=== PATIENT | male | born 1945 | race Caucasian/White ===

== ENCOUNTER 2017-10-02 22:02 | Inpatient (IN) | payer MEDICARE, BC, SELFPAY ==
[2017-10-02 20:50] VITALS: BP 130/76; PULSE 57; RESP 16; TEMP 36.9; O2SAT 95
[2017-10-02 20:51] VITALS: BP 128/73
[2017-10-02 20:55] VITALS: O2SAT 95
[2017-10-02 21:21] VITALS: PULSE 78
--- NOTE | 2017-10-02 21:35 | PCM.HP.STD ---
Problem List (1) Diabetes Status: Chronic (2) Stroke-like symptoms Status: Acute History of Present Illness Date of Admission: 10/02/17 Chief Complaint: Strokelike symptoms ?1 day. The patient is a 72 year old M with a significant history of diabetes who presents with strokelike symptoms that woke him up on the day of his admission. The patient stated that he woke up from sleep at about 5 AM on the day of admission and noted pain in his right frontal area. Also he noted a tightness and numbness around his right face including his right nose and his right cheek. Further, he noted that his right leg was weak and and it was difficult for him to walk in a straight line. Indeed he was veering towards his right side when he tried to walk. Associated with symptoms is nausea; vomiting; and a feeling of his environment spinning. His son reported that patient had slurred speech. On admission, Nurse reported that patient failed his swallow evaluation. Patient was at an outside hospital and he was transferred here for further care. Past Medical History Past Medical History (Chronic Problems): Chronic Problems Diabetes (Chronic) Allergies No Known Allergies Allergy (Verified 10/02/17 21:22) Home Medications: Ambulatory Orders Medication Instructions Recorded Aspirin [Aspirin, Baby] 81 mg PO DAILY@0800 10/02/17 Atorvastatin Calcium [Lipitor] 20 mg PO QHS 10/02/17 Glipizide 5 mg PO DAILY 10/02/17 Lisinopril [Zestril] 5 mg PO DAILY 10/02/17 Metformin HCl 1,000 mg PO DAILY 10/02/17 Naproxen 500 mg PO DAILY 10/02/17 Terazosin HCl 2 mg PO DAILY 10/02/17 Surgical History: no surgical history Lives: Alone Smoking Status: Former smoker Tobacco Use: Non-smoker Alcohol: None Drugs: None - *Family History Paternal History Items: Cancer Maternal History Items: Diabetes Review of Systems Constitutional: Denies: Chills, Fever, Weight Change Eyes: Denies: Blurred vision, Pain HEENT: Reports: Dysphasia Cardiovascular: Denies: Chest Pain, Palpitations Respiratory: Denies: Cough, Shortness of breath at rest, Sputum production Gastrointestinal: Denies: Abdominal Pain, Nausea, Vomiting Genitourinary: Denies: Dysuria Musculoskeletal: Reports: Joint Pain - Right knee. Denies: Joint Tenderness Skin: Denies: Rash, Wounds Neurological: Reports: Balance problems, Slurred speech, Difficulty swallowing, Focal weakness, Headaches, Numbness - Right face, Tingling - Right face Psychiatric: Denies: Anxiety, Depression, Homicidal Ideations, Suicidal Ideations Hematologic/ Lymphatic: Denies: Easy Bruising, Easy Bleeding VTE Information - Inpt Only VTE Present on Admission: No VTE Mechan Device Prophylaxis: None VTE Pharm Prophylaxis ordered?: Yes Patient Problems: Active and Suspected Problems Stroke-like symptoms (Acute) - Physical Exam General: Alert, Oriented x3, Cooperative HEENT: Atraumatic, PERRLA, EOMI, Normocephalic Neck: Supple Lungs: Clear to auscultation Cardiovascular: Regular rate, No murmurs Abdomen: Bowel Sounds Present, Soft, Non Tender Extremities: Tenderness - Right Lower leg Skin: No rashes, No breakdown Musculoskeletal: No Muscle Wasting Lymphatic: No Cervical, Supraclavicular, or Inguinal Adenopathy Neurological: - - Ptosis of right eye. Strength in the right slightly decreased about 4 out of 5. Strength in all other extremities 5/5 throughout. Reports dull sensation at right leg. Sensation at left leg unremarkable. Psych/Mental Status: Normal Affect, Appropriate Vital Signs Temp Pulse Resp BP Pulse Ox 98.4 F 57 L 16 128/73 H 95 10/02/17 20:50 10/02/17 20:50 10/02/17 20:50 10/02/17 20:51 10/02/17 20:50 Oxygen Delivery Method Room Air Weight: 97.7 kg Body Mass Index (BMI) 30.0 Assessment/Plan All Active Problems Stroke-like symptoms (Acute) The patient is a 72 year old M with a significant history of diabetes who presents with strokelike symptoms that woke him up on the day of his admission. Strokelike symptoms CT head from outside hospital did not show any acute pathology. MRI/MRA of head and neck ordered. Patient reports receiving aspirin per rectum from outside hospital. Since the patient failed swallow eval, will hold all p.o. medication until speech sees patient. PT/OT/ST evaluation and treatment. Blood glucose at outside hospital and over here is at least 300 Diabetes mellitus. Home oral hypoglycemic held as patient's feels a dysphagia screen. Lantus insulin and correction scale insulin ordered. Tobacco abuse Counseled Nicotine patch. DVT prophylaxis subcutaneous heparin. Code Visit Inpatient E&M: 80373 Init Hosp L3
[2017-10-02 22:26] LABS: Bedside Glucose 304 mg/dL (70-110)
[2017-10-02 23:04] VITALS: PULSE 81
[2017-10-02] MEDS: Insulin Lispro 100 UNIT/ML INSULN.PEN SQ (23:34)
[2017-10-02 23:38] VITALS: BP 131/60; PULSE 83; RESP 18; TEMP 36.6; O2SAT 96
[2017-10-03] VITALS (15 sets, daily range): BP systolic 126–162; BP diastolic 61–80; PULSE 74–97; RESP 16–18; TEMP 36.4–37.1; O2SAT 93–97
[2017-10-03] MEDS: Heparin Injection (Vial) 5,000 UNIT/ML VIAL 5000 UNIT SC ×3 (05:58→20:56)
[2017-10-03] MEDS: Insulin Lispro 100 UNIT/ML INSULN.PEN SQ ×4 (05:59→20:56)
[2017-10-03 06:11] LABS: Bedside Glucose 302 mg/dL (70-110)
[2017-10-03 07:06] LABS: Anion Gap 7 (5-15); BUN 26 mg/dL (7-18); BUN/Creat Ratio 19.3 RATIO (10-20); Calcium,Total 8.9 mg/dL (8.5-10.1); Chloride 104 mmol/L (98-107); Cholesterol 132 mg/dL (200); Creatinine, Serum 1.35 mg/dL (0.70-1.30); EST Glomerular Filtration Rate 56 mL/min (>60); Est Glom Filt Rate - Afr Amer 67 mL/min (>60); Estimated Creatinine Clearance 54.23 ml/min; Glucose 290 mg/dL (74-106); High Density Lipoprotein 34 mg/dL; Potassium 4.7 mmol/L (3.5-5.1); Sodium Level 136 mmol/L (136-145); Triglycerides 284 mg/dL; Very Low Density Lipoprotein 57 mg/dL (5-40)
--- NOTE | 2017-10-03 07:20 | ECHOD_ITS ---
Reason For Study: TIA/CVA Procedure This was a 2D Doppler, Color Flow transthoracic echocardiogram. Exam performed portable in patient room. Left Ventricle Normal size and thickness. The estimated ejection fraction is 65 %. Stage 1 diastolic dysfunction. No regional wall motion abnormalities noted. Right Ventricle Normal size and thickness. Normal systolic function. Atria Normal left atrium. Normal right atrium. Normal atrial septum. Bubble contrast study negative for right to left interatrial shunt. Mitral Valve The mitral valve is structurally normal. No prolapse or stenosis seen. Trivial mitral valve insufficiency. Tricuspid Valve Normal tricuspid valve. Mild (1+) tricuspid valve insufficiency. Right ventricular systolic pressure estimated to be 30 mmHg. Aortic Valve Trisinus/trileaflet aortic valve. Mild diffuse aortic valve thickening. Trivial aortic valve insufficiency. Pulmonic Valve Normal pulmonic valve. Trivial pulmonic valve insufficiency. Great Vessels Normal aortic root. Normal arch. Normal inferior vena cava. Inferior vena cava collapse with sniff. Pericardium/Pleural No pericardial effusion. Medication Performed a rapid injection of agitated mix of 9 cc saline and 1cc air to assess for atrial septal defect. MMode/2D Measurements & Calculations LVIDd: 4.2 cm IVSd: 0.84 cm Ao root diam: 3.0 cm LVIDs: 3.0 cm LVPWd: 0.85 cm RVDd: 3.4 cm FS: 28.0 % LAV(MOD-bp): 33.3 ml EDV(MOD-sp4): 54.9 ml SV(MOD-sp4): 33.5 ml LAV(MOD-bp) Indexed: 15.3 ml/m2 ESV(MOD-sp4): 21.4 ml LAV(MOD-sp2): 35.5 ml EF(MOD-sp4): 61.0 % LAV(MOD-sp4): 30.9 ml LA A4 area: 13.2 cm2 RA A4 area: 10.6 cm2 Doppler Measurements & Calculations MV E max zack: 93.8 cm/sec Lat Peak E' Zack: 10.0 cm/sec Med Peak E' Zack: 7.4 cm/sec MV A max zack: 87.6 cm/sec E/E' lat: 9.4 E/E' med: 12.6 MV E/A: 1.1 Ao V2 max: 122.3 cm/sec LV V1 max: 100.4 cm/sec PA V2 max: 105.8 cm/sec Ao max P.0 mmHg LV V1 max P.0 mmHg Ao V2 mean: 91.3 cm/sec Ao mean P.6 mmHg Ao V2 VTI: 29.4 cm TR max zack: 249.1 cm/sec TR max P.8 mmHg Interpretation Summary The estimated ejection fraction is 65 %. Stage 1 diastolic dysfunction. Bubble contrast study negative for right to left interatrial shunt. Right ventricular systolic pressure estimated to be 30 mmHg. Mild (1+) tricuspid valve insufficiency. Trivial aortic valve insufficiency. There is no comparison study available. Ordering Physician: Valentin Aldana Performed By: Shanna Tabares, MARISA, RVT
--- NOTE | 2017-10-03 07:51 | PCM.PROGNOTE ---
Patient Problems: Active and Suspected Problems Stroke-like symptoms (Acute) Subjective: Chief complaint: Follow-up after admission for strokelike symptoms. Patient seen and examined. No acute events overnight. He still complaining of numbness on the right cheek, difficulty opening the right eye. He mentioned that he tends to go to the right side when he walks because his right leg is weaker than the left. He reported difficulty swallowing. He denied chest pain or shortness of breath. He is afebrile, heart rate stable, blood pressure slightly elevated, pulse ox is maintained on room air. - Physical Exam General: Alert, Oriented x3, Cooperative, No apparent distress HEENT: Atraumatic, PERRLA, EOMI, Normocephalic Oral: Moist Mucosa, No Gingival or Mucosal Lesions/ Ulcerations Neck: Supple, No JVD, Negative Carotid Bruits, Trachea Midline, Thyroid Normal Size and Texture Lungs: Clear to auscultation, Normal air movement, No rhonchi, No wheeze, No rales Cardiovascular: Regular rate, Regular Rhythm, Normal S1, Normal S2, No murmurs, PMI Normal Abdomen: Bowel Sounds Present, Soft, Non Tender, Non-Distended, No Hepato-splenomegaly Extremities: No clubbing, No cyanosis, No edema Skin: No rashes, No breakdown Lymphatic: No Cervical, Supraclavicular, or Inguinal Adenopathy Neurological: Motor Exam 5/5 strength throughout, - - Minimal right-sided facial droop, other cranial nerves are intact. Psych/Mental Status: Normal Affect, Appropriate, Alert and oriented to time, place, person, mood and affect Vital Signs Temp Pulse Resp BP Pulse Ox 97.6 F L 74 16 162/76 H 93 10/03/17 05:50 10/03/17 06:59 10/03/17 05:50 10/03/17 05:50 10/03/17 05:50 Oxygen Delivery Method Room Air Weight: 215 lb 6.266 oz Body Mass Index (BMI) 30.0 Laboratory Tests Past 24 Hrs 10/02/17 10/03/17 10/03/17 22:40 06:25 06:25 Sodium 136 Potassium 4.7 Chloride 104 Carbon Dioxide 25.0 Anion Gap 7 BUN 26 H Creatinine 1.35 H Estim Creat Clear Calc 54.23 Est GFR (MDRD) Af Amer 67 Est GFR (MDRD) Non-Af 56 L BUN/Creatinine Ratio 19.3 Glucose 290 H Hemoglobin A1c Pending Calcium 8.9 Troponin I < 0.015 Triglycerides 284 H Cholesterol 132 LDL Cholesterol 41 VLDL Cholesterol 57 H HDL Cholesterol 34 L POC Glucose 10/03/17 10/02/17 05:57 22:16 POC Glucose 302 H 304 H Medical Necessity - Tobacco Use Smoking Status: Former smoker Tobacco Use: Non-smoker Assessment/Plan All Active Problems Stroke-like symptoms (Acute) This is a 72 years old male patient admitted directly from outside hospital for symptoms of right facial droop, right cheek numbness, difficulty swallowing and imbalance and he was admitted for evaluation for acute stroke. #1 strokelike symptoms: Patient still symptomatic with right facial droop, right cheek numbness, imbalance and going to the right side when walking. CT scan brain done at the outside hospital and was unremarkable, no acute infarct. His blood pressure slightly elevated, other vital signs are stable. EKG revealed normal sinus rhythm, normal AL interval, normal QRS, no evidence of acute ischemic changes or cardiac arrhythmias. Speech therapy consulted for evaluation for dysphagia. MRI brain and MRA of the head and neck ordered. Plan: Start aspirin, Lipitor, 2D echocardiogram, neurology consult. #2 hypertension: Blood pressure slightly elevated, allow permissive hypertension for probable stroke. Will resume lisinopril, labetalol IV as needed. #3 type 2 diabetes mellitus: Blood sugar has been in the 300s. Started on Lantus, sliding scale, will resume his diet, keep holding metformin. #4 hyperlipidemia: Lipid profile reviewed, revealed triglycerides of 284, total cholesterol of 132, LDL cholesterol 41 and HDL cholesterol 54. Started on Lipitor. #5 benign prostatic hypertrophy: Continue Cardura. #6 DVT prophylaxis: Subcu Lovenox. This note was generated with [employer] dictation software. It may contain incorrect words, spelling, and punctuation that were not noted in checking the note before signing. Code Visit Inpatient E&M: 87032 Subs Hosp L2
[2017-10-03 08:29] LABS: Hemoglobin A1c 10.6 % (4.2-6.3)
--- NOTE | 2017-10-03 10:42 | PCM.CONS.GEN ---
Reason for Consult Date of Consultation: 10/03/17 Reason for Consultation: NAUSEA, VERTIGO AND RIGHT SIDED WEAKNESS History of Present Illness: The patient is a 72 right handed white male yesterday experienced headache followed by nausea, vomiting, and right sided weakness. presented to [facility] and sent here. 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 denies vision changes. reports nausea improved but still very unsteady. takes baby asa daily at home. no tobacco. no etoh. 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 per admit h&p:he patient is a 72 year old M with a significant history of diabetes who presents with strokelike symptoms that woke him up on the day of his admission. The patient stated that he woke up from sleep at about 5 AM on the day of admission and noted pain in his right frontal area. Also he noted a tightness and numbness around his right face including his right nose and his right cheek. Further, he noted that his right leg was weak and and it was difficult for him to walk in a straight line. Indeed he was veering towards his right side when he tried to walk. Associated with symptoms is nausea; vomiting; and a feeling of his environment spinning. His son reported that patient had slurred speech. On admission, Nurse reported that patient failed his swallow evaluation. Patient was at an outside hospital and he was transferred here for further care. Past Medical History Past Medical History (Chronic Problems): Chronic Problems Benign prostatic hyperplasia (Chronic) Hyperlipidemia (Chronic) Hypertension (Chronic) Type 2 diabetes mellitus (Chronic) Allergies No Known Allergies Allergy (Verified 10/02/17 21:22) Home Medications: Ambulatory Orders Medication Instructions Recorded Aspirin [Aspirin, Baby] 81 mg PO DAILY@0800 10/02/17 Atorvastatin Calcium [Lipitor] 20 mg PO QHS 10/02/17 Glipizide 5 mg PO DAILY 10/02/17 Lisinopril [Zestril] 5 mg PO DAILY 10/02/17 Metformin HCl 1,000 mg PO DAILY 10/02/17 Naproxen 500 mg PO DAILY 10/02/17 Terazosin HCl 2 mg PO DAILY 10/02/17 Surgical History: no surgical history Lives: Alone Smoking Status: Former smoker Tobacco Use: Non-smoker Alcohol: None Drugs: None - *Family History Paternal History Items: Cancer Maternal History Items: Diabetes Patient Problems: Active and Suspected Problems Stroke-like symptoms (Acute) - Physical Exam General: Alert, Oriented x3, Cooperative HEENT: Atraumatic, PERRLA, EOMI Neurological: Cranial nerves II-XII grossly intact Psych/Mental Status: Normal Affect Vital Signs Temp Pulse Resp BP Pulse Ox 36.4 C L 74 16 162/76 H 93 10/03/17 05:50 10/03/17 06:59 10/03/17 05:50 10/03/17 05:50 10/03/17 08:07 Oxygen Delivery Method Room Air Weight: 97.7 kg Body Mass Index (BMI) 30.0 Laboratory Tests Past 24 Hrs 10/02/17 10/03/17 10/03/17 22:40 06:25 06:25 Sodium 136 Potassium 4.7 Chloride 104 Carbon Dioxide 25.0 Anion Gap 7 BUN 26 H Creatinine 1.35 H Estim Creat Clear Calc 54.23 Est GFR (MDRD) Af Amer 67 Est GFR (MDRD) Non-Af 56 L BUN/Creatinine Ratio 19.3 Glucose 290 H Hemoglobin A1c 10.6 H Calcium 8.9 Troponin I < 0.015 Triglycerides 284 H Cholesterol 132 LDL Cholesterol 41 VLDL Cholesterol 57 H HDL Cholesterol 34 L POC Glucose 10/03/17 10/02/17 05:57 22:16 POC Glucose 302 H 304 H Current Home Med List Medication Instructions Recorded Confirmed Type Aspirin [Aspirin, Baby] 81 mg PO DAILY@0800 10/02/17 10/02/17 History Atorvastatin Calcium [Lipitor] 20 mg PO QHS 10/02/17 10/02/17 History Glipizide 5 mg PO DAILY 10/02/17 10/02/17 History Lisinopril [Zestril] 5 mg PO DAILY 10/02/17 10/02/17 History Metformin HCl 1,000 mg PO DAILY 10/02/17 10/02/17 History Naproxen 500 mg PO DAILY 10/02/17 10/02/17 History Terazosin HCl 2 mg PO DAILY 10/02/17 10/02/17 History Current Medications Generic Name Dose Route Start Last Admin Trade Name Freq PRN Reason Stop Dose Admin Aspirin 81 mg 10/03/17 08:00 Aspirin, Baby PO DAILY@0800 [facility] Atorvastatin Calcium 80 mg 10/03/17 22:00 Lipitor PO QHS TEETEE Dextrose 0 gm 10/02/17 22:21 D50w Syringe IV X1 PRN Hypoglycemia Protocol Doxazosin Mesylate 2 mg 10/03/17 10:00 Cardura PO DAILY TEETEE Glipizide 5 mg 10/03/17 08:00 Glucotrol PO DAILY@0800 TEETEE Glucagon 1 mg 10/02/17 22:21 IM .X1 PRN Hypoglycemia Heparin Sodium (Porcine) 5,000 unit 10/03/17 06:00 10/03/17 05:58 Heparin Na SC 5,000 unit Q8 TEETEE Administration Sodium Chloride 1,000 mls @ 75 mls/hr 10/03/17 07:25 IV .[id number] TEETEE Insulin Glargine 10 units 10/03/17 04:30 10/03/17 05:58 Lantus ([facility]) SC 10 u DAILY TEETEE Administration Insulin Human Lispro 0 unit 10/03/17 03:54 10/03/17 05:59 Humalog Kwikpen ([facility]) SQ 6 u Q6 TEETEE Administration Protocol Labetalol HCl 10 mg 10/02/17 22:21 Trandate IV Q4H PRN PRN SBP>220 OR dbp >120 Lisinopril 5 mg 10/03/17 10:00 Zestril PO DAILY TEETEE Magnesium Hydroxide 30 ml 10/02/17 22:21 Milk Of Magnesia PO DAILY PRN Constipation Sodium Chloride 5 - 30 ml 10/02/17 21:25 IV UD PRN SALINE FLUSH MRI reviewed. Acute right lateral medullary infarct. MRA does not show significant stenosis Assessment/Plan All Active Problems Stroke-like symptoms (Acute) lateral medullary infarct pt/ot/sp plavix bp control consider rehab statin await echo tele
--- NOTE | 2017-10-03 10:45 | CON.PCM_ITS ---
Reason for Consult Date of Consultation: 10/03/17 Reason for Consultation: NAUSEA, VERTIGO AND RIGHT SIDED WEAKNESS History of Present Illness: The patient is a 72 right handed white male yesterday experienced headache followed by nausea, vomiting, and right sided weakness. presented to [facility] and sent here. 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 denies vision changes. reports nausea improved but still very unsteady. takes baby asa daily at home. no tobacco. no etoh. 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 per admit h&p:he patient is a 72 year old M with a significant history of diabetes who presents with strokelike symptoms that woke him up on the day of his admission. The patient stated that he woke up from sleep at about 5 AM on the day of admission and noted pain in his right frontal area. Also he noted a tightness and numbness around his right face including his right nose and his right cheek. Further, he noted that his right leg was weak and and it was difficult for him to walk in a straight line. Indeed he was veering towards his right side when he tried to walk. Associated with symptoms is nausea; vomiting; and a feeling of his environment spinning. His son reported that patient had slurred speech. On admission, Nurse reported that patient failed his swallow evaluation. Patient was at an outside hospital and he was transferred here for further care. Past Medical History Past Medical History (Chronic Problems): Chronic Problems Benign prostatic hyperplasia (Chronic) Hyperlipidemia (Chronic) Hypertension (Chronic) Type 2 diabetes mellitus (Chronic) Allergies No Known Allergies Allergy (Verified 10/02/17 21:22) Home Medications: Ambulatory Orders Medication Instructions Recorded Aspirin [Aspirin, Baby] 81 mg PO DAILY@0800 10/02/17 Atorvastatin Calcium [Lipitor] 20 mg PO QHS 10/02/17 Glipizide 5 mg PO DAILY 10/02/17 Lisinopril [Zestril] 5 mg PO DAILY 10/02/17 Metformin HCl 1,000 mg PO DAILY 10/02/17 Naproxen 500 mg PO DAILY 10/02/17 Terazosin HCl 2 mg PO DAILY 10/02/17 Surgical History: no surgical history Lives: Alone Smoking Status: Former smoker Tobacco Use: Non-smoker Alcohol: None Drugs: None - *Family History Paternal History Items: Cancer Maternal History Items: Diabetes Patient Problems: Active and Suspected Problems Stroke-like symptoms (Acute) - Physical Exam General: Alert, Oriented x3, Cooperative HEENT: Atraumatic, PERRLA, EOMI Neurological: Cranial nerves II-XII grossly intact Psych/Mental Status: Normal Affect Vital Signs Temp Pulse Resp BP Pulse Ox 36.4 C L 74 16 162/76 H 93 10/03/17 05:50 10/03/17 06:59 10/03/17 05:50 10/03/17 05:50 10/03/17 08:07 Oxygen Delivery Method Room Air Weight: 97.7 kg Body Mass Index (BMI) 30.0 Laboratory Tests Past 24 Hrs 10/02/17 10/03/17 10/03/17 22:40 06:25 06:25 Sodium 136 Potassium 4.7 Chloride 104 Carbon Dioxide 25.0 Anion Gap 7 BUN 26 H Creatinine 1.35 H Estim Creat Clear Calc 54.23 Est GFR (MDRD) Af Amer 67 Est GFR (MDRD) Non-Af 56 L BUN/Creatinine Ratio 19.3 Glucose 290 H Hemoglobin A1c 10.6 H Calcium 8.9 Troponin I < 0.015 Triglycerides 284 H Cholesterol 132 LDL Cholesterol 41 VLDL Cholesterol 57 H HDL Cholesterol 34 L POC Glucose 10/03/17 10/02/17 05:57 22:16 POC Glucose 302 H 304 H Current Home Med List Medication Instructions Recorded Confirmed Type Aspirin [Aspirin, Baby] 81 mg PO DAILY@0800 10/02/17 10/02/17 History Atorvastatin Calcium [Lipitor] 20 mg PO QHS 10/02/17 10/02/17 History Glipizide 5 mg PO DAILY 10/02/17 10/02/17 History Lisinopril [Zestril] 5 mg PO DAILY 10/02/17 10/02/17 History Metformin HCl 1,000 mg PO DAILY 10/02/17 10/02/17 History Naproxen 500 mg PO DAILY 10/02/17 10/02/17 History Terazosin HCl 2 mg PO DAILY 10/02/17 10/02/17 History Current Medications Generic Name Dose Route Start Last Admin Trade Name Freq PRN Reason Stop Dose Admin Aspirin 81 mg 10/03/17 08:00 Aspirin, Baby PO DAILY@0800 [facility] Atorvastatin Calcium 80 mg 10/03/17 22:00 Lipitor PO QHS TEETEE Dextrose 0 gm 10/02/17 22:21 D50w Syringe IV X1 PRN Hypoglycemia Protocol Doxazosin Mesylate 2 mg 10/03/17 10:00 Cardura PO DAILY TEETEE Glipizide 5 mg 10/03/17 08:00 Glucotrol PO DAILY@0800 TEETEE Glucagon 1 mg 10/02/17 22:21 IM .X1 PRN Hypoglycemia Heparin Sodium (Porcine) 5,000 unit 10/03/17 06:00 10/03/17 05:58 Heparin Na SC 5,000 unit Q8 TEETEE Administration Sodium Chloride 1,000 mls @ 75 mls/hr 10/03/17 07:25 IV .[id number] TEETEE Insulin Glargine 10 units 10/03/17 04:30 10/03/17 05:58 Lantus ([facility]) SC 10 u DAILY TEETEE Administration Insulin Human Lispro 0 unit 10/03/17 03:54 10/03/17 05:59 Humalog Kwikpen ([facility]) SQ 6 u Q6 TEETEE Administration Protocol Labetalol HCl 10 mg 10/02/17 22:21 Trandate IV Q4H PRN PRN SBP>220 OR dbp >120 Lisinopril 5 mg 10/03/17 10:00 Zestril PO DAILY TEETEE Magnesium Hydroxide 30 ml 10/02/17 22:21 Milk Of Magnesia PO DAILY PRN Constipation Sodium Chloride 5 - 30 ml 10/02/17 21:25 IV UD PRN SALINE FLUSH MRI reviewed. Acute right lateral medullary infarct. MRA does not show significant stenosis Assessment/Plan All Active Problems Stroke-like symptoms (Acute) lateral medullary infarct pt/ot/sp plavix bp control consider rehab statin await echo tele
[2017-10-03] MEDS: 0.9% Normal Saline 1,000 ML 75 ML IV (11:09)
[2017-10-03 12:45] LABS: Bedside Glucose 266 mg/dL (70-110)
--- NOTE | 2017-10-03 13:19 | CASEMGMT ---
Face to Face with patient for initial transition planning/care coordination assessment. JIMENA DANIEL introduced self and role at [facility], pt voices understanding and consents to assessment at this time. Pt is sitting up in bed in no distress at this time. Pt is A/O x4 at this time and answers all questions appropriately at this time. Care providers, pharmacy, and demographics verified. See attached link. Pt voices no further concerns/needs at this time. Advised pt to ask for CM if any further questions/concerns/needs arise, voices understanding. Referral to [facility] for inpt rehab, voices understanding. PLAN: [facility] JIMENA DANIEL
--- NOTE | 2017-10-03 13:46 | CASEMGMT ---
Updated clinicals with declination [facility] at [facility] and notified of [facility], dx and fax sent, voices understanding. Cynthia HESS CM
--- NOTE | 2017-10-03 13:57 | CASEMGMT ---
Patient expressed interest in going to [facility] 4th floor rehab unit to RN CM. SW called [facility] post acute referral line and left a message with referral. Plan: Possibly [facility] 4th floor rehab unit pending acceptance and insurance approval. Bhumika MOREIRA MSW
--- NOTE | 2017-10-03 14:00 | RAD_ITS ---
STUDY: SWALLOWING STUDY (MODIFIED BARIUM SWALLOW WITH SPEECH THERAPY) REASON FOR EXAM: Male, 72 years old. Dysphagia. TECHNIQUE: The examination was performed with Speech Pathology in attendance. Under fluoroscopic observation, the patient ingested thin barium, thick barium, barium pudding, and barium coated cracker. FLUOROSCOPY TIME: 2:13 minutes/seconds DOSE: 5.23 mGy RADIOLOGIST INVOLVEMENT: Yes, present COMPARISON: None available. FINDINGS: The following was observed during swallowing of the various mixtures of barium: Thin Barium: There was no finding of aspiration below the vocal cords. Thick Barium: There was no finding of aspiration below the vocal cords. Barium Pudding: There was no finding of aspiration below the vocal cords. Barium Coated Cracker: There was no finding of aspiration below the vocal cords. RAD/Swallowing Function w/Video IMPRESSION: No finding of increased risk for aspiration below the vocal cords. The swallow study findings were discussed with the patient by the speech pathologist at the conclusion of the examination. Please see speech pathology report for more information and recommendations. The procedure was performed by Bayron Jackson under the direct supervision of Dr. Richter. Electronically Signed: Carlton Richter, at 15:55 EDT Tel , Service support ,
--- NOTE | 2017-10-03 14:30 | SP.MBSS_ITS ---
PRIMARY / SECONDARY DIAGNOSIS: dysphagia (R13.10) REFERRING PHYSICIAN: Dr. Valentin Aldana MD CURRENT DIET: NPO DENTITION: dentures present, adequate fit MENTAL STATUS: adequate to facilitate participation RESPIRATORY STATUS: O2 via room air PREVIOUS MODIFIED BARIUM SWALLOW STUDY: none REASON FOR REFERRAL: Patient is a 72 year old male referred for a modified barium swallow (MBS) study to objectively assess the Patients oropharyngeal swallow function under fluoroscopy secondary to an acute right sided medullary cerebrovascular accident , with objective assessment under fluoroscopy indicated given the heightened concerns for silent aspiration associated with site of lesion. ADDITIONAL OBJECTIVE ASSESSMENT RESULTS: 10/03/2017 MRI revealed an acute right medullary infarct MEDICAL HISTORY: Benign prostatic hyperplasia, hyperlipidemia, hypertension, type 2 diabetes mellitus. STUDY FINDINGS: Patient participated in a Modified Barium Swallow (MBS) study on 10/03/2017. Dr. Richter was the radiologist present for this evaluation. This study was recorded in the lateral view and images were sent to PACs for storage. The following consistencies were presented to this patient for analysis of oropharyngeal swallow function: thin liquids, pudding, and a regular textured, Peggy Doone cookie. Results of the MBS are as follows: PENETRATION / ASPIRATION SCALE (AVALOS): 1 = does not enter airway 2 = enters airway/above vocal folds/ejected 3 = enters airway/above vocal folds/not ejected 4 = enters airway/contacts vocal folds/ejected 5 = enters airway/contacts vocal folds/not ejected 6 = enters airway/below vocal folds/ejected 7 = enters airway/below vocal folds/not ejected despite effort 8 = enters airway/below vocal folds/no effort PENETRATION / ASPIRATION SCALE (SCORE): Thin liquid - 5 mL tsp.: 1 Thin liquids via cup (single sip): 1 Thin liquids via cup (single sip): 1 Thin liquids via cup (single sip): 1 Thin liquids via straw (single sip): 1 Thin liquids via straw (sequential swallows): 2 Pudding via spoon: 1 Pudding via spoon (right head turn): 1 Pudding via spoon (left head turn): 1 Regular textured cookie (right head turn): 1 Thin liquids via straw (single sip): 3 Thin liquids via straw (sequential swallows): 3 Thin liquids via straw (single sip): 1 Thin liquids via straw (single sip): 1 IMPRESSION: DIAGNOSIS: mild to moderate oropharyngeal dysphagia (R13.12) ORAL PHASE CHARACTERIZED BY: LABIAL SEAL: no labial escape TONGUE CONTROL DURING BOLUS MANIPULATION: escape to lateral buccal cavity/ floor of mouth BOLUS PREPARATION / MASTICATION: slow prolonged chewing/mashing with complete recollection BOLUS TRANSPORT / LINGUAL MOTION: brisk tongue motion ORAL RESIDUE: trace residue lining oral structures PHARYNGEAL PHASE CHARACTERIZED BY: INITIATION OF PHARYNGEAL SWALLOW: bolus head in pyriforms at first hyoid excursion SOFT PALATE ELEVATION: no bolus between soft palate and pharyngeal wall LARYNGEAL ELEVATION: complete superior movement of thyroid cartilage with complete approximation of arytenoids cartilage to epiglottic petiole ANTERIOR HYOID EXCURSION: partial anterior movement EPIGLOTTIC MOVEMENT: complete epiglottic inversion LARYNGEAL VESTIBULE CLOSURE AT HEIGHT OF SWALLOW: intermittent incomplete laryngeal vestibule closure with narrow column of air/contrast in laryngeal vestibule PHARYNGEAL STRIPPING WAVE: pharyngeal stripping wave present / diminished PHARYNGOESOPHAGEAL SEGMENT OPENING: complete distension and complete duration with no obstruction of flow TONGUE BASE RETRACTION: narrow column of contrast between tongue base and posterior pharyngeal wall PHARYNGEAL RESIDUE: collection of residue within or on pharyngeal structures ( valleculae, posterior pharyngeal wall, and pyriforms); trace residue within or on pharyngeal structures (pharyngoesophageal segment opening) ESOPHAGEAL PHASE CHARACTERIZED BY: ESOPHAGEAL BOLUS CLEARANCE IN THE UPRIGHT POSITION: could not view EFFECTS OF TREATMENT STRATEGIES ATTEMPTED: Left head turn = ineffective Right head turn = moderately effective Liquid chaser = moderately effective Reduced bolus size = moderately effective DIET TEXTURE RECOMMENDATIONS: Will recommend a mechanical soft textured, thin liquid diet. COMPENSATORY STRATEGIES RECOMMENDED: Supervision with assistance as needed, right head turn with solid textures, check for right sided buccal pocketing, liquid chaser at reasonable intervals, reduced bolus volume, seated upright at 90 degrees during PO intake, remain upright for 30-60 minutes post meal (GERD precaution), medications with applesauce. INTERPRETATION OF RESULTS: Patient presents with mild to moderate oropharyngeal dysphagia (R13.12) secondary to an acute right sided medullary cerebrovascular accident. Oral phase primarily marked by mild mastication inefficiency / prolonged mastication (albeit effective);and poor oral clearance secondary to reduced intraoral sensitivity / coordination resulting in subadaquate oral clearance / buccal pocketing, little clinical significance under fluoroscopy, though would advise concern during prolonged intake. Pharyngeal phase primarily marked by moderate pharyngeal dysmotility with suspected right sided impairment (could not stand Patient due to balance concerns / fall risk); impaired pharyngeal swallow onset timing resulting in suboptimal bolus location upon swallow onset; reduced closure of the airway during deglutition attributed to reduced anterior hyoid excursion resulting in inconsistent laryngeal vestibule closure / pressure generated to expel penetrated material. All deficits ameliorated with right head turn and reduction in bolus volume. Prominent cricopharyngeal bar located at the C-6 level, no effect on pharyngoesophageal motility. Belching and hiccups noted post intake (approximately 5 minutes following trial completion). No aspiration appreciated throughout trials, unable to definitively rule out silent aspiration. RECOMMENDATIONS: Patient requires intensive skilled speech-language intervention targeting continued diet texture management (would consider advancement to soft / regular textures after independent execution of right head turn maneuver); training and implementation of recommended compensatory strategies; training and implementation of recommended oropharyngeal strengthening exercises to facilitate improved labial control / strength, lingual control / strength, laryngeal vestibule closure / pressure, and pharyngeal motility; ADDITIONAL COMMENTS/RECOMMENDATIONS: Results and recommendations were discussed with the Patient immediately following MBS completion, with the Patient verbalizing understanding and agreement with all recommendations and education provided. IMAGE COUNT: [id number] Samson Persaud M.A., CCC-CATALOGUE CLERK [facility] Speech-Language Pathology Department [email or web address]
[2017-10-03] MEDS: Lisinopril 5 MG Tablet PO (17:23)
[2017-10-03] MEDS: Doxazosin 1 MG Tablet 2 MG PO (17:23)
[2017-10-03] MEDS: glipiZIDE 5 MG Tablet PO (17:23)
[2017-10-03] MEDS: Aspirin 81 MG TAB.CHEW PO (17:24)
[2017-10-03 17:40] LABS: Bedside Glucose 236 mg/dL (70-110)
[2017-10-03] MEDS: Atorvastatin Calcium 80 MG Tablet PO (20:56)
[2017-10-03] MEDS: 0.9% NaCl Peripheral Flush Adult/Peds IV (20:57)
--- NOTE | 2017-10-03 22:21 | MRI_ITS ---
STUDY: MRA OF THE HEAD WITHOUT CONTRAST REASON FOR EXAM: Male, 72 years old. CVA. 1 day of right facial numbness and droop, difficulty swallowing, right leg weakness. TECHNIQUE: 3-D [id number] (TOF) imaging was performed with MIPs. The study was performed unenhanced. COMPARISON: None. FINDINGS: Normal bilateral petrous carotid arteries. Normal right cavernous carotid artery with a normal supraclinoid bifurcation. Normal left cavernous carotid artery with a normal supraclinoid bifurcation. Normal right A1 segments of the anterior cerebral artery. Normal left A1 segments of the anterior cerebral artery. Normal intact anterior communicating artery (ACOM). Normal bilateral A2 segments of the anterior cerebral arteries. Normal right M1 and M2 segments of the middle cerebral arteries, with a normal M1 bifurcation. Normal left M1 and M2 segments of the middle cerebral arteries, with a normal M1 bifurcation. There is non-visualization of the right posterior communicating artery (PCOM). There is non-visualization of the left posterior communicating artery (PCOM). Normal bilateral vertebral arteries. Normal basilar artery with a normal basilar bifurcation. The visualized bilateral superior cerebellar (SCA) arteries are normal. Normal bilateral P1, P2 and visualized P3 segments of the posterior cerebral arteries. There is no demonstrated aneurysm of the torres [place] of [place]. There is no major vessel occlusion or hemodynamically significant stenosis. There is no demonstrated abnormality of the visualized brain. MRI/MRA Head ONLY without Contrast IMPRESSION: Normal MRA of the head Electronically Signed: Marina Gates MD at 10:21 EDT Tel , Service support ,
--- NOTE | 2017-10-03 22:21 | MRI_ITS ---
STUDY: MRI BRAIN WITHOUT CONTRAST REASON FOR EXAM: Male, 72 years old. CVA,1 day of right facial numbness and droop, difficulty swallowing, right leg weakness TECHNIQUE: Standardized multiplanar fat and water weighted pulse sequences were obtained. COMPARISON: None. FINDINGS: There is mild cerebral atrophy with widening of the extra-axial spaces and ventricular dilatation. There are periventricular and subcortical white matter hyperintensities, consistent with mild chronic microvascular ischemic changes. There is a 6 mm area of restricted diffusion (diffusion image #7 series 4) RIGHT medulla with correlated drop of signal on a DC map, suspicious for acute infarction. Normal bilateral basal ganglia. Normal thalami. There is no extra-axial fluid accumulation. Normal flow voids within the major intracranial circulation suggesting patency by spin echo criteria. Normal sella turcica, pituitary gland, infundibular stalk, optic chiasm and hypothalamus. Normal tectal plate and pineal gland. Normal visualized paranasal sinuses. MRI/Brain without Contrast IMPRESSION: Acute right medullary infarction. N.B. : The above information has been verbally conveyed by Marina Gates MD to Shanna Rosado , [facility]- In-Patient RN, on 10/03/2017 10:49:52 (ET). Electronically Signed: Marina Gates MD at 10:52 EDT Tel , Service support ,
--- NOTE | 2017-10-03 22:21 | MRI_ITS ---
STUDY: MRA NECK WITH AND WITHOUT CONTRAST REASON FOR EXAM: Male, 72 years old. CVA,1 day of right facial numbness and droop, difficulty swallowing, right leg weakness. TECHNIQUE: 3-D [id number]-mhyjsv (TOF) imaging was performed in an 1.5 T MRI scanner. 10 ml of Gadavist was administered for the contrast enhanced images. COMPARISON: None. FINDINGS: RIGHT CAROTID ARTERIES: Normal right common carotid artery (CCA). Normal right common carotid bulb. Normal origin of the right internal carotid (ICA) artery without a hemodynamically significant stenosis. Normal visualized cervical portion of the right internal carotid artery. Normal origin of the right external carotid artery (ECA). LEFT CAROTID ARTERIES: Normal left common carotid artery (CCA). Normal left common carotid bulb. Normal origin of the left internal carotid (ICA) artery without a hemodynamically significant stenosis. Normal visualized cervical portion of the left internal carotid artery. Normal origin of the left external carotid artery (ECA). VERTEBRAL ARTERIES: Normal antegrade flow within the bilateral vertebral artery without a hemodynamically significant stenosis. MRI/MRA Neck WITH and W/O Contrast IMPRESSION: Unremarkable bilateral cervical carotid and vertebral arteries. Electronically Signed: Marina Gates MD at 10:36 EDT Tel , Service support ,
[2017-10-03 22:45] LABS: Bedside Glucose 246 mg/dL (70-110)
[2017-10-04] VITALS (14 sets, daily range): BP systolic 111–152; BP diastolic 70–78; PULSE 79–106; RESP 16–18; TEMP 36.7–37.1; O2SAT 95–98
[2017-10-04] MEDS: 0.9% Normal Saline 1,000 ML 75 ML IV (02:40)
[2017-10-04] MEDS: 0.9% NaCl Peripheral Flush Adult/Peds IV (02:41)
[2017-10-04] MEDS: Heparin Injection (Vial) 5,000 UNIT/ML VIAL 5000 UNIT SC ×3 (06:19→21:34)
[2017-10-04 06:29] LABS: Absolute Lymphocyte Count 1.73 X10^3/ul (0.83-4.51); Basophil# 0.04 X10^3/uL; Basophil% 0.7 % (0-1); Eosinophil# 0.21 X10^3/uL; Eosinophils% 3.9 % (0-5); Hematocrit 38.9 % (40-54); Hemoglobin 13.3 g/dl (13.0-16.5); Lymphocyte # 1.73 X10^3/ul (4.0); Lymphocyte % 31.8 % (19-41); Mean Corp Hgb Conc 34.2 g/gl (32-36); Mean Corpuscular Hgb 29.6 pg (27.0-32.0); Mean Corpuscular Volume 86.4 fL (80-94); Mean Platelet Vol. 9.7 fl (6.2-12.0); Monocyte# 0.43 X10^3/uL; Monocyte% 7.9 % (0-10); Neutrophil # 3.01 X10^3/uL (2.7-7.7); Neutrophil % 55.3 % (47-70); Platelet Count 190 K/mm3 (150-450); RBC Distribution Width CV 13.2 % (11.6-14.6); RBC Distribution Width SD 40.7 fl (35.1-43.9); White Blood Count 5.4 K/mm3 (4.4-11.0)
[2017-10-04 06:30] LABS: POSITIVE COUNT NO; POSITIVE DIFFERENTIAL NO; POSITIVE MORPHOLOGY NO
[2017-10-04 06:34] LABS: Anion Gap 8 (5-15); BUN 19 mg/dL (7-18); BUN/Creat Ratio 14.6 RATIO (10-20); Calcium,Total 8.5 mg/dL (8.5-10.1); Chloride 105 mmol/L (98-107); EST Glomerular Filtration Rate 58 mL/min (>60); Est Glom Filt Rate - Afr Amer 70 mL/min (>60); Estimated Creatinine Clearance 56.31 ml/min; Glucose 245 mg/dL (74-106); Potassium 4.4 mmol/L (3.5-5.1); Sodium Level 137 mmol/L (136-145)
[2017-10-04 06:51] LABS: Bedside Glucose 250 mg/dL (70-110)
--- NOTE | 2017-10-04 07:52 | PCM.PROGNOTE ---
Patient Problems: Active and Suspected Problems Stroke-like symptoms (Acute) Subjective: Chief complaint: Follow-up after admission for acute right medullary infarction. Patient seen and examined. No acute events overnight. He is still complaining of right cheek. Power of the right side is almost normal. He mentioned that he still drifts towards the right side when he walks. Denied chest pain or shortness of breath. His vital signs are stable. - Physical Exam General: Alert, Oriented x3, Cooperative, No apparent distress HEENT: Atraumatic, PERRLA, EOMI, Normocephalic Oral: Moist Mucosa, No Gingival or Mucosal Lesions/ Ulcerations Neck: Supple, No JVD, Negative Carotid Bruits, Trachea Midline, Thyroid Normal Size and Texture Lungs: Clear to auscultation, Normal air movement, No rhonchi, No wheeze, No rales Cardiovascular: Regular rate, Regular Rhythm, Normal S1, Normal S2, PMI Normal Abdomen: Bowel Sounds Present, Soft, Non Tender, Non-Distended, No Hepato-splenomegaly Extremities: No clubbing, No cyanosis, No edema Skin: No rashes, No breakdown Lymphatic: No Cervical, Supraclavicular, or Inguinal Adenopathy Neurological: Motor Exam 5/5 strength throughout, - - Minimal right facial droop, other cranial nerves are intact. Psych/Mental Status: Normal Affect, Appropriate, Alert and oriented to time, place, person, mood and affect Vital Signs Temp Pulse Resp BP Pulse Ox 98.6 F 85 16 127/71 H 98 10/04/17 06:15 10/04/17 06:59 10/04/17 06:15 10/04/17 06:15 10/04/17 06:15 Oxygen Delivery Method Room Air Weight: 215 lb 6.266 oz Body Mass Index (BMI) 30.0 Intake and Output for Last 24 Hours 10/02/17 10/03/17 10/04/17 23:59 23:59 23:59 Intake Total 487 / 487 697 / 697 Balance 487 / 487 697 / 697 Laboratory Tests Past 24 Hrs 10/03/17 10/04/17 10/04/17 06:25 06:00 06:00 WBC 5.4 RBC 4.50 L Hgb 13.3 Hct 38.9 L MCV 86.4 MCH 29.6 MCHC 34.2 RDW 13.2 RDW Differential 40.7 Plt Count 190 MPV 9.7 Immature Gran % (Auto) 0.400 Neut % (Auto) 55.3 Lymph % (Auto) 31.8 [place] % (Auto) 7.9 Eos % (Auto) 3.9 Baso % (Auto) 0.7 Absolute Neuts (auto) 3.0 Absolute Lymphs (auto) 1.73 Total Counted Not Reportable Sodium 137 Potassium 4.4 Chloride 105 Carbon Dioxide 24.0 Anion Gap 8 BUN 19 H Creatinine 1.30 Estim Creat Clear Calc 56.31 Est GFR (MDRD) Af Amer 70 Est GFR (MDRD) Non-Af 58 L BUN/Creatinine Ratio 14.6 Glucose 245 H Hemoglobin A1c 10.6 H Calcium 8.5 POC Glucose 10/04/17 10/03/17 10/03/17 06:48 20:53 17:14 POC Glucose 250 H 246 H 236 H 10/03/17 12:36 POC Glucose 266 H Medical Necessity - Tobacco Use Smoking Status: Former smoker Tobacco Use: Non-smoker Assessment/Plan All Active Problems Stroke-like symptoms (Acute) This is a 72 years old male patient admitted directly from outside hospital for symptoms of right facial droop, right cheek numbness, difficulty swallowing and imbalance and he was admitted for evaluation for acute stroke. #1 Acute right medullary infarction: With resultant minimal right facial droop/right cheek numbness and dysphagia. MRI of the brain revealed acute right medullary infarction. MRA of the head and neck revealed no hemodynamically significant vascular disease or stenosis. 2D echocardiogram revealed ejection fraction 65%, stage I diastolic dysfunction and bubble contrast study negative for phnod-ak-epap shunt. Patient is on Plavix and Lipitor. Blood pressure under control. Neurology consulted. Plan for placement to nursing home facility versus rehabilitation. #2 dysphagia: Secondary to above. Patient was seen by speech therapy, on soft mechanical diet and regular temp liquid. #3 hypertension: Blood pressure stabilized. He is on lisinopril. #4 type 2 diabetes mellitus: Blood sugar has been in 200-300s. He is on Lantus, sliding scale, on glipizide as well. Metformin held. Plan to change Lantus to Levemir 8 units twice daily. #5 hyperlipidemia: Continue Lipitor. #6 benign prostatic hypertrophy: Continue Cardura. #7 DVT prophylaxis: Subcu Lovenox. This note was generated with [employer] software. It may contain incorrect words, spelling, and punctuation that were not noted in checking the note before signing.
--- NOTE | 2017-10-04 07:58 | PN_ITS ---
Patient Problems: Active and Suspected Problems Stroke-like symptoms (Acute) Subjective: Chief complaint: Follow-up after admission for acute right medullary infarction. Patient seen and examined. No acute events overnight. He is still complaining of right cheek. Power of the right side is almost normal. He mentioned that he still drifts towards the right side when he walks. Denied chest pain or shortness of breath. His vital signs are stable. - Physical Exam General: Alert, Oriented x3, Cooperative, No apparent distress HEENT: Atraumatic, PERRLA, EOMI, Normocephalic Oral: Moist Mucosa, No Gingival or Mucosal Lesions/ Ulcerations Neck: Supple, No JVD, Negative Carotid Bruits, Trachea Midline, Thyroid Normal Size and Texture Lungs: Clear to auscultation, Normal air movement, No rhonchi, No wheeze, No rales Cardiovascular: Regular rate, Regular Rhythm, Normal S1, Normal S2, PMI Normal Abdomen: Bowel Sounds Present, Soft, Non Tender, Non-Distended, No Hepato- splenomegaly Extremities: No clubbing, No cyanosis, No edema Skin: No rashes, No breakdown Lymphatic: No Cervical, Supraclavicular, or Inguinal Adenopathy Neurological: Motor Exam 5/5 strength throughout, - - Minimal right facial droop , other cranial nerves are intact. Psych/Mental Status: Normal Affect, Appropriate, Alert and oriented to time, place, person, mood and affect Vital Signs Temp Pulse Resp BP Pulse Ox 98.6 F 85 16 127/71 H 98 10/04/17 06:15 10/04/17 06:59 10/04/17 06:15 10/04/17 06:15 10/04/17 06:15 Oxygen Delivery Method Room Air Weight: 215 lb 6.266 oz Body Mass Index (BMI) 30.0 Intake and Output for Last 24 Hours 10/02/17 10/03/17 10/04/17 23:59 23:59 23:59 Intake Total 487 / 487 697 / 697 Balance 487 / 487 697 / 697 Laboratory Tests Past 24 Hrs 10/03/17 10/04/17 10/04/17 06:25 06:00 06:00 WBC 5.4 RBC 4.50 L Hgb 13.3 Hct 38.9 L MCV 86.4 MCH 29.6 MCHC 34.2 RDW 13.2 RDW Differential 40.7 Plt Count 190 MPV 9.7 Immature Gran % (Auto) 0.400 Neut % (Auto) 55.3 Lymph % (Auto) 31.8 Kay % (Auto) 7.9 Eos % (Auto) 3.9 Baso % (Auto) 0.7 Absolute Neuts (auto) 3.0 Absolute Lymphs (auto) 1.73 Total Counted Not Reportable Sodium 137 Potassium 4.4 Chloride 105 Carbon Dioxide 24.0 Anion Gap 8 BUN 19 H Creatinine 1.30 Estim Creat Clear Calc 56.31 Est GFR (MDRD) Af Amer 70 Est GFR (MDRD) Non-Af 58 L BUN/Creatinine Ratio 14.6 Glucose 245 H Hemoglobin A1c 10.6 H Calcium 8.5 POC Glucose 10/04/17 10/03/17 10/03/17 06:48 20:53 17:14 POC Glucose 250 H 246 H 236 H 10/03/17 12:36 POC Glucose 266 H Medical Necessity - Tobacco Use Smoking Status: Former smoker Tobacco Use: Non-smoker Assessment/Plan All Active Problems Stroke-like symptoms (Acute) This is a 72 years old male patient admitted directly from outside hospital for symptoms of right facial droop, right cheek numbness, difficulty swallowing and imbalance and he was admitted for evaluation for acute stroke. #1 Acute right medullary infarction: With resultant minimal right facial droop/ right cheek numbness and dysphagia. MRI of the brain revealed acute right medullary infarction. MRA of the head and neck revealed no hemodynamically significant vascular disease or stenosis. 2D echocardiogram revealed ejection fraction 65%, stage I diastolic dysfunction and bubble contrast study negative for mbztx-du-apqu shunt. Patient is on Plavix and Lipitor. Blood pressure under control. Neurology consulted. Plan for placement to intermediate facility versus rehabilitation. #2 dysphagia: Secondary to above. Patient was seen by speech therapy, on soft mechanical diet and regular temp liquid. #3 hypertension: Blood pressure stabilized. He is on lisinopril. #4 type 2 diabetes mellitus: Blood sugar has been in 200-300s. He is on Lantus , sliding scale, on glipizide as well. Metformin held. Plan to change Lantus to Levemir 8 units twice daily. #5 hyperlipidemia: Continue Lipitor. #6 benign prostatic hypertrophy: Continue Cardura. #7 DVT prophylaxis: Subcu Lovenox. This note was generated with [employer] software. It may contain incorrect words, spelling, and punctuation that were not noted in checking the note before signing.
[2017-10-04] MEDS: Insulin Lispro 100 UNIT/ML INSULN.PEN SQ ×4 (08:04→21:34)
[2017-10-04] MEDS: Doxazosin 1 MG Tablet 2 MG PO (08:05)
[2017-10-04] MEDS: Lisinopril 5 MG Tablet PO (08:05)
[2017-10-04] MEDS: glipiZIDE 5 MG Tablet PO (08:05)
[2017-10-04] MEDS: Clopidogrel Bisulfate 75 MG Tablet PO (08:11)
[2017-10-04] MEDS: Docusate Sodium 100 MG Capsule PO (08:11)
--- NOTE | 2017-10-04 08:50 | CASEMGMT ---
SW spoke w/Monalisa in rehab, she states pt is appropriate for rehab, they will start precert this morning. SW faxed pt's insurance cards to rehab. KD will continue to follow. VIGNESH Azul, REMNANT SORTER
--- NOTE | 2017-10-04 11:29 | CASEMGMT ---
SW spoke w/Rosa Elena, pt's primary insurance is [employer], [employer] is secondary. Rosa Elena states if pt is denied rehab, [facility] would be able to take him if pt would like to do this. SW spoke w/pt in the room, explained that [employer] is primary and they often do not approve rehab for pts. SW inquired w/pt about a second option if rehab is denied. Pt is agreeable to referral to [facility], SW explained that TCU has a bed and can take pt if rehab is denied by insurance. Pt states understanding. SW called Rosa Elena, let her know pt is agreeable to TCU if rehab is denied. KD will continue to follow. VIGNESH Azul, LEGAL CASHIER
[2017-10-04 13:06] LABS: Bedside Glucose 318 mg/dL (70-110)
[2017-10-04 17:26] LABS: Bedside Glucose 278 mg/dL (70-110)
[2017-10-04] MEDS: Atorvastatin Calcium 80 MG Tablet PO (21:31)
[2017-10-04 23:41] LABS: Bedside Glucose 308 mg/dL (70-110)
[2017-10-05] VITALS (10 sets, daily range): BP systolic 111–149; BP diastolic 65–76; PULSE 79–109; RESP 16–18; TEMP 36.6–37; O2SAT 94–96
[2017-10-05] MEDS: Heparin Injection (Vial) 5,000 UNIT/ML VIAL 5000 UNIT SC ×2 (05:09→14:43)
[2017-10-05 07:05] LABS: Bedside Glucose 309 mg/dL (70-110)
[2017-10-05] MEDS: Insulin Lispro 100 UNIT/ML INSULN.PEN SQ ×2 (08:03→11:38)
[2017-10-05] MEDS: glipiZIDE 5 MG Tablet PO (08:09)
[2017-10-05] MEDS: Clopidogrel Bisulfate 75 MG Tablet PO (09:48)
[2017-10-05] MEDS: Docusate Sodium 100 MG Capsule PO (09:48)
[2017-10-05] MEDS: Lisinopril 5 MG Tablet PO (09:48)
[2017-10-05 11:46] LABS: Bedside Glucose 449 mg/dL (70-110)
[2017-10-05] MEDS: Doxazosin 1 MG Tablet 2 MG PO (11:51)
--- NOTE | 2017-10-05 13:11 | PCM.PROGNOTE ---
Patient Problems: Active and Suspected Problems Stroke-like symptoms (Acute) Subjective: Chief complaint: Follow-up after admission for acute right medullary infarction. Patient seen and examined. No acute events overnight. No new complaints. Vital signs are stable. - Physical Exam General: Alert, Oriented x3, Cooperative, No apparent distress HEENT: Atraumatic, PERRLA, EOMI, Normocephalic Oral: Moist Mucosa, No Gingival or Mucosal Lesions/ Ulcerations Neck: Supple, No JVD, Negative Carotid Bruits, Trachea Midline, Thyroid Normal Size and Texture Lungs: Clear to auscultation, Normal air movement, No rhonchi, No wheeze, No rales Cardiovascular: Regular rate, Regular Rhythm, Normal S1, Normal S2, No murmurs, PMI Normal Abdomen: Bowel Sounds Present, Soft, Non Tender, Non-Distended, No Hepato-splenomegaly Extremities: No clubbing, No cyanosis, No edema Skin: No rashes, No breakdown Lymphatic: No Cervical, Supraclavicular, or Inguinal Adenopathy Neurological: Motor Exam 5/5 strength throughout, - - Minimal right facial droop. Psych/Mental Status: Normal Affect, Appropriate, Alert and oriented to time, place, person, mood and affect Vital Signs Temp Pulse Resp BP Pulse Ox 98.1 F 100 18 118/73 94 10/05/17 11:50 10/05/17 11:50 10/05/17 11:50 10/05/17 11:50 10/05/17 11:50 Oxygen Delivery Method Room Air Weight: 215 lb 6.266 oz Body Mass Index (BMI) 30.0 Intake and Output for Last 24 Hours 10/03/17 10/04/17 10/05/17 23:59 23:59 23:59 Intake Total 487 / 487 747 / 747 Output Total 800 / 800 Balance 487 / 487 747 / 747 -800 / -800 POC Glucose 10/05/17 10/05/17 10/04/17 11:36 06:37 21:29 POC Glucose 449 H 309 H 308 H 10/04/17 16:54 POC Glucose 278 H Medical Necessity - Tobacco Use Smoking Status: Former smoker Tobacco Use: Non-smoker Assessment/Plan All Active Problems Stroke-like symptoms (Acute) This is a 72 years old male patient admitted directly from outside hospital for symptoms of right facial droop, right cheek numbness, difficulty swallowing and imbalance and he was admitted for evaluation for acute stroke. #1 Acute right medullary infarction: With resultant minimal right facial droop/right cheek numbness and dysphagia. MRI of the brain revealed acute right medullary infarction. MRA of the head and neck revealed no hemodynamically significant vascular disease or stenosis. 2D echocardiogram revealed ejection fraction 65%, stage I diastolic dysfunction and bubble contrast study negative for [id number] shunt. Patient is on Plavix and Lipitor. Blood pressure under control. Neurology consulted. Plan for placement to long-term facility versus rehabilitation. #2 dysphagia: Secondary to above. Patient was seen by speech therapy, on soft mechanical diet and nectar thick liquid. #3 hypertension: Blood pressure stabilized. He is on lisinopril. #4 type 2 diabetes mellitus: Blood sugar has been in 200-300s. He is on Lantus, sliding scale, on glipizide as well. Metformin held. Dose of Lantus increased to 14 units yesterday blood sugar still in the range of 300s-400s. Resume metformin, change sliding scale to high dosing. #5 hyperlipidemia: Continue Lipitor. #6 benign prostatic hypertrophy: Continue Cardura. #7 DVT prophylaxis: Subcu Lovenox. This note was generated with [employer] dictation software. It may contain incorrect words, spelling, and punctuation that were not noted in checking the note before signing.
--- NOTE | 2017-10-05 13:14 | PN_ITS ---
Patient Problems: Active and Suspected Problems Stroke-like symptoms (Acute) Subjective: Chief complaint: Follow-up after admission for acute right medullary infarction. Patient seen and examined. No acute events overnight. No new complaints. Vital signs are stable. - Physical Exam General: Alert, Oriented x3, Cooperative, No apparent distress HEENT: Atraumatic, PERRLA, EOMI, Normocephalic Oral: Moist Mucosa, No Gingival or Mucosal Lesions/ Ulcerations Neck: Supple, No JVD, Negative Carotid Bruits, Trachea Midline, Thyroid Normal Size and Texture Lungs: Clear to auscultation, Normal air movement, No rhonchi, No wheeze, No rales Cardiovascular: Regular rate, Regular Rhythm, Normal S1, Normal S2, No murmurs, PMI Normal Abdomen: Bowel Sounds Present, Soft, Non Tender, Non-Distended, No Hepato- splenomegaly Extremities: No clubbing, No cyanosis, No edema Skin: No rashes, No breakdown Lymphatic: No Cervical, Supraclavicular, or Inguinal Adenopathy Neurological: Motor Exam 5/5 strength throughout, - - Minimal right facial droop. Psych/Mental Status: Normal Affect, Appropriate, Alert and oriented to time, place, person, mood and affect Vital Signs Temp Pulse Resp BP Pulse Ox 98.1 F 100 18 118/73 94 10/05/17 11:50 10/05/17 11:50 10/05/17 11:50 10/05/17 11:50 10/05/17 11:50 Oxygen Delivery Method Room Air Weight: 215 lb 6.266 oz Body Mass Index (BMI) 30.0 Intake and Output for Last 24 Hours 10/03/17 10/04/17 10/05/17 23:59 23:59 23:59 Intake Total 487 / 487 747 / 747 Output Total 800 / 800 Balance 487 / 487 747 / 747 -800 / -800 POC Glucose 10/05/17 10/05/17 10/04/17 11:36 06:37 21:29 POC Glucose 449 H 309 H 308 H 10/04/17 16:54 POC Glucose 278 H Medical Necessity - Tobacco Use Smoking Status: Former smoker Tobacco Use: Non-smoker Assessment/Plan All Active Problems Stroke-like symptoms (Acute) This is a 72 years old male patient admitted directly from outside hospital for symptoms of right facial droop, right cheek numbness, difficulty swallowing and imbalance and he was admitted for evaluation for acute stroke. #1 Acute right medullary infarction: With resultant minimal right facial droop/ right cheek numbness and dysphagia. MRI of the brain revealed acute right medullary infarction. MRA of the head and neck revealed no hemodynamically significant vascular disease or stenosis. 2D echocardiogram revealed ejection fraction 65%, stage I diastolic dysfunction and bubble contrast study negative for [id number] shunt. Patient is on Plavix and Lipitor. Blood pressure under control. Neurology consulted. [facility] versus rehabilitation. #2 dysphagia: Secondary to above. Patient was seen by speech therapy, on soft mechanical diet and nectar thick liquid. #3 hypertension: Blood pressure stabilized. He is on lisinopril. #4 type 2 diabetes mellitus: Blood sugar has been in 200-300s. He is on Lantus , sliding scale, on glipizide as well. Metformin held. Dose of Lantus increased to 14 units yesterday blood sugar still in the range of 300s-400s. Resume metformin, change sliding scale to high dosing. #5 hyperlipidemia: Continue Lipitor. #6 benign prostatic hypertrophy: Continue Cardura. #7 DVT prophylaxis: Subcu Lovenox. This note was generated with [employer] dictation software. It may contain incorrect words, spelling, and punctuation that were not noted in checking the note before signing.
--- NOTE | 2017-10-05 13:26 | DCINST_ITS ---
- Discharge Diagnoses Current Active Problems: Current Active and Chronic Problems Stroke-like symptoms (Acute) You will use the following diet at home:: Calorie/Carbohydrate Controlled ( specify 1200, 1400, etc) - 1800 brandon, Cardiac Your food should be the consistency of: Regular Discharge Activity: Return to Normal Activity Weight Bearing Status: Weight bearing as tolerated Call your doctor if you observe: Fever of 101 or Higher, Shortness of breath, Dizziness, Fainting spells, Swelling in the ankles, Chest pain, Increased palpitations (irregular heartbeat), Uncontrolled pain Allergies/Adverse Reactions: Allergies No Known Allergies Allergy (Verified 10/02/17 21:22) Medications to take at Discharge Glipizide 5 mg PO DAILY 10/02/17 Lisinopril [Zestril] 5 mg PO DAILY 10/02/17 Metformin HCl 1,000 mg PO DAILY 10/02/17 Naproxen 500 mg PO DAILY 10/02/17 Terazosin HCl 2 mg PO DAILY 10/02/17 Atorvastatin Calcium [Lipitor] 80 mg PO QHS #90 tab 10/05/17 Clopidogrel Bisulfate [Plavix] 75 mg PO DAILY #90 tab 10/05/17 Insulin Glargine [Lantus SoloStar Pen] 14 units SC DAILY #1 pen 10/05/17 The following prescriptions were given: Atorvastatin Calcium [Lipitor] 80 mg PO QHS #90 tab Clopidogrel Bisulfate [Plavix] 75 mg PO DAILY #90 tab Insulin Glargine [Lantus SoloStar Pen] 14 units SC DAILY #1 pen Please follow up with your Primary Care Physician in: 2 weeks. Test Results: Test results from this visit will be discussed in further detail at your follow- up appointment, if applicable. Please Follow Up With: Hever Faye MD When: call his office.
--- NOTE | 2017-10-05 13:26 | PCM.DC.SUM ---
Discharge Date and Diagnosis - Problem List Patient Problems: Active and Suspected Problems Stroke-like symptoms (Acute) Date of Admission: 10/02/17 Date of Discharge: 10/05/17 - Primary Discharge Diagnosis Active and Suspected Problems #1 acute ischemic right medullary infarction. #2 dysphagia. #3 uncontrolled type 2 diabetes mellitus. - Secondary Discharge Diagnosis Chronic Problems Benign prostatic hyperplasia (Chronic) Hyperlipidemia (Chronic) Hypertension (Chronic) Type 2 diabetes mellitus (Chronic) Hospital Course and Treatment Imaging Results: Clinical Impression(s) from Imaging Studies Videofluoroscopic Swallow 10/03/17 14:00 IMPRESSION: No finding of increased risk for aspiration below the vocal cords. The swallow study findings were discussed with the patient by the speech pathologist at the conclusion of the examination. Please see speech pathology report for more information and recommendations. The procedure was performed by Bayron Jackson under the direct supervision of Dr. Richter. Electronically Signed: Carlton Richter, at 15:55 EDT Tel , Service support , Brain MRI 10/03/17 22:21 IMPRESSION: Acute right medullary infarction. N.B. : The above information has been verbally conveyed by Marina Gates MD to Shanna Rosado , [facility]- In-Patient RN, on 10/03/2017 10:49:52 (ET). Electronically Signed: Marina Gates MD at 10:52 EDT Tel , Service support , Head MRA 10/03/17 22:21 IMPRESSION: Normal MRA of the head Electronically Signed: Marina Gates MD at 10:21 EDT Tel , Service support , Neck MRA 10/03/17 22:21 IMPRESSION: Unremarkable bilateral cervical carotid and vertebral arteries. Electronically Signed: Marina Gates MD at 10:36 EDT Tel , Service support , Dr. Faey, neurology. Procedures: 2-D Echocardiogram, EKG Summary of Care Provided: The patient is a 72 year old M admitted because of right facial droop, right cheek numbness, difficulty swallowing and imbalance and he was found to have acute ischemic stroke of the right medulla. His MRI brain revealed acute right medullary infarction. MRA of the head and neck revealed no hemodynamically significant vascular disease or stenosis. 2D echocardiogram showed ejection fraction of 65%, stage I diastolic dysfunction and bubble contrast study that was negative for [id number] shunt. Patient developed this acute stroke while on aspirin and that is why he was started on Plavix and also treated with full dose of Lipitor. The only residual deficit is numbness on the right cheek and my dysphagia for which speech therapy evaluated the patient and recommended soft mechanical diet and nectar thick liquid. Patient's blood pressure has been stable throughout admission and was continued on lisinopril. His blood sugar has been uncontrolled. At home, he has been only on glipizide and metformin. Hemoglobin A1c was 10.6. He was started on Lantus insulin 14 units daily. Patient discharged to inpatient rehabilitation unit for physical medication therapy, discharged on Plavix and statins, started on Lantus insulin for uncontrolled type 2 diabetes mellitus, continued on glipizide and metformin, continued on lisinopril for hypertension, recommended follow-up with PCP in 2 weeks and follow-up with Dr. Faye according to his recommendation. Discharge Activity: Return to Normal Activity Weight Bearing Status: Weight bearing as tolerated Call your doctor if you observe: Fever of 101 or Higher, Shortness of breath, Dizziness, Fainting spells, Swelling in the ankles, Chest pain, Increased palpitations (irregular heartbeat), Uncontrolled pain Home Medications: Medications to take at Discharge Glipizide 5 mg PO DAILY 10/02/17 Lisinopril [Zestril] 5 mg PO DAILY 10/02/17 Metformin HCl 1,000 mg PO DAILY 10/02/17 Naproxen 500 mg PO DAILY 10/02/17 Terazosin HCl 2 mg PO DAILY 10/02/17 Atorvastatin Calcium [Lipitor] 80 mg PO QHS #90 tab 10/05/17 Clopidogrel Bisulfate [Plavix] 75 mg PO DAILY #90 tab 10/05/17 Insulin Glargine [Lantus SoloStar Pen] 14 units SC DAILY #1 pen 10/05/17 Following Prescrptions Were Given to Patient: Atorvastatin Calcium [Lipitor] 80 mg PO QHS #90 tab Clopidogrel Bisulfate [Plavix] 75 mg PO DAILY #90 tab Insulin Glargine [Lantus SoloStar Pen] 14 units SC DAILY #1 pen Please follow up with your Primary Care Physician in: 2 weeks. Please Follow Up With: Hever Faye MD When: call his office. Disposition: Inpt Rehab Unit/Facility Minutes spent on discharge:: 32 Patient Condition:: Stable Medical Necessity - Tobacco Use Smoking Status: Former smoker Tobacco Use: Non-smoker Meaningful Use Info Meaningful Use Diagnoses (Choose all that apply): Ischemic CVA - CVA Therapy Assessed for PT,OT and/or ST?: Yes - Ischemic Stroke Antithrombotic order at d/c?: Yes Dx of Atrial fib/flutter?: No Reason anticoagulant not ordered: Treatment not Indicated Statins at discharge?: Yes Primary Dx Acute Ischemic CVA?: Yes IV tPA ordered during stay?: No Reason IV t-PA not ordered: Treatment not Indicated Code Visit Inpatient E&M: 81939 Disch Hosp
--- NOTE | 2017-10-05 13:30 | DS.PCM_ITS ---
Discharge Date and Diagnosis - Problem List Patient Problems: Active and Suspected Problems Stroke-like symptoms (Acute) Date of Admission: 10/02/17 Date of Discharge: 10/05/17 - Primary Discharge Diagnosis Active and Suspected Problems #1 acute ischemic right medullary infarction. #2 dysphagia. #3 uncontrolled type 2 diabetes mellitus. - Secondary Discharge Diagnosis Chronic Problems Benign prostatic hyperplasia (Chronic) Hyperlipidemia (Chronic) Hypertension (Chronic) Type 2 diabetes mellitus (Chronic) Hospital Course and Treatment Imaging Results: Clinical Impression(s) from Imaging Studies Videofluoroscopic Swallow 10/03/17 14:00 IMPRESSION: No finding of increased risk for aspiration below the vocal cords. The swallow study findings were discussed with the patient by the speech pathologist at the conclusion of the examination. Please see speech pathology report for more information and recommendations. The procedure was performed by Bayron Jackson under the direct supervision of Dr. Richter. Electronically Signed: Carlton Richter, at 15:55 EDT Tel , Service support , Brain MRI 10/03/17 22:21 IMPRESSION: Acute right medullary infarction. N.B. : The above information has been verbally conveyed by Marina Gates MD to Shanna Rosado , [facility]- In-Patient RN, on 10/03/2017 10:49:52 (ET). Electronically Signed: Marina Gates MD at 10:52 EDT Tel , Service support , Head MRA 10/03/17 22:21 IMPRESSION: Normal MRA of the head Electronically Signed: Marina Gates MD at 10:21 EDT Tel , Service support , Neck MRA 10/03/17 22:21 IMPRESSION: Unremarkable bilateral cervical carotid and vertebral arteries. Electronically Signed: Marina Gates MD at 10:36 EDT Tel , Service support , Dr. Faye, neurology. Procedures: 2-D Echocardiogram, EKG Summary of Care Provided: The patient is a 72 year old M admitted because of right facial droop, right cheek numbness, difficulty swallowing and imbalance and he was found to have acute ischemic stroke of the right medulla. His MRI brain revealed acute right medullary infarction. MRA of the head and neck revealed no hemodynamically significant vascular disease or stenosis. 2D echocardiogram showed ejection fraction of 65%, stage I diastolic dysfunction and bubble contrast study that was negative for [id number] shunt. Patient developed this acute stroke while on aspirin and that is why he was started on Plavix and also treated with full dose of Lipitor. The only residual deficit is numbness on the right cheek and my dysphagia for which speech therapy evaluated the patient and recommended soft mechanical diet and nectar thick liquid. Patient's blood pressure has been stable throughout admission and was continued on lisinopril. His blood sugar has been uncontrolled. At home, he has been only on glipizide and metformin. Hemoglobin A1c was 10.6. He was started on Lantus insulin 14 units daily. Patient discharged to inpatient rehabilitation unit for physical medication therapy, discharged on Plavix and statins, started on Lantus insulin for uncontrolled type 2 diabetes mellitus, continued on glipizide and metformin , continued on lisinopril for hypertension, recommended follow-up with PCP in 2 weeks and follow-up with Dr. Faye according to his recommendation. Discharge Activity: Return to Normal Activity Weight Bearing Status: Weight bearing as tolerated Call your doctor if you observe: Fever of 101 or Higher, Shortness of breath, Dizziness, Fainting spells, Swelling in the ankles, Chest pain, Increased palpitations (irregular heartbeat), Uncontrolled pain Home Medications: Medications to take at Discharge Glipizide 5 mg PO DAILY 10/02/17 Lisinopril [Zestril] 5 mg PO DAILY 10/02/17 Metformin HCl 1,000 mg PO DAILY 10/02/17 Naproxen 500 mg PO DAILY 10/02/17 Terazosin HCl 2 mg PO DAILY 10/02/17 Atorvastatin Calcium [Lipitor] 80 mg PO QHS #90 tab 10/05/17 Clopidogrel Bisulfate [Plavix] 75 mg PO DAILY #90 tab 10/05/17 Insulin Glargine [Lantus SoloStar Pen] 14 units SC DAILY #1 pen 10/05/17 Following Prescrptions Were Given to Patient: Atorvastatin Calcium [Lipitor] 80 mg PO QHS #90 tab Clopidogrel Bisulfate [Plavix] 75 mg PO DAILY #90 tab Insulin Glargine [Lantus SoloStar Pen] 14 units SC DAILY #1 pen Please follow up with your Primary Care Physician in: 2 weeks. Please Follow Up With: Hever Faye MD When: call his office. Disposition: Inpt Rehab Unit/Facility Minutes spent on discharge:: 32 Patient Condition:: Stable Medical Necessity - Tobacco Use Smoking Status: Former smoker Tobacco Use: Non-smoker Meaningful Use Info Meaningful Use Diagnoses (Choose all that apply): Ischemic CVA - CVA Therapy Assessed for PT,OT and/or ST?: Yes - Ischemic Stroke Antithrombotic order at d/c?: Yes Dx of Atrial fib/flutter?: No Reason anticoagulant not ordered: Treatment not Indicated Statins at discharge?: Yes Primary Dx Acute Ischemic CVA?: Yes IV tPA ordered during stay?: No Reason IV t-PA not ordered: Treatment not Indicated Code Visit Inpatient E&M: 93659 Disch Hosp
--- NOTE | 2017-10-05 13:53 | CASEMGMT ---
Patient was approved for the rehab unit. SW notified patient and his son. RN and physician were notified. Plan: [facility] 4th floor rehab unit. Bhumika RODRIGUES
[2017-10-05 14:56] LABS: Bedside Glucose 347 mg/dL (70-110)
--- NOTE | 2017-10-05 16:16 | NURSING ---
10/05/17 1522 Gave report to JIMENA Abebe in Inpatient Rehab.
== END 2017-10-05 15:44 | DRG 66 ==
PROVIDERS: Admitting Provider Hospitalist; Visit Provider Hospitalist
DX: I63.9 Cerebral infarction, unspecified (principal); R13.10 Dysphagia, unspecified; R20.0 Anesthesia of skin; R29.810 Facial weakness; N40.0 Benign prostatic hyperplasia without lower urinary tract symptoms; E78.5 Hyperlipidemia, unspecified; I10 Essential (primary) hypertension; R26.89 Other abnormalities of gait and mobility; E11.65 Type 2 diabetes mellitus with hyperglycemia; G83.11 Monoplegia of lower limb affecting right dominant side; Z87.891 Personal history of nicotine dependence; Z79.84 Long term (current) use of oral hypoglycemic drugs
CPT/HCPCS: 36415; 70544; 70549; 70551; 74230; 80048; 80061; 82962; 83036; 84484; 85025; 92507; 92526; 92611; 93306; 97112; 97116; 97162; 97165; 97530; A9585; J7030; A4216

== ENCOUNTER 2017-10-05 16:22 | Inpatient (IN) | payer MEDICARE, BC, SELFPAY ==
[2017-10-05 16:29] VITALS: BP 135/77; PULSE 99; RESP 17; TEMP 36.6; O2SAT 97; BMI 30.7; BMI 30.8
--- NOTE | 2017-10-05 16:36 | NURSING ---
Aware he is fall risk and must ask for staff assist and verbalized understanding.
[2017-10-05 16:46] LABS: Bedside Glucose 323 mg/dL (70-110)
[2017-10-05] MEDS: Insulin Lispro 100 UNIT/ML INSULN.PEN SC ×2 (17:49→22:04)
[2017-10-05 18:55] VITALS: O2SAT 98
[2017-10-05 20:25] VITALS: BP 119/71; PULSE 89; RESP 16; TEMP 36.5; O2SAT 96
[2017-10-05 22:00] VITALS: RESP 15
[2017-10-05] MEDS: Senna/Docusate Sodium 1 Tablet 2 TABLET PO (22:02)
[2017-10-05] MEDS: Atorvastatin Calcium 80 MG Tablet PO (22:02)
[2017-10-05 22:05] LABS: Bedside Glucose 276 mg/dL (70-110)
[2017-10-06] MEDS: Enoxaparin 40 MG/0.4 ML Syringe SC (06:52)
[2017-10-06 06:56] LABS: Bedside Glucose 276 mg/dL (70-110)
[2017-10-06 07:00] VITALS: O2SAT 99
[2017-10-06 07:15] VITALS: BP 154/78; PULSE 89; RESP 18; TEMP 36.4; O2SAT 95
[2017-10-06] MEDS: Clopidogrel Bisulfate 75 MG Tablet PO (07:47)
[2017-10-06] MEDS: glipiZIDE 5 MG Tablet PO (07:47)
[2017-10-06] MEDS: Insulin Lispro 100 UNIT/ML INSULN.PEN SC ×5 (07:47→21:13)
[2017-10-06] MEDS: Naproxen 500 MG Tablet PO (07:47)
[2017-10-06] MEDS: metFORMIN HCl 1,000 MG Tablet 1000 MG PO (07:47)
[2017-10-06] MEDS: Lisinopril 5 MG Tablet PO (07:47)
[2017-10-06] MEDS: Senna/Docusate Sodium 1 Tablet 2 TABLET PO ×2 (07:48→21:16)
[2017-10-06] MEDS: Doxazosin 1 MG Tablet 2 MG PO (07:48)
[2017-10-06 07:56] LABS: Hematocrit 39.5 % (40-54); Mean Corp Hgb Conc 35.4 g/gl (32-36); Mean Corpuscular Volume 84.6 fL (80-94); Mean Platelet Vol. 9.5 fl (6.2-12.0); Platelet Count 191 K/mm3 (150-450); RBC Distribution Width CV 12.9 % (11.6-14.6); RBC Distribution Width SD 38.9 fl (35.1-43.9); Red Blood Count 4.67 M/mm3 (4.6-6.2); White Blood Count 6.3 K/mm3 (4.4-11.0)
[2017-10-06 08:12] LABS: Scan Indicated on CBC? Y/N NO
[2017-10-06 08:24] LABS: Anion Gap 12 (5-15); BUN 21 mg/dL (7-18); BUN/Creat Ratio 15.3 RATIO (10-20); Chloride 102 mmol/L (98-107); Creatinine, Serum 1.37 mg/dL (0.70-1.30); EST Glomerular Filtration Rate 55 mL/min (>60); Est Glom Filt Rate - Afr Amer 66 mL/min (>60); Glucose 357 mg/dL (74-106); Potassium 4.5 mmol/L (3.5-5.1); Sodium Level 137 mmol/L (136-145)
[2017-10-06 09:54] VITALS: BP 127/79; PULSE 97
--- NOTE | 2017-10-06 10:06 | CT_ITS ---
STUDY: CT BRAIN WITHOUT CONTRAST REASON FOR EXAM: Male, 72 years old. Blurred vision right eye, CVA 10/03/2017 RADIATION DOSAGE (If Supplied By Facility): CTDIvol = ( 44.99 ) mGy, DLP = ( 796.11 ) mGycm TECHNIQUE: Transaxial CT imaging of the brain was performed without administration of intravenous contrast material. Sagittal and coronal reconstructed images are provided and reviewed. Individualized dose optimization techniques were used for this CT. COMPARISON: MRI 10/03/2017 FINDINGS: Normal soft tissue structures. Normal calvarium. Normal size ventricles and extra-axial spaces for the patient's age. Normal white matter tracts of the cerebral hemispheres. Normal basal ganglia and thalami. There is focal low-attenuation within the right side of the medulla consistent with recent infarct. This is seen on axial image 8. Normal cerebellum. There is no intracranial hemorrhage. Normal visualized paranasal sinuses. CT/Brain/Head without Contrast IMPRESSION: Small right-sided medullary infarct. No additional abnormality. No hemorrhage. Electronically Signed: Beltran Dumont DO at 10:42 EDT Tel , Service support ,
--- NOTE | 2017-10-06 10:07 | NURSING ---
patient voiced that he started to have blurred vision to right eye, new per patient. bilateral pupils equal and reactive to light. right cheek remains to have numbness. right upper eyelid remains to slightly drooped, not new since infarct. mild headache to right side of temporal region. a/o x3. denies dizziness, lightheadedness, chest pain or tightness, or sob. dr. valdivia notified, new order stat CT without contrast.
[2017-10-06 11:13] VITALS: BMI 30.7
[2017-10-06 11:40] LABS: Bedside Glucose 335 mg/dL (70-110)
--- NOTE | 2017-10-06 14:10 | NURSING ---
dr forbes aware of lab levels and glucose levels. new orders received.
--- NOTE | 2017-10-06 14:16 | PCM.PROGNOTE ---
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 Patient seen and examined. This morning, he had an episode of blurry vision in the right eye. CT scan brain without contrast done this morning and revealed small right side medullary infarct, no new findings. At this time, patient reported that his vision on the right eye is back to normal. He is still complaining of numbness on the right cheek. Walking is improving. His vital signs are stable. - Physical Exam General: Alert, Oriented x3, Cooperative, No apparent distress HEENT: Atraumatic, PERRLA, EOMI, Normocephalic Oral: Moist Mucosa, No Gingival or Mucosal Lesions/ Ulcerations Neck: Supple, No JVD, Negative Carotid Bruits, Trachea Midline, Thyroid Normal Size and Texture Lungs: Clear to auscultation, Normal air movement, No rhonchi, No wheeze, No rales Cardiovascular: Regular rate, Regular Rhythm, Normal S1, Normal S2, No murmurs, PMI Normal Abdomen: Bowel Sounds Present, Soft, Non Tender, Non-Distended, No Hepato-splenomegaly Extremities: No clubbing, No cyanosis, No edema Skin: No rashes, No breakdown Lymphatic: No Cervical, Supraclavicular, or Inguinal Adenopathy Neurological: Motor Exam 5/5 strength throughout, - - Minimal right facial droop, other cranial nerves are intact. Psych/Mental Status: Normal Affect, Appropriate, Alert and oriented to time, place, person, mood and affect Vital Signs Temp Pulse Resp BP Pulse Ox 97.6 F L 97 18 127/79 H 95 10/06/17 07:15 10/06/17 09:54 10/06/17 07:15 10/06/17 09:54 10/06/17 07:15 Oxygen Delivery Method Room Air Weight: 214 lb 8.156 oz Body Mass Index (BMI) 30.7 Intake and Output for Last 24 Hours 10/04/17 10/05/17 10/06/17 23:59 23:59 23:59 Intake Total 460 / 460 Output Total 1400 / 1400 Balance -940 / -940 Laboratory Tests Past 24 Hrs 10/06/17 10/06/17 07:48 07:48 WBC 6.3 RBC 4.67 Hgb 14.0 Hct 39.5 L MCV 84.6 MCH 30.0 MCHC 35.4 RDW 12.9 RDW Differential 38.9 Plt Count 191 MPV 9.5 Sodium 137 Potassium 4.5 Chloride 102 Carbon Dioxide 23.0 Anion Gap 12 BUN 21 H Creatinine 1.37 H Estim Creat Clear Calc 51.80 Est GFR (MDRD) Af Amer 66 Est GFR (MDRD) Non-Af 55 L BUN/Creatinine Ratio 15.3 Glucose 357 H Calcium 9.0 POC Glucose 10/06/17 10/06/17 10/05/17 11:36 06:51 22:00 POC Glucose 335 H 276 H 276 H 10/05/17 16:35 POC Glucose 323 H Medical Necessity - Tobacco Use Smoking Status: Former smoker Assessment/Plan All Active Problems Stroke-like symptoms (Acute) This is a 72 years old male patient admitted directly from outside hospital for symptoms of right facial droop, right cheek numbness, difficulty swallowing and 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 #1 Acute right medullary infarction: With resultant minimal right facial droop/right cheek numbness and dysphagia. He is on Plavix and statins. His vital signs are stable, blood pressure under control. This morning, he had an episode of double vision on the right eye for which CT scan brain done and revealed the small right medullary infarct, no new acute findings. Stroke workup that was done in the floor reviewed as below. CBC and BMP from today reviewed, remarkable for creatinine of 1.37 which has been the same in the floor. MRI of the brain revealed acute right medullary infarction. MRA of the head and neck revealed no hemodynamically significant vascular disease or stenosis. 2D echocardiogram revealed ejection fraction 65%, stage I diastolic dysfunction and bubble contrast study negative for risue-sy-telw shunt. Plan to continue PT OT according to rehab team, encourage oral intake, repeat BMP on Sunday.. #2 dysphagia: Secondary to above. Patient was seen by speech therapy, on soft mechanical diet and nectar thick liquid. Plan to continue speech therapy. #3 hypertension: Blood pressure stabilized. He is on lisinopril. #4 type 2 diabetes mellitus, uncontrolled: His hemoglobin A1c was 10.9. He was continued on glipizide and metformin and started newly on Lantus. His blood sugar still in the range of 200-300. Patient mentioned that his blood sugar usually at home in the 250s and sometimes up to 300. Plan: Continue Lantus, glipizide, metformin, start pre-meal Humalog 3 times daily. #5 hyperlipidemia: Continue Lipitor. #6 benign prostatic hypertrophy: Continue Cardura. #7 DVT prophylaxis: Subcu Lovenox. This note was generated with i-Nalysisation software. It may contain incorrect words, spelling, and punctuation that were not noted in checking the note before signing. Code Visit Inpatient E&M: 84677 Subs Hosp L2
--- NOTE | 2017-10-06 14:22 | PN_ITS ---
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 Patient seen and examined. This morning, he had an episode of blurry vision in the right eye. CT scan brain without contrast done this morning and revealed small right side medullary infarct, no new findings. At this time, patient reported that his vision on the right eye is back to normal. He is still complaining of numbness on the right cheek. Walking is improving. His vital signs are stable. - Physical Exam General: Alert, Oriented x3, Cooperative, No apparent distress HEENT: Atraumatic, PERRLA, EOMI, Normocephalic Oral: Moist Mucosa, No Gingival or Mucosal Lesions/ Ulcerations Neck: Supple, No JVD, Negative Carotid Bruits, Trachea Midline, Thyroid Normal Size and Texture Lungs: Clear to auscultation, Normal air movement, No rhonchi, No wheeze, No rales Cardiovascular: Regular rate, Regular Rhythm, Normal S1, Normal S2, No murmurs, PMI Normal Abdomen: Bowel Sounds Present, Soft, Non Tender, Non-Distended, No Hepato- splenomegaly Extremities: No clubbing, No cyanosis, No edema Skin: No rashes, No breakdown Lymphatic: No Cervical, Supraclavicular, or Inguinal Adenopathy Neurological: Motor Exam 5/5 strength throughout, - - Minimal right facial droop , other cranial nerves are intact. Psych/Mental Status: Normal Affect, Appropriate, Alert and oriented to time, place, person, mood and affect Vital Signs Temp Pulse Resp BP Pulse Ox 97.6 F L 97 18 127/79 H 95 10/06/17 07:15 10/06/17 09:54 10/06/17 07:15 10/06/17 09:54 10/06/17 07:15 Oxygen Delivery Method Room Air Weight: 214 lb 8.156 oz Body Mass Index (BMI) 30.7 Intake and Output for Last 24 Hours 10/04/17 10/05/17 10/06/17 23:59 23:59 23:59 Intake Total 460 / 460 Output Total 1400 / 1400 Balance -940 / -940 Laboratory Tests Past 24 Hrs 10/06/17 10/06/17 07:48 07:48 WBC 6.3 RBC 4.67 Hgb 14.0 Hct 39.5 L MCV 84.6 MCH 30.0 MCHC 35.4 RDW 12.9 RDW Differential 38.9 Plt Count 191 MPV 9.5 Sodium 137 Potassium 4.5 Chloride 102 Carbon Dioxide 23.0 Anion Gap 12 BUN 21 H Creatinine 1.37 H Estim Creat Clear Calc 51.80 Est GFR (MDRD) Af Amer 66 Est GFR (MDRD) Non-Af 55 L BUN/Creatinine Ratio 15.3 Glucose 357 H Calcium 9.0 POC Glucose 10/06/17 10/06/17 10/05/17 11:36 06:51 22:00 POC Glucose 335 H 276 H 276 H 10/05/17 16:35 POC Glucose 323 H Medical Necessity - Tobacco Use Smoking Status: Former smoker Assessment/Plan All Active Problems Stroke-like symptoms (Acute) This is a 72 years old male patient admitted directly from outside hospital for symptoms of right facial droop, right cheek numbness, difficulty swallowing and 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 #1 Acute right medullary infarction: With resultant minimal right facial droop/ right cheek numbness and dysphagia. He is on Plavix and statins. His vital signs are stable, blood pressure under control. This morning, he had an episode of double vision on the right eye for which CT scan brain done and revealed the small right medullary infarct, no new acute findings. Stroke workup that was done in the floor reviewed as below. CBC and BMP from today reviewed, remarkable for creatinine of 1.37 which has been the same in the floor. MRI of the brain revealed acute right medullary infarction. MRA of the head and neck revealed no hemodynamically significant vascular disease or stenosis. 2D echocardiogram revealed ejection fraction 65%, stage I diastolic dysfunction and bubble contrast study negative for hhyee-hs-[id number] shunt. Plan to continue PT OT according to rehab team, encourage oral intake, repeat BMP on Sunday.. #2 dysphagia: Secondary to above. Patient was seen by speech therapy, on soft mechanical diet and nectar thick liquid. Plan to continue speech therapy. #3 hypertension: Blood pressure stabilized. He is on lisinopril. #4 type 2 diabetes mellitus, uncontrolled: His hemoglobin A1c was 10.9. He was continued on glipizide and metformin and started newly on Lantus. His blood sugar still in the range of 200-300. Patient mentioned that his blood sugar usually at home in the 250s and sometimes up to 300. Plan: Continue Lantus, glipizide, metformin, start pre-meal Humalog 3 times daily. #5 hyperlipidemia: Continue Lipitor. #6 benign prostatic hypertrophy: Continue Cardura. #7 DVT prophylaxis: Subcu Lovenox. This note was generated with [employer] software. It may contain incorrect words, spelling, and punctuation that were not noted in checking the note before signing. Code Visit Inpatient E&M: 31489 Subs Hosp L2
--- NOTE | 2017-10-06 14:32 | NURSING ---
patient denied any further blurred vision.
[2017-10-06 16:36] LABS: Bedside Glucose 172 mg/dL (70-110)
[2017-10-06 19:18] VITALS: BP 120/67; PULSE 101; RESP 18; TEMP 36.5; O2SAT 93
[2017-10-06 21:15] VITALS: BMI 30.7
[2017-10-06 21:15] LABS: Bedside Glucose 259 mg/dL (70-110)
[2017-10-06] MEDS: Atorvastatin Calcium 80 MG Tablet PO (21:15)
[2017-10-07] MEDS: Enoxaparin 40 MG/0.4 ML Syringe SC (05:49)
[2017-10-07 06:35] LABS: Bedside Glucose 288 mg/dL (70-110)
[2017-10-07 07:06] VITALS: O2SAT 95
[2017-10-07] MEDS: glipiZIDE 5 MG Tablet PO (07:45)
[2017-10-07] MEDS: Doxazosin 1 MG Tablet 2 MG PO (07:45)
[2017-10-07] MEDS: Naproxen 500 MG Tablet PO (07:45)
[2017-10-07] MEDS: Clopidogrel Bisulfate 75 MG Tablet PO (07:45)
[2017-10-07] MEDS: metFORMIN HCl 1,000 MG Tablet 1000 MG PO (07:46)
[2017-10-07] MEDS: Insulin Lispro 100 UNIT/ML INSULN.PEN SC ×7 (07:47→21:24)
[2017-10-07 09:59] VITALS: BP 124/76; PULSE 56; RESP 16; TEMP 36.8; O2SAT 97
[2017-10-07] MEDS: Lisinopril 5 MG Tablet PO (11:16)
[2017-10-07] MEDS: Senna/Docusate Sodium 1 Tablet 2 TABLET PO (11:17)
[2017-10-07 11:26] LABS: Bedside Glucose 282 mg/dL (70-110)
[2017-10-07 12:16] VITALS: BMI 30.7
--- NOTE | 2017-10-07 13:31 | PCM.HP.STD ---
History of Present Illness Date of Admission: 10/07/17 Chief Complaint: Debility The patient is a 72 year old handed white male who is admitted to the rehab unit after hospitalization in the PCU because of a right lateral medullary syndrome which began initially associated with nausea vomiting right-sided weakness and facial droop. His symptoms have improved. He lives alone in his own house, goal of rehab is yazdanism of prior level functional independence. He says his nausea has improved, he has no GI or complaints and his swallowing has improved but he continues to have right sided paresthesias. Past Medical History Past Medical History (Chronic Problems): Chronic Problems Benign prostatic hyperplasia (Chronic) Hyperlipidemia (Chronic) Hypertension (Chronic) Type 2 diabetes mellitus (Chronic) Allergies No Known Allergies Allergy (Verified 10/02/17 21:22) Home Medications: Ambulatory Orders Medication Instructions Recorded Glipizide 5 mg PO DAILY 10/02/17 Lisinopril [Zestril] 5 mg PO DAILY 10/02/17 Metformin HCl 1,000 mg PO DAILY 10/02/17 Naproxen 500 mg PO DAILY 10/02/17 Terazosin HCl 2 mg PO DAILY 10/02/17 Atorvastatin Calcium [Lipitor] 80 mg PO QHS 10/05/17 Clopidogrel Bisulfate [Plavix] 75 mg PO DAILY 10/05/17 Insulin Glargine [Lantus SoloStar 14 units SC DAILY 10/05/17 Pen] Surgical History: no surgical history Smoking Status: Former smoker - *Family History Paternal History Items: Cancer Maternal History Items: Diabetes Review of Systems Constitutional: Denies: Chills, Fever, Weight Change HEENT: Denies: Head Aches, Sinus Congestion, Sinus Drainage Cardiovascular: Denies: Chest Pain, Palpitations Respiratory: Denies: Cough, Shortness of breath at rest, Sputum production Gastrointestinal: Denies: Abdominal Pain, Nausea, Vomiting Genitourinary: Denies: Dysuria Musculoskeletal: Denies: Joint Pain, Joint Tenderness Skin: Denies: Rash, Wounds Neurological: Denies: Numbness, Tingling, Focal weakness Psychiatric: Denies: Anxiety, Depression, Homicidal Ideations, Suicidal Ideations Hematologic/ Lymphatic: Denies: Easy Bruising, Easy Bleeding VTE Information - Inpt Only VTE Present on Admission: Yes VTE Pharm Prophylaxis ordered?: Yes - Physical Exam General: Alert, Oriented x3, Cooperative, No apparent distress Cardiovascular: Regular rate, Regular Rhythm Abdomen: Bowel Sounds Present Extremities: No Calf Tenderness Musculoskeletal: No Tenderness to Palpation of Joints or Extremities Neurological: - - Neurologic examination he has mild right-sided ptosis and right upper and right lower extremity discoordination with intact strength and sensation although he does report some subjective sensory abnormalities. Vital Signs Temp Pulse Resp BP Pulse Ox 36.8 C 56 L 16 124/76 H 97 10/07/17 09:59 10/07/17 09:59 10/07/17 09:59 10/07/17 09:59 10/07/17 09:59 Oxygen Delivery Method Room Air Weight: 97.3 kg Body Mass Index (BMI) 30.7 Intake and Output for Last 24 Hours 10/05/17 10/06/17 10/07/17 23:59 23:59 23:59 Intake Total 460 / 460 480 / 480 Output Total 1400 / 1400 Balance -940 / -940 480 / 480 POC Glucose 10/07/17 10/07/17 10/06/17 11:12 06:24 21:11 POC Glucose 282 H 288 H 259 H 10/06/17 16:31 POC Glucose 172 H Current Medications Generic Name Dose Route Start Last Admin Trade Name Freq PRN Reason Stop Dose Admin Atorvastatin Calcium 80 mg 10/05/17 22:00 10/06/17 21:15 Lipitor PO 80 mg QHS TEETEE Administration Bisacodyl 10 mg 10/05/17 16:33 Dulcolax RECTAL .PRN X 1 PRN Constipation Clopidogrel Bisulfate 75 mg 10/06/17 10:00 10/07/17 07:45 Plavix PO 75 mg DAILY TEETEE Administration Doxazosin Mesylate 2 mg 10/06/17 10:00 10/07/17 07:45 Cardura PO 2 mg DAILY TEETEE Administration Enoxaparin Sodium 40 mg 10/06/17 06:00 10/07/17 05:49 Lovenox SC 40 mg DAILY@0600 [facility] Administration Glipizide 5 mg 10/06/17 08:00 10/07/17 07:45 Glucotrol PO 5 mg DAILY@0800 TEETEE Administration Insulin Glargine 14 units 10/06/17 10:00 10/07/17 11:16 Lantus (Bkc) SC 14 u DAILY TEETEE Administration Insulin Human Lispro 0 unit 10/05/17 16:32 10/07/17 11:13 Humalog Kwikpen ([facility]) SC 9 u ACHS TEETEE Administration Protocol Insulin Human Lispro 4 unit 10/06/17 16:00 10/07/17 11:13 Humalog Kwikpen ([facility]) SC 4 u TIDAC TEETEE Administration Lisinopril 5 mg 10/06/17 10:00 10/07/17 11:16 Zestril PO 5 mg DAILY TEETEE Administration Magnesium Hydroxide 30 ml 10/05/17 16:33 Milk Of Magnesia PO .PRN X 1 PRN Constipation Metformin HCl 1,000 mg 10/06/17 08:00 10/07/17 07:46 Glucophage PO 1,000 mg DAILY@0800 TEETEE Administration Naproxen 500 mg 10/06/17 08:00 10/07/17 07:45 Naprosyn PO 500 mg DAILY@0800 [facility] Administration Senna/Docusate Sodium 2 tablet 10/05/17 22:00 10/07/17 11:17 Senokot-S, Denisa-Colace PO 1 tablet BID TEETEE Administration Assessment/Plan All Active Problems Stroke-like symptoms (Acute) 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 Goal of rehab is yazdanism of prior level of functional independence. Sickle therapy for gait and balance Occupational Therapy for ADLs Blood pressure control Sliding scale insulin DVT prophylaxis: Lovenox Bowel protocol As needed analgesics Stroke prevention: Statin therapy, blood pressure control, Plavix
--- NOTE | 2017-10-07 13:35 | HP.PCM_ITS ---
History of Present Illness Date of Admission: 10/07/17 Chief Complaint: Debility The patient is a 72 year old handed white male who is admitted to the rehab unit after hospitalization in the PCU because of a right lateral medullary syndrome which began initially associated with nausea vomiting right-sided weakness and facial droop. His symptoms have improved. He lives alone in his own house, goal of rehab is amish of prior level functional independence. He says his nausea has improved, he has no GI or complaints and his swallowing has improved but he continues to have right sided paresthesias. Past Medical History Past Medical History (Chronic Problems): Chronic Problems Benign prostatic hyperplasia (Chronic) Hyperlipidemia (Chronic) Hypertension (Chronic) Type 2 diabetes mellitus (Chronic) Allergies No Known Allergies Allergy (Verified 10/02/17 21:22) Home Medications: Ambulatory Orders Medication Instructions Recorded Glipizide 5 mg PO DAILY 10/02/17 Lisinopril [Zestril] 5 mg PO DAILY 10/02/17 Metformin HCl 1,000 mg PO DAILY 10/02/17 Naproxen 500 mg PO DAILY 10/02/17 Terazosin HCl 2 mg PO DAILY 10/02/17 Atorvastatin Calcium [Lipitor] 80 mg PO QHS 10/05/17 Clopidogrel Bisulfate [Plavix] 75 mg PO DAILY 10/05/17 Insulin Glargine [Lantus SoloStar 14 units SC DAILY 10/05/17 Pen] Surgical History: no surgical history Smoking Status: Former smoker - *Family History Paternal History Items: Cancer Maternal History Items: Diabetes Review of Systems Constitutional: Denies: Chills, Fever, Weight Change HEENT: Denies: Head Aches, Sinus Congestion, Sinus Drainage Cardiovascular: Denies: Chest Pain, Palpitations Respiratory: Denies: Cough, Shortness of breath at rest, Sputum production Gastrointestinal: Denies: Abdominal Pain, Nausea, Vomiting Genitourinary: Denies: Dysuria Musculoskeletal: Denies: Joint Pain, Joint Tenderness Skin: Denies: Rash, Wounds Neurological: Denies: Numbness, Tingling, Focal weakness Psychiatric: Denies: Anxiety, Depression, Homicidal Ideations, Suicidal Ideations Hematologic/ Lymphatic: Denies: Easy Bruising, Easy Bleeding VTE Information - Inpt Only VTE Present on Admission: Yes VTE Pharm Prophylaxis ordered?: Yes - Physical Exam General: Alert, Oriented x3, Cooperative, No apparent distress Cardiovascular: Regular rate, Regular Rhythm Abdomen: Bowel Sounds Present Extremities: No Calf Tenderness Musculoskeletal: No Tenderness to Palpation of Joints or Extremities Neurological: - - Neurologic examination he has mild right-sided ptosis and right upper and right lower extremity discoordination with intact strength and sensation although he does report some subjective sensory abnormalities. Vital Signs Temp Pulse Resp BP Pulse Ox 36.8 C 56 L 16 124/76 H 97 10/07/17 09:59 10/07/17 09:59 10/07/17 09:59 10/07/17 09:59 10/07/17 09:59 Oxygen Delivery Method Room Air Weight: 97.3 kg Body Mass Index (BMI) 30.7 Intake and Output for Last 24 Hours 10/05/17 10/06/17 10/07/17 23:59 23:59 23:59 Intake Total 460 / 460 480 / 480 Output Total 1400 / 1400 Balance -940 / -940 480 / 480 POC Glucose 10/07/17 10/07/17 10/06/17 11:12 06:24 21:11 POC Glucose 282 H 288 H 259 H 10/06/17 16:31 POC Glucose 172 H Current Medications Generic Name Dose Route Start Last Admin Trade Name Freq PRN Reason Stop Dose Admin Atorvastatin Calcium 80 mg 10/05/17 22:00 10/06/17 21:15 Lipitor PO 80 mg QHS TEETEE Administration Bisacodyl 10 mg 10/05/17 16:33 Dulcolax RECTAL .PRN X 1 PRN Constipation Clopidogrel Bisulfate 75 mg 10/06/17 10:00 10/07/17 07:45 Plavix PO 75 mg DAILY TEETEE Administration Doxazosin Mesylate 2 mg 10/06/17 10:00 10/07/17 07:45 Cardura PO 2 mg DAILY TEETEE Administration Enoxaparin Sodium 40 mg 10/06/17 06:00 10/07/17 05:49 Lovenox SC 40 mg DAILY@0600 [facility] Administration Glipizide 5 mg 10/06/17 08:00 10/07/17 07:45 Glucotrol PO 5 mg DAILY@0800 TEETEE Administration Insulin Glargine 14 units 10/06/17 10:00 10/07/17 11:16 Lantus (Bkc) SC 14 u DAILY TEETEE Administration Insulin Human Lispro 0 unit 10/05/17 16:32 10/07/17 11:13 Humalog Kwikpen ([facility]) SC 9 u ACHS TEETEE Administration Protocol Insulin Human Lispro 4 unit 10/06/17 16:00 10/07/17 11:13 Humalog Kwikpen ([facility]) SC 4 u TIDAC TEETEE Administration Lisinopril 5 mg 10/06/17 10:00 10/07/17 11:16 Zestril PO 5 mg DAILY TEETEE Administration Magnesium Hydroxide 30 ml 10/05/17 16:33 Milk Of Magnesia PO .PRN X 1 PRN Constipation Metformin HCl 1,000 mg 10/06/17 08:00 10/07/17 07:46 Glucophage PO 1,000 mg DAILY@0800 TEETEE Administration Naproxen 500 mg 10/06/17 08:00 10/07/17 07:45 Naprosyn PO 500 mg DAILY@0800 [facility] Administration Senna/Docusate Sodium 2 tablet 10/05/17 22:00 10/07/17 11:17 Senokot-S, Denisa-Colace PO 1 tablet BID TEETEE Administration Assessment/Plan All Active Problems Stroke-like symptoms (Acute) 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 Goal of rehab is amish of prior level of functional independence. Sickle therapy for gait and balance Occupational Therapy for ADLs Blood pressure control Sliding scale insulin DVT prophylaxis: Lovenox Bowel protocol As needed analgesics Stroke prevention: Statin therapy, blood pressure control, Plavix
--- NOTE | 2017-10-07 13:37 | REHABEVAL_ITS ---
Admission Information Status Changes from Prescreening?: No changes Identified Actual Problem List:: Mobility Impaired, Self Care Deficit, Diabetes, Hyperglycemia, BP, Hypertension, Ineffect.D/C Plan r/t Psy Potential Problem List:: DVT, Bleeding, Infection, UTI, Aspiration, Falls, Skin Integrity, Depression Risk of Complications DVT: LMWH, LEO Hose, Sequential Compression Device Bleeding: Monitor Lab Values, Nursing to Teach Precautions for anti-coagulation therapy., Wound, if applicable, to be assessed every shift., Stroke patients assessed for lethargy or change in status. Infection: Clinical Staff to Monitor for S/S of infection:, S/S of infection include fever, redness, warmth, etc. Urinary Tract Infection: Monitor for frequency, burning, discomfort, or incontinence., Nursing will obtain urine sample for urinalysis and C&S when ordered. Aspiration: Clinical staff will monitor for coughing, drooling, congestion., Speech will evaluate swallowing and dsyphasia., Nursing will monitor patient swallowing during meals. Falls: Patient will be evaluated for Fall Precautions, Patient will be placed on Fall Precautions as indicated per protocol. Skin Breakdown: Nursing will assess skin daily using assessment tool., Nursing will place on Skin Breakdown Precautions as indicated. Pain: Clinical staff will assess patient's pain level per protocol., Medications will be given, if needed, and the pain level reassessed., Other methods: Massage, distraction, decrease stimulus, etc. used PRN. Plan of Care Patient requires physician specializing in physical medicine and rehab oversight to provide close medical supervision of rehab issues including: Pain Management, Sleep Problems, Bowel and Bladder, Medical and co-morbidity Management, DVT prophylaxis, Rehabilitation Leadership, Coordination of treatment team Patient needs Physical Therapy: For a minimum of 1 hour, At least 5 out of 7 days Patient needs Physical Therapy to improve:: Mobility, Mobility, Mobility, Strengthening, Transfers, Stretching, ROM, Endurance, Stairs, Gait, Balance Patient needs Occupational Therapy: For a minimum of 1 hour, At least 5 out of 7 days Patient needs Occupational Therapy to improve ADL's incl.: Eating, Grooming, Bathing, Dressing, Toileting, Toilet transfers, Community Reintegration, Higher functioning activities, Household tasks, Adaptive Equipment, Splinting, Other activities as determined Patient requires speech therapy: For a minimum of 1 hour, At least 5 out of 7 days Patient requires speech therapy for: Swallowing, Cognition, Language Skills, Compensatory Strategies Patient requires 24/ Rehabilitation Nursing for: Pain Issues, Identifying and preventing risk factors, Monitoring and reporting current medical conditions, Assisting with ambulation, transfer, and all ADL's, Teaching patients about disease process and medications, Family teaching, Providing safe environment, Bowel and Bladder Issues, Skin integrity, Medication Management Patient needs Instrument Maintenance Supervisor/ Case Management for: Discharge Planning, Arranging Home Equipment or Services, Family Interventions Patient needs Dietary and Nutrition Services for: Adequate Nutrition, Nutritional Supplements, Nutritional Education Goals Patient will remain: free from falls, or injury at time of discharge. Patient will perform bed mobility at: MOD I level of assist. Patient will complete transfers from bed to chair at: MOD I level of assist. Patient will ambulate: 100 feet, with MOD I assist, with LRD Patient will complete upper body dressing at: MOD I level of assist. Patient will complete lower body dressing at: MOD I level of assist. Patient will complete toileting at: MOD I level of assist. Patient will perform bathing at: MOD I level of assist. Patient will complete grooming at: MOD I level of assist. Patient will complete home management skills at: MOD I level of assist. Patient will achieve: 12 stairs, at MOD I assist Patient will have pain level of: of 3 or less Patient's skin will: remain intact, free from infection. Patient will receive: adequate nutrition. Discharge Planning Pt Prognosis for Sig. Practical Improv. w/in Reasonable Time: Good Anticipated D/C Destination: Home with Outpt Therapy Was Preadmission Assessment Accurate?: Yes
[2017-10-07 17:00] LABS: Bedside Glucose 254 mg/dL (70-110)
[2017-10-07 20:09] VITALS: BP 130/74; PULSE 101; RESP 16; TEMP 36.8; O2SAT 96
[2017-10-07 20:10] VITALS: PULSE 101; RESP 16; O2SAT 96
[2017-10-07 20:14] VITALS: BMI 30.7
[2017-10-07] MEDS: Atorvastatin Calcium 80 MG Tablet PO (21:24)
[2017-10-07 21:25] LABS: Bedside Glucose 254 mg/dL (70-110)
--- NOTE | 2017-10-08 03:22 | NURSING ---
Reviewed and agree with DRAPERY MAKER documentation and FIMs charting.
[2017-10-08] MEDS: Enoxaparin 40 MG/0.4 ML Syringe SC (05:26)
[2017-10-08 06:31] LABS: Bedside Glucose 306 mg/dL (70-110)
[2017-10-08] MEDS: Insulin Lispro 100 UNIT/ML INSULN.PEN SC ×6 (07:33→21:26)
[2017-10-08] MEDS: metFORMIN HCl 1,000 MG Tablet 1000 MG PO (07:34)
[2017-10-08] MEDS: Doxazosin 1 MG Tablet 2 MG PO (07:34)
[2017-10-08] MEDS: Naproxen 500 MG Tablet PO (07:34)
[2017-10-08] MEDS: Clopidogrel Bisulfate 75 MG Tablet PO (07:34)
[2017-10-08] MEDS: Lisinopril 5 MG Tablet PO (07:34)
[2017-10-08] MEDS: glipiZIDE 5 MG Tablet PO (07:34)
[2017-10-08 08:30] VITALS: BP 107/93; PULSE 90; RESP 16; TEMP 36.7; O2SAT 94
--- NOTE | 2017-10-08 11:00 | NURSING ---
Dr paris and dr forbes given update on patients blood sugar.
[2017-10-08 11:20] VITALS: BMI 30.7
[2017-10-08 11:21] LABS: Bedside Glucose 257 mg/dL (70-110)
--- NOTE | 2017-10-08 12:30 | PCM.PROGNOTE ---
Subjective: Chief complaint: Follow-up after consultation for medical management after admission to rehabilitation unit for acute right medullary infarct and uncontrolled type 2 diabetes mellitus. Patient seen and examined. No acute events overnight. He denied any significant complaints. Still having numbness in the right cheek. His vital signs are stable, blood pressure under control. - Physical Exam General: Alert, Oriented x3, Cooperative, No apparent distress HEENT: Atraumatic, PERRLA, EOMI, Normocephalic Oral: Moist Mucosa, No Gingival or Mucosal Lesions/ Ulcerations Neck: Supple, No JVD, Negative Carotid Bruits, Trachea Midline, Thyroid Normal Size and Texture Lungs: Clear to auscultation, Normal air movement, No rhonchi, No wheeze, No rales Cardiovascular: Regular rate, Regular Rhythm, Normal S1, Normal S2, PMI Normal Abdomen: Bowel Sounds Present, Soft, Non Tender, Non-Distended, No Hepato-splenomegaly Extremities: No clubbing, No cyanosis, No edema Skin: No rashes, No breakdown Lymphatic: No Cervical, Supraclavicular, or Inguinal Adenopathy Neurological: Cranial nerves II-XII grossly intact, Motor Exam 5/5 strength throughout Psych/Mental Status: Normal Affect, Appropriate, Alert and oriented to time, place, person, mood and affect Vital Signs Temp Pulse Resp BP Pulse Ox 98.1 F 90 16 107/93 H 94 10/08/17 08:30 10/08/17 08:30 10/08/17 08:30 10/08/17 08:30 10/08/17 08:30 Oxygen Delivery Method Room Air Weight: 214 lb 8.156 oz Body Mass Index (BMI) 30.7 Intake and Output for Last 24 Hours 10/06/17 10/07/17 10/08/17 23:59 23:59 23:59 Intake Total 460 / 460 720 / 720 360 / 360 Output Total 1400 / 1400 Balance -940 / -940 720 / 720 360 / 360 POC Glucose 10/08/17 10/08/17 10/07/17 11:15 06:26 21:22 POC Glucose 257 H 306 H 254 H 10/07/17 16:49 POC Glucose 254 H Medical Necessity - Tobacco Use Smoking Status: Former smoker Assessment/Plan All Active Problems Stroke-like symptoms (Acute) This is a 72 years old male patient admitted directly from outside hospital for symptoms of right facial droop, right cheek numbness, difficulty swallowing and 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 #1 Acute right medullary infarction: With resultant minimal right facial droop/right cheek numbness and dysphagia. He is on Plavix and statins. His vital signs are stable, blood pressure under control. Stroke workup that was done in the floor reviewed as below. #2 dysphagia: Secondary to above. Patient was seen by speech therapy, on soft mechanical diet and nectar thick liquid. Plan to continue speech therapy. #3 hypertension: Blood pressure stable. Continue on lisinopril. #4 type 2 diabetes mellitus, uncontrolled: His hemoglobin A1c was 10.9. He is on glipizide and metformin, daily Lantus and pre-meal hemoglobin as well as sliding scale. This morning blood sugar was 408 mg/dL. Plan to continue same treatment, continue Accu-Cheks, and to increase insulin tomorrow blood sugar remained on the higher side. #5 hyperlipidemia: Continue Lipitor. #6 benign prostatic hypertrophy: Continue Cardura. #7 DVT prophylaxis: Subcu Lovenox. This note was generated with [employer] dictation software. It may contain incorrect words, spelling, and punctuation that were not noted in checking the note before signing. Code Visit Inpatient E&M: 55867 Subs Hosp L2
--- NOTE | 2017-10-08 13:11 | PCM.PN.NEU ---
Subjective: No issues overnight. Patient care discussed with nursing staff. 72 yr CM with PMH HTN, HLD, DM, BPH, recent acute right lateral medullary stroke admitted to [facility] with debility post stroke, for > 3hrs therapy daily, with the goal of returning home at or near his prior level of functional independence. - Physical Exam General: Alert HEENT: Normocephalic Neck: Supple Lungs: Normal air movement Cardiovascular: Normal S1, Normal S2 Abdomen: Bowel Sounds Present Extremities: No cyanosis Musculoskeletal: No Tenderness to Palpation of Joints or Extremities Neurological: - - consious, alert, AoAx3, CN- right horners syndrome, right facial numbness, mild left facial palsy, power 5/5 all 4 extremities, denies any sensory loss in the extremities, Reflexes + B/L B/S/K/T/A, gait deferred. Psych/Mental Status: Normal Affect Vital Signs Temp Pulse Resp BP Pulse Ox 98.1 F 90 16 107/93 H 94 10/08/17 08:30 10/08/17 08:30 10/08/17 08:30 10/08/17 08:30 10/08/17 08:30 Oxygen Delivery Method Room Air Weight: 97.3 kg Body Mass Index (BMI) 30.7 Intake and Output for Last 24 Hours 10/06/17 10/07/17 10/08/17 23:59 23:59 23:59 Intake Total 460 / 460 720 / 720 360 / 360 Output Total 1400 / 1400 Balance -940 / -940 720 / 720 360 / 360 POC Glucose 10/08/17 10/08/17 10/07/17 11:15 06:26 21:22 POC Glucose 257 H 306 H 254 H 10/07/17 16:49 POC Glucose 254 H Medical Necessity - Tobacco Use Smoking Status: Former smoker Assessment/Plan All Active Problems Stroke-like symptoms (Acute) 72 yr CM with PMH HTN, HLD, DM, BPH, recent acute right lateral medullary stroke admitted to [facility] with debility post stroke, for > 3hrs therapy daily, with the goal of returning home at or near his prior level of functional independence. Plan -PT for gait stability -OT for ADLs -ST for swallowing issues and dysphagia -Analgesics as needed -Bowel protocol -HTN-stable, goal BP < 130/80 mmHg, on Lisinopril -HLD- on Lipitor -DM- uncontrolled, Qvh2n-69.6%, on Insulin, metformin, glipizide, better control with goal Hba1c < 7%, is being managed by hospitalist. May need outpatient endocrinology evaluation -Acute right lateral medullary infarct- On Plavix and Lipitor -Stroke risk factors discussed and stroke education provided -BPH-on Cardura -GI/DVT prophylaxis -Fall precautions -Follow ups- with Neurology as outpatient in 2-3 weeks after discharge and PCP follow up. -Further medical management per hospitalist recommendation.
--- NOTE | 2017-10-08 13:16 | PN.NEURO_ITS ---
Subjective: No issues overnight. Patient care discussed with nursing staff. 72 yr CM with PMH HTN, HLD, DM, BPH, recent acute right lateral medullary stroke admitted to [facility] with debility post stroke, for > 3hrs therapy daily, with the goal of returning home at or near his prior level of functional independence. - Physical Exam General: Alert HEENT: Normocephalic Neck: Supple Lungs: Normal air movement Cardiovascular: Normal S1, Normal S2 Abdomen: Bowel Sounds Present Extremities: No cyanosis Musculoskeletal: No Tenderness to Palpation of Joints or Extremities Neurological: - - consious, alert, AoAx3, CN- right horners syndrome, right facial numbness, mild left facial palsy, power 5/5 all 4 extremities, denies any sensory loss in the extremities, Reflexes + B/L B/S/K/T/A, gait deferred. Psych/Mental Status: Normal Affect Vital Signs Temp Pulse Resp BP Pulse Ox 98.1 F 90 16 107/93 H 94 10/08/17 08:30 10/08/17 08:30 10/08/17 08:30 10/08/17 08:30 10/08/17 08:30 Oxygen Delivery Method Room Air Weight: 97.3 kg Body Mass Index (BMI) 30.7 Intake and Output for Last 24 Hours 10/06/17 10/07/17 10/08/17 23:59 23:59 23:59 Intake Total 460 / 460 720 / 720 360 / 360 Output Total 1400 / 1400 Balance -940 / -940 720 / 720 360 / 360 POC Glucose 10/08/17 10/08/17 10/07/17 11:15 06:26 21:22 POC Glucose 257 H 306 H 254 H 10/07/17 16:49 POC Glucose 254 H Medical Necessity - Tobacco Use Smoking Status: Former smoker Assessment/Plan All Active Problems Stroke-like symptoms (Acute) 72 yr CM with PMH HTN, HLD, DM, BPH, recent acute right lateral medullary stroke admitted to [facility] with debility post stroke, for > 3hrs therapy daily , with the goal of returning home at or near his prior level of functional independence. Plan -PT for gait stability -OT for ADLs -ST for swallowing issues and dysphagia -Analgesics as needed -Bowel protocol -HTN-stable, goal BP < 130/80 mmHg, on Lisinopril -HLD- on Lipitor -DM- uncontrolled, Hwf2p-42.6%, on Insulin, metformin, glipizide, better control with goal Hba1c < 7%, is being managed by hospitalist. May need outpatient endocrinology evaluation -Acute right lateral medullary infarct- On Plavix and Lipitor -Stroke risk factors discussed and stroke education provided -BPH-on Cardura -GI/DVT prophylaxis -Fall precautions -Follow ups- with Neurology as outpatient in 2-3 weeks after discharge and PCP follow up. -Further medical management per hospitalist recommendation.
[2017-10-08 14:51] LABS: Bedside Glucose 216 mg/dL (70-110)
[2017-10-08 16:36] LABS: Bedside Glucose 138 mg/dL (70-110)
[2017-10-08 21:15] VITALS: BP 131/70; PULSE 92; RESP 20; TEMP 36.5; O2SAT 95; BMI 30.7
[2017-10-08] MEDS: Atorvastatin Calcium 80 MG Tablet PO (21:26)
[2017-10-08 22:00] LABS: Bedside Glucose 281 mg/dL (70-110)
--- NOTE | 2017-10-09 01:32 | NURSING ---
Reviewed and agree with CORPORATE RECYCLING MANAGER documentation and FIMs charting.
[2017-10-09] MEDS: Enoxaparin 40 MG/0.4 ML Syringe SC (05:16)
[2017-10-09 05:53] LABS: Anion Gap 11 (5-15); BUN 23 mg/dL (7-18); Calcium,Total 9.1 mg/dL (8.5-10.1); Chloride 103 mmol/L (98-107); Creatinine, Serum 1.21 mg/dL (0.70-1.30); EST Glomerular Filtration Rate 63 mL/min (>60); Est Glom Filt Rate - Afr Amer 76 mL/min (>60); Estimated Creatinine Clearance 58.65 ml/min; Glucose 241 mg/dL (74-106); Sodium Level 139 mmol/L (136-145)
--- NOTE | 2017-10-09 05:59 | NURSING ---
am care completed and pt ambulated to the recliner and reports that he is dizziness and became severely nauseated. episode lasted for 5 minutes then pt reports that he is feeling better. pt reports that he has the dizziness is random and them becomes nauseated. this is a new since pt had is stroke
[2017-10-09] MEDS: Insulin Lispro 100 UNIT/ML INSULN.PEN SC ×7 (07:04→22:26)
[2017-10-09 07:11] LABS: Bedside Glucose 276 mg/dL (70-110)
[2017-10-09 07:42] VITALS: BP 121/82; PULSE 91; RESP 19; TEMP 36.6; O2SAT 95
[2017-10-09] MEDS: Doxazosin 1 MG Tablet 2 MG PO (07:53)
[2017-10-09] MEDS: metFORMIN HCl 1,000 MG Tablet 1000 MG PO (07:53)
[2017-10-09] MEDS: Lisinopril 5 MG Tablet PO (07:53)
[2017-10-09] MEDS: Clopidogrel Bisulfate 75 MG Tablet PO (07:54)
[2017-10-09] MEDS: Naproxen 500 MG Tablet PO (07:54)
[2017-10-09] MEDS: glipiZIDE 5 MG Tablet PO (07:54)
[2017-10-09] MEDS: Senna/Docusate Sodium 1 Tablet 2 TABLET PO ×2 (07:55→22:26)
--- NOTE | 2017-10-09 10:25 | PCM.PN.NEU ---
Subjective: No Issues overnight, patient discussed with nursing staff. Complained of some dizziness this morning when moved his head along with nausea. At present per patient dizziness is better. - Physical Exam General: Alert HEENT: Normocephalic Neck: Supple Lungs: Clear to auscultation Cardiovascular: Normal S1, Normal S2 Abdomen: Bowel Sounds Present Extremities: No cyanosis Musculoskeletal: No Tenderness to Palpation of Joints or Extremities Neurological: - - consious, alert, AoAx3, CN- right horners syndrome, right facial numbness, mild left facial palsy, power 5/5 all 4 extremities, denies any sensory loss in the extremities, Reflexes + B/L B/S/K/T/A, gait deferred. Psych/Mental Status: Normal Affect Vital Signs Temp Pulse Resp BP Pulse Ox 97.9 F 91 19 H 121/82 H 95 10/09/17 07:42 10/09/17 07:42 10/09/17 07:42 10/09/17 07:42 10/09/17 07:42 Oxygen Delivery Method Room Air Weight: 97.3 kg Body Mass Index (BMI) 30.7 Intake and Output for Last 24 Hours 10/07/17 10/08/17 10/09/17 23:59 23:59 23:59 Intake Total 720 / 720 1080 / 1080 440 / 440 Output Total 408 / 408 Balance 720 / 720 672 / 672 440 / 440 Laboratory Tests Past 24 Hrs 10/09/17 05:27 Sodium 139 Potassium 5.0 Chloride 103 Carbon Dioxide 25.0 Anion Gap 11 BUN 23 H Creatinine 1.21 Estim Creat Clear Calc 58.65 Est GFR (MDRD) Af Amer 76 Est GFR (MDRD) Non-Af 63 BUN/Creatinine Ratio 19.0 Glucose 241 H Calcium 9.1 POC Glucose 10/09/17 10/08/17 10/08/17 06:40 21:25 16:32 POC Glucose 276 H 281 H 138 H 10/08/17 10/08/17 12:48 11:15 POC Glucose 216 H 257 H Medical Necessity - Tobacco Use Smoking Status: Former smoker Assessment/Plan All Active Problems Stroke-like symptoms (Acute) 72 yr CM with PMH HTN, HLD, DM, BPH, recent acute right lateral medullary stroke admitted to [facility] with debility post stroke, for > 3hrs therapy daily, with the goal of returning home at or near his prior level of functional independence. Plan -PT for gait stability -OT for ADLs -ST for swallowing issues and dysphagia -Analgesics as needed -Bowel protocol -Vestibular therapy for dizziness and Zofran 4 mg PO TID PRN nausea. -HTN-stable, goal BP < 130/80 mmHg, on Lisinopril -HLD- on Lipitor -DM- uncontrolled, Swq5a-63.6%, on Insulin, metformin, glipizide, better control with goal Hba1c < 7%, is being managed by hospitalist. May need outpatient endocrinology evaluation -Acute right lateral medullary infarct- On Plavix and Lipitor -Stroke risk factors discussed and stroke education provided -BPH-on Cardura -GI/DVT prophylaxis -Fall precautions -Follow ups- with Neurology as outpatient in 2-3 weeks after discharge and PCP follow up. -Further medical management per hospitalist recommendation.
[2017-10-09 12:25] LABS: Bedside Glucose 245 mg/dL (70-110)
[2017-10-09 13:00] VITALS: BMI 30.7
[2017-10-09] MEDS: Ondansetron ODT 4 MG Tablet PO (14:24)
[2017-10-09 16:50] LABS: Bedside Glucose 205 mg/dL (70-110)
[2017-10-09 19:13] VITALS: BP 126/64; PULSE 94; RESP 16; TEMP 36.7; O2SAT 95
[2017-10-09] MEDS: Atorvastatin Calcium 80 MG Tablet PO (22:26)
[2017-10-09 22:35] LABS: Bedside Glucose 190 mg/dL (70-110)
[2017-10-10] MEDS: Enoxaparin 40 MG/0.4 ML Syringe SC (06:06)
[2017-10-10] MEDS: Ondansetron ODT 4 MG Tablet PO (06:06)
[2017-10-10 06:31] LABS: Bedside Glucose 223 mg/dL (70-110)
[2017-10-10] MEDS: Insulin Lispro 100 UNIT/ML INSULN.PEN SC ×7 (08:27→21:22)
[2017-10-10] MEDS: Naproxen 500 MG Tablet PO (08:28)
[2017-10-10] MEDS: Doxazosin 1 MG Tablet 2 MG PO (08:28)
[2017-10-10] MEDS: metFORMIN HCl 1,000 MG Tablet 1000 MG PO (08:29)
[2017-10-10] MEDS: glipiZIDE 5 MG Tablet PO (08:29)
[2017-10-10] MEDS: Clopidogrel Bisulfate 75 MG Tablet PO (08:30)
[2017-10-10] MEDS: Senna/Docusate Sodium 1 Tablet 2 TABLET PO ×2 (08:30→21:21)
[2017-10-10] MEDS: Lisinopril 5 MG Tablet PO (08:31)
[2017-10-10 08:38] VITALS: BP 125/67; PULSE 100; RESP 16; TEMP 36.8; O2SAT 96
--- NOTE | 2017-10-10 11:23 | PCM.PN.NEU ---
Subjective: NO Issues overnight. Dizziness better. Had nausea this morning, given Zofran PRN. Patient had dizziness on moving his head to one side. Patient care discussed with nursing staff. - Physical Exam General: Alert HEENT: Atraumatic Neck: Supple Lungs: Clear to auscultation Cardiovascular: Normal S1, Normal S2 Abdomen: Bowel Sounds Present Extremities: No cyanosis Skin: No rashes Musculoskeletal: No Tenderness to Palpation of Joints or Extremities Neurological: - - consious, alert, AoAx3, CN- right horners syndrome, right facial numbness, mild left facial palsy, power 5/5 all 4 extremities, denies any sensory loss in the extremities, Reflexes + B/L B/S/K/T/A, gait deferred. Psych/Mental Status: Normal Affect Vital Signs Temp Pulse Resp BP Pulse Ox 98.2 F 100 16 125/67 H 96 10/10/17 08:38 10/10/17 08:38 10/10/17 08:38 10/10/17 08:38 10/10/17 08:38 Oxygen Delivery Method Room Air Weight: 95.2 kg Body Mass Index (BMI) 30.7 Intake and Output for Last 24 Hours 10/08/17 10/09/17 10/10/17 23:59 23:59 23:59 Intake Total 1080 / 1080 440 / 440 440 / 440 Output Total 408 / 408 Balance 672 / 672 440 / 440 440 / 440 POC Glucose 10/10/17 10/09/17 10/09/17 06:27 22:25 16:43 POC Glucose 223 H 190 H 205 H 10/09/17 12:15 POC Glucose 245 H Medical Necessity - Tobacco Use Smoking Status: Former smoker Assessment/Plan All Active Problems Stroke-like symptoms (Acute) 72 yr CM with PMH HTN, HLD, DM, BPH, recent acute right lateral medullary stroke admitted to [facility] with debility post stroke, for > 3hrs therapy daily, with the goal of returning home at or near his prior level of functional independence. Plan -PT for gait stability -OT for ADLs -ST for swallowing issues and dysphagia -Analgesics as needed -Bowel protocol -Vestibular therapy for dizziness and Zofran 4 mg PO TID PRN nausea. -HTN-stable, goal BP < 130/80 mmHg, on Lisinopril -HLD- on Lipitor -DM- uncontrolled, Wqg8e-90.6%, on Insulin, metformin, glipizide, better control with goal Hba1c < 7%, is being managed by hospitalist. May need outpatient endocrinology evaluation -Acute right lateral medullary infarct- On Plavix and Lipitor -Stroke risk factors discussed and stroke education provided -BPH-on Cardura -GI/DVT prophylaxis -Fall precautions -Follow ups- with Neurology as outpatient in 2-3 weeks after discharge and PCP follow up. -Further medical management per hospitalist recommendation.
[2017-10-10 12:10] LABS: Bedside Glucose 237 mg/dL (70-110)
--- NOTE | 2017-10-10 15:25 | PCM.PN.HOSP ---
Subjective: Patient seen and examined. He had an episode of nausea this morning. Complains of dizziness when turning the head sideways sometimes. Denies fever, chills, SOB. Vitals/I&O's: Vital Signs Temp Pulse Resp BP Pulse Ox 98.2 F 100 16 125/67 H 96 10/10/17 08:38 10/10/17 08:38 10/10/17 08:38 10/10/17 08:38 10/10/17 08:38 Oxygen Delivery Method Room Air Weight: 95.2 kg Body Mass Index (BMI) 30.7 Intake and Output for Last 24 Hours 10/08/17 10/09/17 10/10/17 23:59 23:59 23:59 Intake Total 1080 / 1080 440 / 440 660 / 660 Output Total 408 / 408 Balance 672 / 672 440 / 440 660 / 660 General: Alert, Oriented x3, Cooperative, No apparent distress HEENT: Atraumatic, PERRLA, EOMI, Normocephalic Oral: Moist Mucosa Neck: Supple, No JVD, Negative Carotid Bruits Lungs: Clear to auscultation, Normal air movement Cardiovascular: Regular rate, Regular Rhythm, Normal S1, Normal S2, No murmurs Abdomen: Bowel Sounds Present, Soft, Non Tender, Non-Distended, No Hepato-splenomegaly, Passing Flatus Extremities: No edema Skin: No rashes, No breakdown Musculoskeletal: No Tenderness to Palpation of Joints or Extremities Lymphatic: No Cervical, Supraclavicular, or Inguinal Adenopathy Neurological: Cranial nerves II-XII grossly intact, Neuro grossly intact Psych/Mental Status: Normal Affect, Appropriate Laboratory Results 10/09/17 16:43: POC Glucose 205 H 10/09/17 22:25: POC Glucose 190 H 10/10/17 06:27: POC Glucose 223 H 10/10/17 12:07: POC Glucose 237 H Current Medications Atorvastatin Calcium (Lipitor) 80 mg PO QHS [facility] Last Admin: 10/09/17 22:26 Dose: 80 mg Bisacodyl (Dulcolax) 10 mg RECTAL .PRN X 1 PRN PRN Reason: Constipation Clopidogrel Bisulfate (Plavix) 75 mg PO DAILY [facility] Last Admin: 10/10/17 08:30 Dose: 75 mg Doxazosin Mesylate (Cardura) 2 mg PO DAILY [facility] Last Admin: 10/10/17 08:28 Dose: 2 mg Enoxaparin Sodium (Lovenox) 40 mg SC DAILY@0600 [facility] Last Admin: 10/10/17 06:06 Dose: 40 mg Glipizide (Glucotrol) 5 mg PO DAILY@0800 [facility] Last Admin: 10/10/17 08:29 Dose: 5 mg Insulin Glargine (Lantus (Bkc)) 14 units SC DAILY [facility] Last Admin: 10/10/17 12:11 Dose: 14 u Insulin Human Lispro (Humalog Kwikpen (Bkc)) 0 unit SC ACHS [facility] PRN Reason: Protocol Last Admin: 10/10/17 12:11 Dose: 6 u Insulin Human Lispro (Humalog Kwikpen (Bkc)) 4 unit SC TIDAC [facility] Last Admin: 10/10/17 12:12 Dose: 4 u Lisinopril (Zestril) 5 mg PO DAILY [facility] Last Admin: 10/10/17 08:31 Dose: 5 mg Magnesium Hydroxide (Milk Of Magnesia) 30 ml PO .PRN X 1 PRN PRN Reason: Constipation Metformin HCl (Glucophage) 1,000 mg PO DAILY@0800 [facility] Last Admin: 10/10/17 08:29 Dose: 1,000 mg Naproxen (Naprosyn) 500 mg PO DAILY@0800 [facility] Last Admin: 10/10/17 08:28 Dose: 500 mg Ondansetron HCl (Zofran Odt) 4 mg PO Q8H PRN PRN PRN Reason: NAUSEA/VOMITING Last Admin: 10/10/17 06:06 Dose: 4 mg Senna/Docusate Sodium (Senokot-S, Denisa-Colace) 2 tablet PO BID [facility] Last Admin: 10/10/17 08:30 Dose: 1 tablet Medical Necessity - Tobacco Use Smoking Status: Former smoker Assessment/Plan All Active Problems Stroke-like symptoms (Acute) 72 years old male patient admitted to acute rehab with symptoms of right facial droop, right cheek numbness, difficulty swallowing and 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 1. 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 Dysphagia, nora mechanical soft and nectar thick liquid, speech therapy following. 4. Type 2 diabetes mellitus, uncontrolled, HgbA1c is 10.9, on glipizide and metformin, daily Lantus and pre-meal hemoglobin as well as sliding scale. 5. Hyperlipidemia, on Lipitor. 6. Benign prostatic hypertrophy, on Cardura. 7. DVT prophylaxis - Lovenox SC. Code Visit Inpatient E&M: 16688 Subs Hosp L2
[2017-10-10 16:41] LABS: Bedside Glucose 232 mg/dL (70-110)
[2017-10-10 17:00] VITALS: BMI 30.7
[2017-10-10 19:55] VITALS: BP 140/85; PULSE 84; RESP 17; TEMP 36.5; O2SAT 94
[2017-10-10] MEDS: Atorvastatin Calcium 80 MG Tablet PO (21:21)
[2017-10-10 21:36] LABS: Bedside Glucose 200 mg/dL (70-110)
[2017-10-11] MEDS: Enoxaparin 40 MG/0.4 ML Syringe SC (05:47)
[2017-10-11 09:23] VITALS: BP 133/84; PULSE 96; RESP 18; TEMP 36.4; O2SAT 98
[2017-10-11 10:06] LABS: Bedside Glucose 404 mg/dL (70-110)
[2017-10-11] MEDS: Insulin Lispro 100 UNIT/ML INSULN.PEN SC ×6 (10:09→20:54)
[2017-10-11] MEDS: Lisinopril 5 MG Tablet PO (10:10)
[2017-10-11] MEDS: Clopidogrel Bisulfate 75 MG Tablet PO (10:10)
[2017-10-11] MEDS: glipiZIDE 5 MG Tablet PO (10:11)
[2017-10-11] MEDS: Senna/Docusate Sodium 1 Tablet 2 TABLET PO ×2 (10:11→20:54)
[2017-10-11] MEDS: metFORMIN HCl 1,000 MG Tablet 1000 MG PO (10:11)
[2017-10-11] MEDS: Naproxen 500 MG Tablet PO (10:11)
[2017-10-11] MEDS: Doxazosin 1 MG Tablet 2 MG PO (10:11)
--- NOTE | 2017-10-11 11:05 | CASEMGMT ---
Team meeting held. Patient present as well as patient family. No discharge date set at this time. Patient to continue with further care and treatment on the Inpatient Rehab Unit. Patient with insurance update due on this day, 10/11/17 and aware that continued stay approval is not guaranteed. Patient plans to discharge to home alone at time of discharge. Support given. Will continue to follow. Gabby HARRIS, DIRECTOR REGULATORY AGENCY
[2017-10-11 11:30] LABS: Bedside Glucose 257 mg/dL (70-110)
--- NOTE | 2017-10-11 11:43 | NS ---
Estimated nutritional needs 4429-1701 calories/day. Current diet as ordered only meeting 81% of pt's estimated needs. Significant wt loss since admission on 10/05/17. Was 214.5# and CBW 209.9#-2% wt loss x 6 days, significant for malnutrition. Some wt loss would be desirable given pt's BMI and other comorbidities however rapid, significant wt loss is not appropriate at this time. Recommend diet change to 2000 calorie controlled prevent further significant wt loss.
--- NOTE | 2017-10-11 12:58 | PCM.PN.NEU ---
Subjective: No issues overnight. Staffed in team meeting today. All questions were answered. With PT- walked about 50 feet on Sunday, but was able to walk more today, walking-contact guard assist, transfer-stand by assist steps-light hand. OT-grooming/upper body care-set up level, lower body care-stand by assist. ST-regular diet except for meat. Vertigo improved, balance issues improving but still continues to have the same. Nausea improved with Zofran. - Physical Exam General: Alert HEENT: Normocephalic Neck: Supple Lungs: Clear to auscultation Cardiovascular: Normal S1, Normal S2 Abdomen: Bowel Sounds Present Extremities: No cyanosis Skin: No rashes Musculoskeletal: No Tenderness to Palpation of Joints or Extremities Neurological: - - consious, alert, AoAx3, CN- right horners syndrome, right facial numbness, mild left facial palsy, power 5/5 all 4 extremities, right sided cordination issues, denies any sensory loss in the extremities, Reflexes + B/L B/S/K/T/A, gait deferred. Psych/Mental Status: Normal Affect Vital Signs Temp Pulse Resp BP Pulse Ox 97.5 F L 96 18 133/84 H 98 10/11/17 09:23 10/11/17 09:23 10/11/17 09:23 10/11/17 09:23 10/11/17 09:23 Oxygen Delivery Method Room Air Weight: 95.2 kg Body Mass Index (BMI) 30.7 Intake and Output for Last 24 Hours 10/09/17 10/10/17 10/11/17 23:59 23:59 23:59 Intake Total 440 / 440 1060 / 1060 320 / 320 Balance 440 / 440 1060 / 1060 320 / 320 POC Glucose 10/11/17 10/11/17 10/10/17 11:28 09:59 21:20 POC Glucose 257 H 404 H 200 H 10/10/17 16:36 POC Glucose 232 H Medical Necessity - Tobacco Use Smoking Status: Former smoker Assessment/Plan All Active Problems Stroke-like symptoms (Acute) 72 yr CM with PMH HTN, HLD, DM, BPH, recent acute right lateral medullary stroke admitted to [facility] with debility post stroke, for > 3hrs therapy daily, with the goal of returning home at or near his prior level of functional independence. Plan -PT for gait stability -OT for ADLs -ST for swallowing issues and dysphagia -Analgesics as needed -Bowel protocol -Vestibular therapy for dizziness and Zofran 4 mg PO TID PRN nausea. -HTN-stable, goal BP < 130/80 mmHg, on Lisinopril -HLD- on Lipitor -DM- uncontrolled, [id number]-10.6%, on Insulin, metformin, glipizide, better control with goal Hba1c < 7%, is being managed by hospitalist. May need outpatient endocrinology evaluation -Acute right lateral medullary infarct- On Plavix and Lipitor -Stroke risk factors discussed and stroke education provided -BPH-on Cardura -GI/DVT prophylaxis -Fall precautions -Follow ups- with Neurology as outpatient in 2-3 weeks after discharge and PCP follow up. -Further medical management per hospitalist recommendation.
--- NOTE | 2017-10-11 13:04 | PN.NEURO_ITS ---
Subjective: No issues overnight. Staffed in team meeting today. All questions were answered. With PT- walked about 50 feet on Sunday, but was able to walk more today, walking-contact guard assist, transfer-stand by assist steps-light hand. OT-grooming/upper body care-set up level, lower body care-stand by assist. ST- regular diet except for meat. Vertigo improved, balance issues improving but still continues to have the same. Nausea improved with Zofran. - Physical Exam General: Alert HEENT: Normocephalic Neck: Supple Lungs: Clear to auscultation Cardiovascular: Normal S1, Normal S2 Abdomen: Bowel Sounds Present Extremities: No cyanosis Skin: No rashes Musculoskeletal: No Tenderness to Palpation of Joints or Extremities Neurological: - - consious, alert, AoAx3, CN- right horners syndrome, right facial numbness, mild left facial palsy, power 5/5 all 4 extremities, right sided cordination issues, denies any sensory loss in the extremities, Reflexes + B/L B/S/K/T/A, gait deferred. Psych/Mental Status: Normal Affect Vital Signs Temp Pulse Resp BP Pulse Ox 97.5 F L 96 18 133/84 H 98 10/11/17 09:23 10/11/17 09:23 10/11/17 09:23 10/11/17 09:23 10/11/17 09:23 Oxygen Delivery Method Room Air Weight: 95.2 kg Body Mass Index (BMI) 30.7 Intake and Output for Last 24 Hours 10/09/17 10/10/17 10/11/17 23:59 23:59 23:59 Intake Total 440 / 440 1060 / 1060 320 / 320 Balance 440 / 440 1060 / 1060 320 / 320 POC Glucose 10/11/17 10/11/17 10/10/17 11:28 09:59 21:20 POC Glucose 257 H 404 H 200 H 10/10/17 16:36 POC Glucose 232 H Medical Necessity - Tobacco Use Smoking Status: Former smoker Assessment/Plan All Active Problems Stroke-like symptoms (Acute) 72 yr CM with PMH HTN, HLD, DM, BPH, recent acute right lateral medullary stroke admitted to [facility] with debility post stroke, for > 3hrs therapy daily , with the goal of returning home at or near his prior level of functional independence. Plan -PT for gait stability -OT for ADLs -ST for swallowing issues and dysphagia -Analgesics as needed -Bowel protocol -Vestibular therapy for dizziness and Zofran 4 mg PO TID PRN nausea. -HTN-stable, goal BP < 130/80 mmHg, on Lisinopril -HLD- on Lipitor -DM- uncontrolled, [id number]-67.6%, on Insulin, metformin, glipizide, better control with goal Hba1c < 7%, is being managed by hospitalist. May need outpatient endocrinology evaluation -Acute right lateral medullary infarct- On Plavix and Lipitor -Stroke risk factors discussed and stroke education provided -BPH-on Cardura -GI/DVT prophylaxis -Fall precautions -Follow ups- with Neurology as outpatient in 2-3 weeks after discharge and PCP follow up. -Further medical management per hospitalist recommendation.
--- NOTE | 2017-10-11 13:42 | CASEMGMT ---
Insurance Clinical information faxed. Pending continued stay approval. Auth#[id number] Gabby HARRIS, PEARL HAND
[2017-10-11 14:52] VITALS: BMI 30.7
[2017-10-11 16:41] LABS: Bedside Glucose 128 mg/dL (70-110)
[2017-10-11 18:52] VITALS: BP 112/62; PULSE 102; RESP 17; TEMP 36.7; O2SAT 96
[2017-10-11] MEDS: Atorvastatin Calcium 80 MG Tablet PO (20:54)
[2017-10-11 21:06] LABS: Bedside Glucose 244 mg/dL (70-110)
[2017-10-12 05:00] VITALS: BMI 30.7
[2017-10-12] MEDS: Enoxaparin 40 MG/0.4 ML Syringe SC (06:04)
[2017-10-12] MEDS: Ondansetron ODT 4 MG Tablet PO (06:04)
[2017-10-12 06:31] LABS: Bedside Glucose 263 mg/dL (70-110)
--- NOTE | 2017-10-12 07:34 | PCM.PN.HOSP ---
Subjective: Patient was seen and examined. He complains of feeling less nausea since starting Zofran p.o. No vomiting, terminal discomfort, fever or chills. Therapy is going very well. Vitals/I&O's: Vital Signs Temp Pulse Resp BP Pulse Ox 98.0 F 102 H 17 112/62 96 10/11/17 18:52 10/11/17 18:52 10/11/17 18:52 10/11/17 18:52 10/11/17 18:52 Oxygen Delivery Method Room Air Weight: 95.2 kg Body Mass Index (BMI) 30.7 Intake and Output for Last 24 Hours 10/10/17 10/11/17 10/12/17 23:59 23:59 23:59 Intake Total 1060 / 1060 560 / 560 Balance 1060 / 1060 560 / 560 General: Alert, Oriented x3, Cooperative, No apparent distress HEENT: Atraumatic, PERRLA, EOMI, Normocephalic Oral: Moist Mucosa Neck: Supple Lungs: Clear to auscultation, Normal air movement Cardiovascular: Regular rate, Regular Rhythm, Normal S1, Normal S2, No murmurs Abdomen: Bowel Sounds Present, Soft, Non Tender, Non-Distended, No Hepato-splenomegaly Extremities: No edema Skin: No rashes, No breakdown Musculoskeletal: No Tenderness to Palpation of Joints or Extremities Lymphatic: No Cervical, Supraclavicular, or Inguinal Adenopathy Neurological: Neuro grossly intact, - - Slight right ptsosis, otherwise CN II-XII intact, power is 5/5, tone is normal Psych/Mental Status: Normal Affect, Appropriate Laboratory Results 10/11/17 09:59: POC Glucose 404 H 10/11/17 11:28: POC Glucose 257 H 10/11/17 16:37: POC Glucose 128 H 10/11/17 20:53: POC Glucose 244 H 10/12/17 06:25: POC Glucose 263 H Current Medications Atorvastatin Calcium (Lipitor) 80 mg PO QHS [facility] Last Admin: 10/11/17 20:54 Dose: 80 mg Bisacodyl (Dulcolax) 10 mg RECTAL .PRN X 1 PRN PRN Reason: Constipation Clopidogrel Bisulfate (Plavix) 75 mg PO DAILY [facility] Last Admin: 10/11/17 10:10 Dose: 75 mg Doxazosin Mesylate (Cardura) 2 mg PO DAILY [facility] Last Admin: 10/11/17 10:11 Dose: 2 mg Enoxaparin Sodium (Lovenox) 40 mg SC DAILY@0600 [facility] Last Admin: 10/12/17 06:04 Dose: 40 mg Glipizide (Glucotrol) 5 mg PO DAILY@0800 [facility] Last Admin: 10/11/17 10:11 Dose: 5 mg Insulin Glargine (Lantus (Bkc)) 14 units SC DAILY [facility] Last Admin: 10/11/17 10:11 Dose: 14 u Insulin Human Lispro (Humalog Kwikpen (Bk)) 0 unit SC ACHS [facility] PRN Reason: Protocol Last Admin: 10/11/17 20:54 Dose: 6 u Insulin Human Lispro (Humalog Kwikpen (Bk)) 4 unit SC TIDAC [facility] Last Admin: 10/11/17 17:03 Dose: 4 u Lisinopril (Zestril) 5 mg PO DAILY [facility] Last Admin: 10/11/17 10:10 Dose: 5 mg Magnesium Hydroxide (Milk Of Magnesia) 30 ml PO .PRN X 1 PRN PRN Reason: Constipation Metformin HCl (Glucophage) 1,000 mg PO DAILY@0800 [facility] Last Admin: 10/11/17 10:11 Dose: 1,000 mg Naproxen (Naprosyn) 500 mg PO DAILY@0800 [facility] Last Admin: 10/11/17 10:11 Dose: 500 mg Ondansetron HCl (Zofran Odt) 4 mg PO Q8H PRN PRN PRN Reason: NAUSEA/VOMITING Last Admin: 10/12/17 06:04 Dose: 4 mg Senna/Docusate Sodium (Senokot-S, Denisa-Colace) 2 tablet PO BID [facility] Last Admin: 10/11/17 20:54 Dose: 2 tablet Medical Necessity - Tobacco Use Smoking Status: Former smoker Assessment/Plan All Active Problems Stroke-like symptoms (Acute) 72 years old male patient admitted to acute rehab with symptoms of right facial droop, right cheek numbness, difficulty swallowing and 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 1. 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 Dysphagia, on mechanical soft and nectar thick liquid, speech therapy following. 4. Type 2 diabetes mellitus, BS remain uncontrolled, HgbA1c is 10.9, on glipizide and metformin, Increased Lantus to 16 units daily, continue on Lispro 4 units TID, accucheks with ISS. 5. Hyperlipidemia, on Lipitor. 6. Benign prostatic hypertrophy, on Cardura. 7. DVT prophylaxis - Lovenox SC. Code Visit Inpatient E&M: 95659 Subs Hosp L2
[2017-10-12 07:40] VITALS: BP 132/79; PULSE 87; RESP 16; TEMP 36.6; O2SAT 96
[2017-10-12] MEDS: Insulin Lispro 100 UNIT/ML INSULN.PEN SC ×7 (07:43→20:58)
[2017-10-12] MEDS: Senna/Docusate Sodium 1 Tablet 2 TABLET PO ×2 (07:44)
[2017-10-12] MEDS: Doxazosin 1 MG Tablet 2 MG PO (07:44)
[2017-10-12] MEDS: metFORMIN HCl 1,000 MG Tablet 1000 MG PO (07:44)
[2017-10-12] MEDS: glipiZIDE 5 MG Tablet PO (07:44)
[2017-10-12] MEDS: Clopidogrel Bisulfate 75 MG Tablet PO (07:44)
[2017-10-12] MEDS: Lisinopril 5 MG Tablet PO (07:44)
[2017-10-12] MEDS: Naproxen 500 MG Tablet PO (07:44)
[2017-10-12 10:59] VITALS: BMI 30.7
[2017-10-12 11:46] LABS: Bedside Glucose 226 mg/dL (70-110)
--- NOTE | 2017-10-12 12:07 | PN.NEURO_ITS ---
Subjective: No issues overnight. Patient care discussed with nursing staff. - Physical Exam General: Alert HEENT: Normocephalic Neck: Supple Lungs: Clear to auscultation Cardiovascular: Normal S1, Normal S2 Abdomen: Bowel Sounds Present Extremities: No cyanosis Skin: No rashes Musculoskeletal: No Tenderness to Palpation of Joints or Extremities Neurological: - - consious, alert, AoAx3, CN- right horners syndrome, right facial numbness, mild left facial palsy, power 5/5 all 4 extremities, right sided cordination issues, denies any sensory loss in the extremities, Reflexes + B/L B/S/K/T/A, gait deferred. Psych/Mental Status: Normal Affect Vital Signs Temp Pulse Resp BP Pulse Ox 97.8 F 87 16 132/79 H 96 10/12/17 07:40 10/12/17 07:40 10/12/17 07:40 10/12/17 07:40 10/12/17 07:40 Oxygen Delivery Method Room Air Weight: 95.2 kg Body Mass Index (BMI) 30.7 Intake and Output for Last 24 Hours 10/10/17 10/11/17 10/12/17 23:59 23:59 23:59 Intake Total 1060 / 1060 560 / 560 Balance 1060 / 1060 560 / 560 POC Glucose 10/12/17 10/12/17 10/11/17 11:39 06:25 20:53 POC Glucose 226 H 263 H 244 H 10/11/17 16:37 POC Glucose 128 H Medical Necessity - Tobacco Use Smoking Status: Former smoker Assessment/Plan All Active Problems Stroke-like symptoms (Acute) 72 yr CM with PMH HTN, HLD, DM, BPH, recent acute right lateral medullary stroke admitted to [facility] with debility post stroke, for > 3hrs therapy daily , with the goal of returning home at or near his prior level of functional independence. Plan -PT for gait stability -OT for ADLs -ST for swallowing issues and dysphagia -Analgesics as needed -Bowel protocol -Vestibular therapy for dizziness and Zofran 4 mg PO TID PRN nausea. -HTN-stable, goal BP < 130/80 mmHg, on Lisinopril -HLD- on Lipitor -DM- uncontrolled, [id number]-83.6%, on Insulin, metformin, glipizide, better control with goal Hba1c < 7%, is being managed by hospitalist. May need outpatient endocrinology evaluation -Acute right lateral medullary infarct- On Plavix and Lipitor -Stroke risk factors discussed and stroke education provided -BPH-on Cardura -GI/DVT prophylaxis -Fall precautions -Follow ups- with Neurology as outpatient in 2-3 weeks after discharge and PCP follow up. -Further medical management per hospitalist recommendation.
[2017-10-12 17:05] LABS: Bedside Glucose 191 mg/dL (70-110)
[2017-10-12 18:41] VITALS: BP 116/63; PULSE 87; RESP 18; TEMP 36.7; O2SAT 98
[2017-10-12] MEDS: Atorvastatin Calcium 80 MG Tablet PO (21:00)
[2017-10-12 21:14] VITALS: BP 116/63; PULSE 87; RESP 18; TEMP 36.7; O2SAT 98
[2017-10-12 21:16] LABS: Bedside Glucose 227 mg/dL (70-110)
[2017-10-13] MEDS: Ondansetron ODT 4 MG Tablet PO (05:45)
[2017-10-13] MEDS: Enoxaparin 40 MG/0.4 ML Syringe SC (05:45)
[2017-10-13 07:00] LABS: Bedside Glucose 249 mg/dL (70-110)
[2017-10-13 07:22] VITALS: BP 142/84; PULSE 87; RESP 18; TEMP 36.7; O2SAT 95
[2017-10-13] MEDS: Insulin Lispro 100 UNIT/ML INSULN.PEN SC ×4 (07:34→21:57)
[2017-10-13] MEDS: Naproxen 500 MG Tablet PO (07:34)
[2017-10-13] MEDS: metFORMIN HCl 1,000 MG Tablet 1000 MG PO (07:34)
[2017-10-13] MEDS: glipiZIDE 5 MG Tablet PO (07:34)
[2017-10-13] MEDS: Doxazosin 1 MG Tablet 2 MG PO (07:35)
[2017-10-13] MEDS: Clopidogrel Bisulfate 75 MG Tablet PO (07:35)
[2017-10-13] MEDS: Senna/Docusate Sodium 1 Tablet 2 TABLET PO ×2 (07:35→21:56)
[2017-10-13] MEDS: Lisinopril 5 MG Tablet PO (07:35)
[2017-10-13 08:47] LABS: Anion Gap 7 (5-15); BUN 34 mg/dL (7-18); BUN/Creat Ratio 24.8 RATIO (10-20); Calcium,Total 9.5 mg/dL (8.5-10.1); Chloride 102 mmol/L (98-107); Creatinine, Serum 1.37 mg/dL (0.70-1.30); EST Glomerular Filtration Rate 55 mL/min (>60); Est Glom Filt Rate - Afr Amer 66 mL/min (>60); Glucose 229 mg/dL (74-106); Potassium 4.8 mmol/L (3.5-5.1); Sodium Level 136 mmol/L (136-145)
[2017-10-13 10:45] VITALS: BMI 30.7
[2017-10-13 11:45] LABS: Bedside Glucose 173 mg/dL (70-110)
[2017-10-13] MEDS: Insulin Lispro 100 UNIT/ML INSULN.PEN 8 UNIT SC ×2 (11:46→16:43)
[2017-10-13 16:30] LABS: Bedside Glucose 132 mg/dL (70-110)
[2017-10-13] MEDS: Magnesium Hydroxide 30 ML UDC PO (16:43)
[2017-10-13 21:45] LABS: Bedside Glucose 217 mg/dL (70-110)
[2017-10-13 21:52] VITALS: BP 117/78; PULSE 96; RESP 17; TEMP 36.5; O2SAT 97
[2017-10-13] MEDS: Atorvastatin Calcium 80 MG Tablet PO (21:56)
[2017-10-14] MEDS: Ondansetron ODT 4 MG Tablet PO (06:08)
[2017-10-14] MEDS: Enoxaparin 40 MG/0.4 ML Syringe SC (06:08)
[2017-10-14 06:51] LABS: Bedside Glucose 224 mg/dL (70-110)
[2017-10-14] MEDS: Doxazosin 1 MG Tablet 2 MG PO (07:33)
[2017-10-14] MEDS: Insulin Lispro 100 UNIT/ML INSULN.PEN SC ×4 (07:33→20:05)
[2017-10-14] MEDS: Lisinopril 5 MG Tablet PO (07:33)
[2017-10-14] MEDS: metFORMIN HCl 1,000 MG Tablet 1000 MG PO (07:33)
[2017-10-14] MEDS: Naproxen 500 MG Tablet PO (07:33)
[2017-10-14] MEDS: Insulin Lispro 100 UNIT/ML INSULN.PEN 8 UNIT SC ×3 (07:33→16:50)
[2017-10-14] MEDS: Clopidogrel Bisulfate 75 MG Tablet PO (07:33)
[2017-10-14] MEDS: glipiZIDE 5 MG Tablet PO (07:33)
[2017-10-14] MEDS: Senna/Docusate Sodium 1 Tablet 2 TABLET PO ×2 (07:34→20:07)
[2017-10-14 08:03] VITALS: BP 138/70; PULSE 80; RESP 18; TEMP 36.9; O2SAT 94
[2017-10-14 12:20] LABS: Bedside Glucose 152 mg/dL (70-110)
--- NOTE | 2017-10-14 12:23 | PCM.PN.HOSP ---
Subjective: Patient is doing good on physical therapy but still has slight right lower extremity weakness and gait incoordination. Patient is on mechanical soft diet for oropharyngeal dysphagia secondary to stroke. Mild constipation with no bowel movement last 2 days. MiraLAX ordered. Blood sugar fasting is 224 but pre-meal glucoses are controlled. Vitals/I&O's: Vital Signs Temp Pulse Resp BP Pulse Ox 98.4 F 80 18 138/70 H 94 10/14/17 08:03 10/14/17 08:03 10/14/17 08:03 10/14/17 08:03 10/14/17 08:03 Oxygen Delivery Method Room Air Weight: 209 lb 14.081 oz Body Mass Index (BMI) 30.7 Intake and Output for Last 24 Hours 10/12/17 10/13/17 10/14/17 23:59 23:59 23:59 Intake Total 600 / 600 660 / 660 360 / 360 Balance 600 / 600 660 / 660 360 / 360 General: Alert, Oriented x3, Cooperative HEENT: Atraumatic, PERRLA, EOMI, Normocephalic Neck: Supple, No JVD, Negative Carotid Bruits Lungs: Clear to auscultation, Normal air movement Cardiovascular: Regular rate, Normal S1, Normal S2, No murmurs Abdomen: Bowel Sounds Present, Soft, Non Tender Extremities: No edema, Capillary Refill Less than 3 Seconds Skin: No rashes, No breakdown Musculoskeletal: No Tenderness to Palpation of Joints or Extremities, Arthritic Changes Neurological: - - Right facial numbness. Right-sided Jonatan syndrome. subtle Left-sided facial palsy. Mild right lower extremity weakness. Gait incoordination. Psych/Mental Status: Normal Affect, Appropriate Laboratory Results 10/13/17 16:27: POC Glucose 132 H 10/13/17 21:41: POC Glucose 217 H 10/14/17 06:44: POC Glucose 224 H 10/14/17 12:09: POC Glucose 152 H Current Medications Atorvastatin Calcium (Lipitor) 80 mg PO QHS [facility] Last Admin: 10/13/17 21:56 Dose: 80 mg Bisacodyl (Dulcolax) 10 mg RECTAL .PRN X 1 PRN PRN Reason: Constipation Clopidogrel Bisulfate (Plavix) 75 mg PO DAILY [facility] Last Admin: 10/14/17 07:33 Dose: 75 mg Doxazosin Mesylate (Cardura) 2 mg PO DAILY [facility] Last Admin: 10/14/17 07:33 Dose: 2 mg Enoxaparin Sodium (Lovenox) 40 mg SC DAILY@0600 [facility] Last Admin: 10/14/17 06:08 Dose: 40 mg Glipizide (Glucotrol) 5 mg PO DAILY@0800 [facility] Last Admin: 10/14/17 07:33 Dose: 5 mg Insulin Glargine (Lantus (Bkc)) 20 units SC DAILY [facility] Last Admin: 10/14/17 09:02 Dose: 20 u Insulin Human Lispro (Humalog Kwikpen (Bkc)) 0 unit SC ACHS [facility] PRN Reason: Protocol Last Admin: 10/14/17 12:21 Dose: 3 u Insulin Human Lispro (Humalog Kwikpen (Bkc)) 8 unit SC TIDAC [facility] Last Admin: 10/14/17 12:21 Dose: 8 u Lisinopril (Zestril) 5 mg PO DAILY [facility] Last Admin: 10/14/17 07:33 Dose: 5 mg Magnesium Hydroxide (Milk Of Magnesia) 30 ml PO .PRN X 1 PRN PRN Reason: Constipation Last Admin: 10/13/17 16:43 Dose: 30 ml Metformin HCl (Glucophage) 1,000 mg PO DAILY@0800 [facility] Last Admin: 10/14/17 07:33 Dose: 1,000 mg Naproxen (Naprosyn) 500 mg PO DAILY@0800 [facility] Last Admin: 10/14/17 07:33 Dose: 500 mg Ondansetron HCl (Zofran Odt) 4 mg PO Q8H PRN PRN PRN Reason: NAUSEA/VOMITING Last Admin: 10/14/17 06:08 Dose: 4 mg Senna/Docusate Sodium (Senokot-S, Denisa-Colace) 2 tablet PO BID [facility] Last Admin: 10/14/17 07:34 Dose: 2 tablet Medical Necessity - Tobacco Use Smoking Status: Former smoker Assessment/Plan All Active Problems Stroke-like symptoms (Acute) 72 years old male patient admitted to acute rehab with symptoms of right facial droop, right cheek numbness, difficulty swallowing and 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 1. 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 Oropharyngeal dysphagia secondary to medullary infarction: on mechanical soft and nectar thick liquid, speech therapy following. 4. Type 2 diabetes mellitus, BS remain uncontrolled, HgbA1c is 10.9, on glipizide and metformin, Increased Lantus to units daily, continue on Lispro 4 units TID, accucheks with ISS. 5. Hyperlipidemia, on Lipitor. 6. Benign prostatic hypertrophy, on Cardura. 7. DVT prophylaxis - Lovenox SC. Mild constipation: On MiraLAX Laboratory Results 10/13/17 21:41: POC Glucose 217 H 10/14/17 06:44: POC Glucose 224 H 10/14/17 12:09: POC Glucose 152 H 10/14/17 16:29: POC Glucose 156 H Code Visit Inpatient E&M: 51303 [facility] Hosp L2
--- NOTE | 2017-10-14 12:33 | NURSING ---
patient ambulated > 150 ft with walker, gait steady x supervision. patient sitting in dining area eating lunch.
[2017-10-14] MEDS: Bisacodyl 10 MG Suppository RECTAL (14:14)
[2017-10-14 14:34] VITALS: BMI 30.7
[2017-10-14 16:36] LABS: Bedside Glucose 156 mg/dL (70-110)
[2017-10-14] MEDS: Polyethylene Glycol 3350 17 GM PACKET PO (17:47)
[2017-10-14 19:48] VITALS: BP 111/81; PULSE 65; RESP 18; TEMP 36.7; O2SAT 98
[2017-10-14] MEDS: Atorvastatin Calcium 80 MG Tablet PO (20:06)
[2017-10-14 20:21] LABS: Bedside Glucose 209 mg/dL (70-110)
[2017-10-14 22:02] VITALS: BMI 30.7
--- NOTE | 2017-10-15 05:13 | NURSING ---
Reviewed and agree with LPNs fims and handoff
[2017-10-15] MEDS: Enoxaparin 40 MG/0.4 ML Syringe SC (06:33)
[2017-10-15] MEDS: Ondansetron ODT 4 MG Tablet PO (06:33)
[2017-10-15 06:56] LABS: Bedside Glucose 198 mg/dL (70-110)
[2017-10-15] MEDS: Senna/Docusate Sodium 1 Tablet 2 TABLET PO ×2 (07:56→22:09)
[2017-10-15] MEDS: Naproxen 500 MG Tablet PO (07:56)
[2017-10-15] MEDS: Doxazosin 1 MG Tablet 2 MG PO (07:56)
[2017-10-15] MEDS: Lisinopril 5 MG Tablet PO (07:56)
[2017-10-15] MEDS: Polyethylene Glycol 3350 17 GM PACKET PO ×2 (07:56→22:09)
[2017-10-15] MEDS: Clopidogrel Bisulfate 75 MG Tablet PO (07:56)
[2017-10-15] MEDS: glipiZIDE 5 MG Tablet PO (07:56)
[2017-10-15] MEDS: Insulin Lispro 100 UNIT/ML INSULN.PEN 10 UNIT SC ×3 (07:58→17:49)
[2017-10-15] MEDS: Insulin Lispro 100 UNIT/ML INSULN.PEN SC ×4 (07:58→22:14)
[2017-10-15 08:00] VITALS: BP 126/73; PULSE 86; RESP 18; TEMP 36.6; O2SAT 95
[2017-10-15] MEDS: metFORMIN HCl 1,000 MG Tablet 1000 MG PO (08:05)
[2017-10-15 11:36] LABS: Bedside Glucose 156 mg/dL (70-110)
[2017-10-15 14:09] VITALS: BMI 30.7
[2017-10-15 16:41] LABS: Bedside Glucose 155 mg/dL (70-110)
--- NOTE | 2017-10-15 16:51 | PCM.PN.HOSP ---
Subjective: Denies any complaints. Vitals/I&O's: Vital Signs Temp Pulse Resp BP Pulse Ox 36.6 C 86 18 126/73 H 95 10/15/17 08:00 10/15/17 08:00 10/15/17 08:00 10/15/17 08:00 10/15/17 08:00 Oxygen Delivery Method Room Air Weight: 95.2 kg Body Mass Index (BMI) 30.7 Intake and Output for Last 24 Hours 10/13/17 10/14/17 10/15/17 23:59 23:59 23:59 Intake Total 660 / 660 600 / 600 680 / 680 Balance 660 / 660 600 / 600 680 / 680 General: Alert, No apparent distress, - - up in chair. afebrile. HEENT: Atraumatic, Normocephalic Oral: Moist Mucosa, No Gingival or Mucosal Lesions/ Ulcerations Neck: No Nodes, Thyroid Normal Size and Texture Lungs: Clear to auscultation, Normal air movement, No rhonchi, No wheeze Cardiovascular: Regular rate, Regular Rhythm, Normal S1, Normal S2, No murmurs Abdomen: Bowel Sounds Present, Soft, Non Tender, Non-Distended, No Hepato-splenomegaly Extremities: No edema, No Calf Tenderness Laboratory Results 10/14/17 20:03: POC Glucose 209 H 10/15/17 06:32: POC Glucose 198 H 10/15/17 11:32: POC Glucose 156 H 10/15/17 16:23: POC Glucose 155 H Current Medications Atorvastatin Calcium (Lipitor) 80 mg PO QHS [facility] Last Admin: 10/14/17 20:06 Dose: 80 mg Bisacodyl (Dulcolax) 10 mg RECTAL .PRN X 1 PRN PRN Reason: Constipation Last Admin: 10/14/17 14:14 Dose: 10 mg Clopidogrel Bisulfate (Plavix) 75 mg PO DAILY [facility] Last Admin: 10/15/17 07:56 Dose: 75 mg Doxazosin Mesylate (Cardura) 2 mg PO DAILY [facility] Last Admin: 10/15/17 07:56 Dose: 2 mg Enoxaparin Sodium (Lovenox) 40 mg SC DAILY@0600 [facility] Last Admin: 10/15/17 06:33 Dose: 40 mg Glipizide (Glucotrol) 5 mg PO DAILY@0800 [facility] Last Admin: 10/15/17 07:56 Dose: 5 mg Insulin Glargine (Lantus (Bkc)) 23 units SC DAILY [facility] Last Admin: 10/15/17 10:53 Dose: 23 u Insulin Human Lispro (Humalog Kwikpen (Bkc)) 0 unit SC ACHS [facility] PRN Reason: Protocol Last Admin: 10/15/17 12:16 Dose: 3 u Insulin Human Lispro (Humalog Kwikpen (Bkc)) 10 unit SC TIDAC [facility] Last Admin: 10/15/17 12:16 Dose: 10 unit Lisinopril (Zestril) 5 mg PO DAILY [facility] Last Admin: 10/15/17 07:56 Dose: 5 mg Magnesium Hydroxide (Milk Of Magnesia) 30 ml PO .PRN X 1 PRN PRN Reason: Constipation Last Admin: 10/13/17 16:43 Dose: 30 ml Metformin HCl (Glucophage) 1,000 mg PO DAILY@0800 [facility] Last Admin: 10/15/17 08:05 Dose: 1,000 mg Naproxen (Naprosyn) 500 mg PO DAILY@0800 [facility] Last Admin: 10/15/17 07:56 Dose: 500 mg Ondansetron HCl (Zofran Odt) 4 mg PO Q8H PRN PRN PRN Reason: NAUSEA/VOMITING Last Admin: 10/15/17 06:33 Dose: 4 mg Polyethylene Glycol (Miralax) 17 gm PO BID [facility] Last Admin: 10/15/17 07:56 Dose: 17 gm Senna/Docusate Sodium (Senokot-S, Denisa-Colace) 2 tablet PO BID [facility] Last Admin: 10/15/17 07:56 Dose: 2 tablet Medical Necessity - Tobacco Use Smoking Status: Former smoker Assessment/Plan All Active Problems Stroke-like symptoms (Acute) 1. acute right medullary CVA plavix, statin continue PT OT 2. Dysphagia mech soft diet with nectar thickened liquids continue ST 3. DM2 mediocre control (150s-190s) continue lantus 23 qday, humalog 10 QAC, humalog SSI, glipizide, and metformin consider increasing insulin dosings if BGTs are still elevated monitor for hypoglycemia given concomitant use of glipizide and metformin 4. DVT proph: LMWH. Code Visit Inpatient E&M: 37636 Subs Hosp L2
[2017-10-15 22:00] VITALS: BP 111/63; PULSE 93; RESP 16; TEMP 36.7; O2SAT 96; BMI 30.7
[2017-10-15] MEDS: Atorvastatin Calcium 80 MG Tablet PO (22:09)
[2017-10-15 23:15] LABS: Bedside Glucose 190 mg/dL (70-110)
--- NOTE | 2017-10-16 03:18 | NURSING ---
Reviewed and agree with ASSISTANT DESIGNER documentation and FIMs charting
[2017-10-16] MEDS: Enoxaparin 40 MG/0.4 ML Syringe SC (05:10)
[2017-10-16] MEDS: Ondansetron ODT 4 MG Tablet PO (05:10)
[2017-10-16 07:05] LABS: Bedside Glucose 182 mg/dL (70-110)
[2017-10-16] MEDS: Polyethylene Glycol 3350 17 GM PACKET PO (07:35)
[2017-10-16] MEDS: Lisinopril 5 MG Tablet PO (07:35)
[2017-10-16] MEDS: glipiZIDE 5 MG Tablet PO (07:36)
[2017-10-16] MEDS: Senna/Docusate Sodium 1 Tablet 2 TABLET PO ×2 (07:36→22:08)
[2017-10-16] MEDS: Naproxen 500 MG Tablet PO (07:36)
[2017-10-16] MEDS: metFORMIN HCl 1,000 MG Tablet 1000 MG PO (07:36)
[2017-10-16] MEDS: Insulin Lispro 100 UNIT/ML INSULN.PEN SC ×2 (07:38→22:12)
[2017-10-16] MEDS: Insulin Lispro 100 UNIT/ML INSULN.PEN 10 UNIT SC ×3 (07:38→17:35)
[2017-10-16] MEDS: Clopidogrel Bisulfate 75 MG Tablet PO (07:39)
[2017-10-16] MEDS: Doxazosin 1 MG Tablet 2 MG PO (07:39)
[2017-10-16 10:00] VITALS: BP 114/65; PULSE 93; RESP 18; TEMP 36.4; O2SAT 94
[2017-10-16 11:25] LABS: Bedside Glucose 102 mg/dL (70-110)
--- NOTE | 2017-10-16 11:53 | PCM.PN.NEU ---
Subjective: No new complaints. Tolerating therapies. No GI or complaints. Reports nausea is eliminated with the use of Zofran in the morning. - Physical Exam General: Alert, Oriented x3, Cooperative, No apparent distress Psych/Mental Status: Normal Affect Vital Signs Temp Pulse Resp BP Pulse Ox 36.4 C L 93 18 114/65 94 10/16/17 10:00 10/16/17 10:00 10/16/17 10:00 10/16/17 10:00 10/16/17 10:00 Oxygen Delivery Method Room Air Weight: 95.2 kg Body Mass Index (BMI) 30.7 Intake and Output for Last 24 Hours 10/14/17 10/15/17 10/16/17 23:59 23:59 23:59 Intake Total 600 / 600 1120 / 1120 Balance 600 / 600 1120 / 1120 POC Glucose 10/16/17 10/16/17 10/15/17 11:13 06:55 22:01 POC Glucose 102 182 H 190 H 10/15/17 16:23 POC Glucose 155 H Current Medications Generic Name Dose Route Start Last Admin Trade Name Freq PRN Reason Stop Dose Admin Atorvastatin Calcium 80 mg 10/05/17 22:00 10/15/17 22:09 Lipitor PO 80 mg QHS [facility] Administration Bisacodyl 10 mg 10/05/17 16:33 10/14/17 14:14 Dulcolax RECTAL 10 mg .PRN X 1 PRN Administration Constipation Clopidogrel Bisulfate 75 mg 10/06/17 10:00 10/16/17 07:39 Plavix PO 75 mg DAILY [facility] Administration Doxazosin Mesylate 2 mg 10/06/17 10:00 10/16/17 07:39 Cardura PO 2 mg DAILY [facility] Administration Enoxaparin Sodium 40 mg 10/06/17 06:00 10/16/17 05:10 Lovenox SC 40 mg DAILY@0600 [facility] Administration Glipizide 5 mg 10/06/17 08:00 10/16/17 07:36 Glucotrol PO 5 mg DAILY@0800 [facility] Administration Insulin Glargine 23 units 10/14/17 16:58 10/16/17 11:10 Lantus ([facility]) SC 23 u DAILY [facility] Administration Insulin Human Lispro 0 unit 10/05/17 16:32 10/16/17 11:13 Humalog Kwikpen ([facility]) SC Not Given ACHS [facility] Protocol Insulin Human Lispro 10 unit 10/14/17 16:52 10/16/17 07:38 Humalog [place]an ([facility]) SC 10 unit TIDAC [facility] Administration Lisinopril 5 mg 10/06/17 10:00 10/16/17 07:35 Zestril PO 5 mg DAILY [facility] Administration Magnesium Hydroxide 30 ml 10/05/17 16:33 10/13/17 16:43 Milk Of Magnesia PO 30 ml .PRN X 1 PRN Administration Constipation Metformin HCl 1,000 mg 10/06/17 08:00 10/16/17 07:36 Glucophage PO 1,000 mg DAILY@0800 [facility] Administration Naproxen 500 mg 10/06/17 08:00 10/16/17 07:36 Naprosyn PO 500 mg DAILY@0800 [facility] Administration Ondansetron HCl 4 mg 10/09/17 12:26 10/16/17 05:10 Zofran Odt PO 4 mg Q8H PRN PRN Administration NAUSEA/VOMITING Polyethylene Glycol 17 gm 10/14/17 14:33 10/16/17 07:35 Miralax PO 17 gm BID [facility] Administration Senna/Docusate Sodium 2 tablet 10/05/17 22:00 10/16/17 07:36 Senokot-S, Denisa-Colace PO 2 tablet BID [facility] Administration Medical Necessity - Tobacco Use Smoking Status: Former smoker Assessment/Plan All Active Problems Stroke-like symptoms (Acute) 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 Goal of rehab is christian of prior level of functional independence. Physical therapy for gait and balance Occupational Therapy for ADLs Blood pressure control Sliding scale insulin DVT prophylaxis: Lovenox Bowel protocol As needed analgesics Continue Zofran for nausea, improved Stroke prevention: Statin therapy, blood pressure control, Plavix
[2017-10-16 14:26] VITALS: BMI 30.7
--- NOTE | 2017-10-16 14:34 | CASEMGMT ---
Insurance Continued stay approved with next update due on 10/18/17. Auth#[id number] Gabby HARRIS, ERP DEVELOPER
[2017-10-16 17:15] LABS: Bedside Glucose 139 mg/dL (70-110)
[2017-10-16 19:34] VITALS: BP 102/59; PULSE 100; RESP 16; TEMP 36.7; O2SAT 97
[2017-10-16 21:30] VITALS: BMI 30.7
[2017-10-16 21:35] VITALS: PULSE 100; RESP 16; O2SAT 97
[2017-10-16] MEDS: Atorvastatin Calcium 80 MG Tablet PO (22:08)
[2017-10-16 22:26] LABS: Bedside Glucose 157 mg/dL (70-110)
--- NOTE | 2017-10-17 00:30 | NURSING ---
Reviewed and agree with MATTRESS WEAVER documentation and FIMs charting.
[2017-10-17] MEDS: Enoxaparin 40 MG/0.4 ML Syringe SC (04:57)
[2017-10-17] MEDS: Ondansetron ODT 4 MG Tablet PO (04:57)
[2017-10-17 07:01] LABS: Bedside Glucose 204 mg/dL (70-110)
[2017-10-17] MEDS: Clopidogrel Bisulfate 75 MG Tablet PO (08:41)
[2017-10-17] MEDS: Doxazosin 1 MG Tablet 2 MG PO (08:41)
[2017-10-17] MEDS: metFORMIN HCl 1,000 MG Tablet 1000 MG PO (08:41)
[2017-10-17] MEDS: glipiZIDE 5 MG Tablet PO (08:41)
[2017-10-17] MEDS: Naproxen 500 MG Tablet PO (08:42)
[2017-10-17] MEDS: Insulin Lispro 100 UNIT/ML INSULN.PEN SC (08:43)
[2017-10-17] MEDS: Insulin Lispro 100 UNIT/ML INSULN.PEN 10 UNIT SC ×3 (08:43→17:26)
[2017-10-17] MEDS: Lisinopril 5 MG Tablet PO (08:45)
[2017-10-17 08:46] VITALS: BP 109/65; PULSE 100; RESP 16; TEMP 36.7; O2SAT 96
[2017-10-17] MEDS: Senna/Docusate Sodium 1 Tablet 2 TABLET PO ×2 (08:48→20:48)
[2017-10-17 11:40] LABS: Bedside Glucose 143 mg/dL (70-110)
[2017-10-17 14:25] VITALS: BMI 30.7
[2017-10-17 17:10] LABS: Bedside Glucose 91 mg/dL (70-110)
[2017-10-17 20:43] VITALS: BP 122/75; PULSE 88; RESP 18; TEMP 36.9; O2SAT 96
[2017-10-17] MEDS: Atorvastatin Calcium 80 MG Tablet PO (20:47)
[2017-10-17 22:26] LABS: Bedside Glucose 138 mg/dL (70-110)
[2017-10-18 01:05] VITALS: BMI 30.7
--- NOTE | 2017-10-18 01:56 | NURSING ---
Reviewed and agree with GRADUATE RESEARCH ASSISTANT documentation and FIMs charting.
[2017-10-18] MEDS: Enoxaparin 40 MG/0.4 ML Syringe SC (05:43)
[2017-10-18] MEDS: Ondansetron ODT 4 MG Tablet PO (05:43)
[2017-10-18 07:16] LABS: Bedside Glucose 193 mg/dL (70-110)
[2017-10-18] MEDS: glipiZIDE 5 MG Tablet PO (07:50)
[2017-10-18] MEDS: Clopidogrel Bisulfate 75 MG Tablet PO (07:50)
[2017-10-18] MEDS: Doxazosin 1 MG Tablet 2 MG PO (07:50)
[2017-10-18] MEDS: Senna/Docusate Sodium 1 Tablet 2 TABLET PO ×2 (07:50→22:46)
[2017-10-18] MEDS: Lisinopril 5 MG Tablet PO (07:50)
[2017-10-18] MEDS: Insulin Lispro 100 UNIT/ML INSULN.PEN SC ×2 (07:50→22:47)
[2017-10-18] MEDS: Naproxen 500 MG Tablet PO (07:50)
[2017-10-18] MEDS: metFORMIN HCl 1,000 MG Tablet 1000 MG PO (07:50)
[2017-10-18] MEDS: Insulin Lispro 100 UNIT/ML INSULN.PEN 10 UNIT SC ×3 (07:51→17:59)
[2017-10-18 08:13] VITALS: BP 115/61; PULSE 68; RESP 18; TEMP 36.6; O2SAT 94
--- NOTE | 2017-10-18 10:19 | PCM.PN.NEU ---
Subjective: Patient staffed in team meeting. Family is present, questions are answered. He is standby assistance with physical therapy and set up/supervision with occupational therapy measures. Swallowing has improved per speech therapy. He lives alone in a 1 floor apartment with 3 steps but he does have some years to discharge including his bathroom set up. Apparently he has a clawfoot tub and a very low toilet. Some strategies were discussed during team meeting. Plan to discharge to home on Sunday. - Physical Exam General: Alert, Oriented x3 Psych/Mental Status: Normal Affect Vital Signs Temp Pulse Resp BP Pulse Ox 36.6 C 68 18 115/61 94 10/18/17 08:13 10/18/17 08:13 10/18/17 08:13 10/18/17 08:13 10/18/17 08:13 Oxygen Delivery Method Room Air Weight: 97 kg Body Mass Index (BMI) 30.7 Intake and Output for Last 24 Hours 10/16/17 10/17/17 10/18/17 23:59 23:59 23:59 Intake Total 220 / 220 660 / 660 240 / 240 Output Total 200 / 200 Balance 220 / 220 460 / 460 240 / 240 POC Glucose 10/18/17 10/17/17 10/17/17 07:04 20:46 17:07 POC Glucose 193 H 138 H 91 10/17/17 11:26 POC Glucose 143 H Current Medications Generic Name Dose Route Start Last Admin Trade Name Freq PRN Reason Stop Dose Admin Atorvastatin Calcium 80 mg 10/05/17 22:00 10/17/17 20:47 Lipitor PO 80 mg QHS TEETEE Administration Bisacodyl 10 mg 10/05/17 16:33 10/14/17 14:14 Dulcolax RECTAL 10 mg .PRN X 1 PRN Administration Constipation Clopidogrel Bisulfate 75 mg 10/06/17 10:00 10/18/17 07:50 Plavix PO 75 mg DAILY TEETEE Administration Doxazosin Mesylate 2 mg 10/06/17 10:00 10/18/17 07:50 Cardura PO 2 mg DAILY TEETEE Administration Enoxaparin Sodium 40 mg 10/06/17 06:00 10/18/17 05:43 Lovenox SC 40 mg DAILY@0600 TEETEE Administration Glipizide 5 mg 10/06/17 08:00 10/18/17 07:50 Glucotrol PO 5 mg DAILY@0800 TEETEE Administration Insulin Glargine 23 units 10/14/17 16:58 10/17/17 08:44 Lantus ([facility]) SC 23 u DAILY TEETEE Administration Insulin Human Lispro 0 unit 10/05/17 16:32 10/18/17 07:50 Humalog Kwikpen ([facility]) SC 3 u ACHS TEETEE Administration Protocol Insulin Human Lispro 10 unit 10/14/17 16:52 10/18/17 07:51 Humalog Kwikpen ([facility]) SC 10 unit TIDAC TEETEE Administration Lisinopril 5 mg 10/06/17 10:00 10/18/17 07:50 Zestril PO 5 mg DAILY TEETEE Administration Magnesium Hydroxide 30 ml 10/05/17 16:33 10/13/17 16:43 Milk Of Magnesia PO 30 ml .PRN X 1 PRN Administration Constipation Metformin HCl 1,000 mg 10/06/17 08:00 10/18/17 07:50 Glucophage PO 1,000 mg DAILY@0800 [facility] Administration Naproxen 500 mg 10/06/17 08:00 10/18/17 07:50 Naprosyn PO 500 mg DAILY@0800 TEETEE Administration Ondansetron HCl 4 mg 10/09/17 12:26 10/18/17 05:43 Zofran Odt PO 4 mg Q8H PRN PRN Administration NAUSEA/VOMITING Polyethylene Glycol 17 gm 10/14/17 14:33 10/18/17 07:56 Miralax PO Not Given BID [facility] Senna/Docusate Sodium 2 tablet 10/05/17 22:00 10/18/17 07:50 Senokot-S, Denisa-Colace PO 2 tablet BID TEETEE Administration Medical Necessity - Tobacco Use Smoking Status: Former smoker Assessment/Plan All Active Problems Stroke-like symptoms (Acute) 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 Goal of rehab is judaism of prior level of functional independence. Plan to discharge to home on Sunday. Physical therapy for gait and balance Occupational Therapy for ADLs Blood pressure control Sliding scale insulin DVT prophylaxis: Lovenox Bowel protocol As needed analgesics Continue Zofran for nausea, improved Stroke prevention: Statin therapy, blood pressure control, Plavix Outpatient follow-up in 1-2 weeks No driving for now but will likely be cleared for driving due to his current status and level of improvement.
--- NOTE | 2017-10-18 10:22 | PN.NEURO_ITS ---
Subjective: Patient staffed in team meeting. Family is present, questions are answered. He is standby assistance with physical therapy and set up/supervision with occupational therapy measures. Swallowing has improved per speech therapy. He lives alone in a 1 floor apartment with 3 steps but he does have some years to discharge including his bathroom set up. Apparently he has a clawfoot tub and a very low toilet. Some strategies were discussed during team meeting. Plan to discharge to home on Sunday. - Physical Exam General: Alert, Oriented x3 Psych/Mental Status: Normal Affect Vital Signs Temp Pulse Resp BP Pulse Ox 36.6 C 68 18 115/61 94 10/18/17 08:13 10/18/17 08:13 10/18/17 08:13 10/18/17 08:13 10/18/17 08:13 Oxygen Delivery Method Room Air Weight: 97 kg Body Mass Index (BMI) 30.7 Intake and Output for Last 24 Hours 10/16/17 10/17/17 10/18/17 23:59 23:59 23:59 Intake Total 220 / 220 660 / 660 240 / 240 Output Total 200 / 200 Balance 220 / 220 460 / 460 240 / 240 POC Glucose 10/18/17 10/17/17 10/17/17 07:04 20:46 17:07 POC Glucose 193 H 138 H 91 10/17/17 11:26 POC Glucose 143 H Current Medications Generic Name Dose Route Start Last Admin Trade Name Freq PRN Reason Stop Dose Admin Atorvastatin Calcium 80 mg 10/05/17 22:00 10/17/17 20:47 Lipitor PO 80 mg QHS TEETEE Administration Bisacodyl 10 mg 10/05/17 16:33 10/14/17 14:14 Dulcolax RECTAL 10 mg .PRN X 1 PRN Administration Constipation Clopidogrel Bisulfate 75 mg 10/06/17 10:00 10/18/17 07:50 Plavix PO 75 mg DAILY TEETEE Administration Doxazosin Mesylate 2 mg 10/06/17 10:00 10/18/17 07:50 Cardura PO 2 mg DAILY TEETEE Administration Enoxaparin Sodium 40 mg 10/06/17 06:00 10/18/17 05:43 Lovenox SC 40 mg DAILY@0600 TEETEE Administration Glipizide 5 mg 10/06/17 08:00 10/18/17 07:50 Glucotrol PO 5 mg DAILY@0800 TEETEE Administration Insulin Glargine 23 units 10/14/17 16:58 10/17/17 08:44 Lantus ([facility]) SC 23 u DAILY TEETEE Administration Insulin Human Lispro 0 unit 10/05/17 16:32 10/18/17 07:50 Humalog Kwikpen ([facility]) SC 3 u ACHS TEETEE Administration Protocol Insulin Human Lispro 10 unit 10/14/17 16:52 10/18/17 07:51 Humalog Kwikpen ([facility]) SC 10 unit TIDAC TEETEE Administration Lisinopril 5 mg 10/06/17 10:00 10/18/17 07:50 Zestril PO 5 mg DAILY TEETEE Administration Magnesium Hydroxide 30 ml 10/05/17 16:33 10/13/17 16:43 Milk Of Magnesia PO 30 ml .PRN X 1 PRN Administration Constipation Metformin HCl 1,000 mg 10/06/17 08:00 10/18/17 07:50 Glucophage PO 1,000 mg DAILY@0800 [facility] Administration Naproxen 500 mg 10/06/17 08:00 10/18/17 07:50 Naprosyn PO 500 mg DAILY@0800 TEETEE Administration Ondansetron HCl 4 mg 10/09/17 12:26 10/18/17 05:43 Zofran Odt PO 4 mg Q8H PRN PRN Administration NAUSEA/VOMITING Polyethylene Glycol 17 gm 10/14/17 14:33 10/18/17 07:56 Miralax PO Not Given BID [facility] Senna/Docusate Sodium 2 tablet 10/05/17 22:00 10/18/17 07:50 Senokot-S, Denisa-Colace PO 2 tablet BID TEETEE Administration Medical Necessity - Tobacco Use Smoking Status: Former smoker Assessment/Plan All Active Problems Stroke-like symptoms (Acute) 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 Goal of rehab is advent of prior level of functional independence. Plan to discharge to home on Sunday. Physical therapy for gait and balance Occupational Therapy for ADLs Blood pressure control Sliding scale insulin DVT prophylaxis: Lovenox Bowel protocol As needed analgesics Continue Zofran for nausea, improved Stroke prevention: Statin therapy, blood pressure control, Plavix Outpatient follow-up in 1-2 weeks No driving for now but will likely be cleared for driving due to his current status and level of improvement.
--- NOTE | 2017-10-18 11:16 | CASEMGMT ---
Team meeting held. Patient present as well as patient family. Collaborating with team, discharge date has been set for 10/22/17 pending continued insurance approval. Patient aware that insurance update is due on this day. Patient plans to discharge to home alone where patient does have limited support. Patient family is working on setting up a handrail and improving the bathroom safety set up. Patient family reporting that a Sunday discharge will give the family enough time to get everything set up. Patient reporting to need a cane at time of discharge and is requesting for cane to be set up through [facility]. This social worker psychiatric communicating that physical and occupational therapy as well as nursing are recommending for patient to continue with services within the home. Patient is agreeable to recommendation and also requesting for a home health aide to be set up. Patient requesting for home health services to be set up through [facility] ([facility] Support given. Will continue to follow to set up above mentioned services. Proposed discharge date: 10/22/17 PLAN: Discharge to home alone with home health services. Gabby HARRIS, BEAM SEALER
--- NOTE | 2017-10-18 11:21 | CASEMGMT ---
Insurance Clinical information faxed. Pending continued stay approval at this time. Auth#[id number] Gabby HARRIS, TRANSIT DRIVER
[2017-10-18 11:51] LABS: Bedside Glucose 99 mg/dL (70-110)
--- NOTE | 2017-10-18 13:23 | PCM.PN.HOSP ---
Subjective: Patient was seen and examined. Denies any new complaints. Denies any headache or dizziness or palpitations of fever or chills. Objective: General: Alert, Oriented x3, Cooperative, No apparent distress HEENT: Atraumatic, PERRLA, EOMI, Normocephalic Oral: Moist Mucosa Neck: Supple Lungs: Clear to auscultation, Normal air movement Cardiovascular: Regular rate, Regular Rhythm, Normal S1, Normal S2, No murmurs Abdomen: Bowel Sounds Present, Soft, Non Tender, Non-Distended, No Hepato-splenomegaly Extremities: No edema Skin: No rashes, No breakdown Musculoskeletal: No Tenderness to Palpation of Joints or Extremities Lymphatic: No Cervical, Supraclavicular, or Inguinal Adenopathy Neurological: Neuro grossly intact, - - Slight right ptsosis, otherwise CN II-XII intact, power is 5/5, tone is normal Psych/Mental Status: Normal Affect, Appropriate Vitals/I&O's: Vital Signs Temp Pulse Resp BP Pulse Ox 97.9 F 68 18 115/61 94 10/18/17 08:13 10/18/17 08:13 10/18/17 08:13 10/18/17 08:13 10/18/17 08:13 Oxygen Delivery Method Room Air Weight: 97 kg Body Mass Index (BMI) 30.7 Intake and Output for Last 24 Hours 10/16/17 10/17/17 10/18/17 23:59 23:59 23:59 Intake Total 220 / 220 660 / 660 240 / 240 Output Total 200 / 200 Balance 220 / 220 460 / 460 240 / 240 Laboratory Results 10/17/17 17:07: POC Glucose 91 10/17/17 20:46: POC Glucose 138 H 10/18/17 07:04: POC Glucose 193 H 10/18/17 11:46: POC Glucose 99 Current Medications Atorvastatin Calcium (Lipitor) 80 mg PO QHS [facility] Last Admin: 10/17/17 20:47 Dose: 80 mg Bisacodyl (Dulcolax) 10 mg RECTAL .PRN X 1 PRN PRN Reason: Constipation Last Admin: 10/14/17 14:14 Dose: 10 mg Clopidogrel Bisulfate (Plavix) 75 mg PO DAILY [facility] Last Admin: 10/18/17 07:50 Dose: 75 mg Doxazosin Mesylate (Cardura) 2 mg PO DAILY [facility] Last Admin: 10/18/17 07:50 Dose: 2 mg Enoxaparin Sodium (Lovenox) 40 mg SC DAILY@0600 [facility] Last Admin: 10/18/17 05:43 Dose: 40 mg Glipizide (Glucotrol) 5 mg PO DAILY@0800 [facility] Last Admin: 10/18/17 07:50 Dose: 5 mg Insulin Glargine (Lantus ([facility])) 23 units SC DAILY [facility] Last Admin: 10/18/17 12:02 Dose: 23 u Insulin Human Lispro (Humalog Kwikpen ([facility])) 0 unit SC ACHS [facility] PRN Reason: Protocol Last Admin: 10/18/17 11:51 Dose: Not Given Insulin Human Lispro (Humalog Kwikpen ([facility])) 10 unit SC TIDAC [facility] Last Admin: 10/18/17 12:03 Dose: 10 unit Lisinopril (Zestril) 5 mg PO DAILY [facility] Last Admin: 10/18/17 07:50 Dose: 5 mg Magnesium Hydroxide (Milk Of Magnesia) 30 ml PO .PRN X 1 PRN PRN Reason: Constipation Last Admin: 10/13/17 16:43 Dose: 30 ml Metformin HCl (Glucophage) 1,000 mg PO DAILY@0800 [facility] Last Admin: 10/18/17 07:50 Dose: 1,000 mg Naproxen (Naprosyn) 500 mg PO DAILY@0800 [facility] Last Admin: 10/18/17 07:50 Dose: 500 mg Ondansetron HCl (Zofran Odt) 4 mg PO Q8H PRN PRN PRN Reason: NAUSEA/VOMITING Last Admin: 10/18/17 05:43 Dose: 4 mg Polyethylene Glycol (Miralax) 17 gm PO BID [facility] Last Admin: 10/18/17 07:56 Dose: Not Given Senna/Docusate Sodium (Senokot-S, Denisa-Colace) 2 tablet PO BID [facility] Last Admin: 10/18/17 07:50 Dose: 2 tablet Medical Necessity - Tobacco Use Smoking Status: Former smoker Assessment/Plan All Active Problems Stroke-like symptoms (Acute) 72 years old male patient admitted to acute rehab with symptoms of right facial droop, right cheek numbness, difficulty swallowing and 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 1. 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 Dysphagia, speech therapy following. 3. Type 2 diabetes mellitus, blood sugars are better controlled now, HgbA1c is 10.9, on glipizide and metformin, Lantus 23 units daily as well as 10 units 3 times daily 4. Hyperlipidemia, on Lipitor. 5. Benign prostatic hypertrophy, on Cardura. 6. DVT prophylaxis - Lovenox SC. Code Visit Inpatient E&M: 97076 Subs Hosp L2
[2017-10-18 15:04] VITALS: BMI 30.7
[2017-10-18 16:40] LABS: Bedside Glucose 94 mg/dL (70-110)
[2017-10-18 19:47] VITALS: BP 106/64; PULSE 103; RESP 17; TEMP 36.9; O2SAT 97
[2017-10-18 21:25] LABS: Bedside Glucose 157 mg/dL (70-110)
[2017-10-18] MEDS: Atorvastatin Calcium 80 MG Tablet PO (22:47)
[2017-10-19] MEDS: Ondansetron ODT 4 MG Tablet PO (04:09)
[2017-10-19 05:00] VITALS: BMI 30.7
[2017-10-19] MEDS: Enoxaparin 40 MG/0.4 ML Syringe SC (05:19)
[2017-10-19 06:21] LABS: Bedside Glucose 175 mg/dL (70-110)
[2017-10-19 07:38] VITALS: BP 129/68; PULSE 86; RESP 16; TEMP 36.9; O2SAT 95
[2017-10-19] MEDS: Naproxen 500 MG Tablet PO (08:23)
[2017-10-19] MEDS: metFORMIN HCl 1,000 MG Tablet 1000 MG PO (08:23)
[2017-10-19] MEDS: Doxazosin 1 MG Tablet 2 MG PO (08:23)
[2017-10-19] MEDS: Clopidogrel Bisulfate 75 MG Tablet PO (08:23)
[2017-10-19] MEDS: Senna/Docusate Sodium 1 Tablet 2 TABLET PO ×2 (08:23→20:46)
[2017-10-19] MEDS: Lisinopril 5 MG Tablet PO (08:23)
[2017-10-19] MEDS: glipiZIDE 5 MG Tablet PO (08:23)
[2017-10-19] MEDS: Insulin Lispro 100 UNIT/ML INSULN.PEN 10 UNIT SC ×3 (08:24→17:11)
[2017-10-19] MEDS: Insulin Lispro 100 UNIT/ML INSULN.PEN SC ×2 (08:24→20:44)
--- NOTE | 2017-10-19 10:14 | PCM.PN.NEU ---
Subjective: No new complaints. Tolerating therapies. No GI or complaints. Plans to go home on Sunday. - Physical Exam General: Alert, Oriented x3, Cooperative, No apparent distress Psych/Mental Status: Normal Affect Vital Signs Temp Pulse Resp BP Pulse Ox 36.9 C 86 16 129/68 H 95 10/19/17 07:38 10/19/17 07:38 10/19/17 07:38 10/19/17 07:38 10/19/17 07:38 Oxygen Delivery Method Room Air Weight: 97 kg Body Mass Index (BMI) 30.7 Intake and Output for Last 24 Hours 10/17/17 10/18/17 10/19/17 23:59 23:59 23:59 Intake Total 660 / 660 480 / 480 240 / 240 Output Total 200 / 200 Balance 460 / 460 480 / 480 240 / 240 POC Glucose 10/19/17 10/18/17 10/18/17 06:17 21:20 16:35 POC Glucose 175 H 157 H 94 10/18/17 11:46 POC Glucose 99 Current Medications Generic Name Dose Route Start Last Admin Trade Name Freq PRN Reason Stop Dose Admin Atorvastatin Calcium 80 mg 10/05/17 22:00 10/18/17 22:47 Lipitor PO 80 mg QHS TEETEE Administration Bisacodyl 10 mg 10/05/17 16:33 10/14/17 14:14 Dulcolax RECTAL 10 mg .PRN X 1 PRN Administration Constipation Clopidogrel Bisulfate 75 mg 10/06/17 10:00 10/19/17 08:23 Plavix PO 75 mg DAILY TEETEE Administration Doxazosin Mesylate 2 mg 10/06/17 10:00 10/19/17 08:23 Cardura PO 2 mg DAILY TEETEE Administration Enoxaparin Sodium 40 mg 10/06/17 06:00 10/19/17 05:19 Lovenox SC 40 mg DAILY@0600 TEETEE Administration Glipizide 5 mg 10/06/17 08:00 10/19/17 08:23 Glucotrol PO 5 mg DAILY@0800 TEETEE Administration Insulin Glargine 23 units 10/14/17 16:58 10/18/17 12:02 Lantus ([facility]) SC 23 u DAILY TEETEE Administration Insulin Human Lispro 0 unit 10/05/17 16:32 10/19/17 08:24 Humalog Kwikpen ([facility]) SC 3 u ACHS TEETEE Administration Protocol Insulin Human Lispro 10 unit 10/14/17 16:52 10/19/17 08:24 Humalog Kannan ([facility]) SC 10 unit TIDAC TEETEE Administration Lisinopril 5 mg 10/06/17 10:00 10/19/17 08:23 Zestril PO 5 mg DAILY TEETEE Administration Magnesium Hydroxide 30 ml 10/05/17 16:33 10/13/17 16:43 Milk Of Magnesia PO 30 ml .PRN X 1 PRN Administration Constipation Metformin HCl 1,000 mg 10/06/17 08:00 10/19/17 08:23 Glucophage PO 1,000 mg DAILY@0800 TEETEE Administration Naproxen 500 mg 10/06/17 08:00 10/19/17 08:23 Naprosyn PO 500 mg DAILY@0800 TEETEE Administration Ondansetron HCl 4 mg 10/09/17 12:26 10/19/17 04:09 Zofran Odt PO 4 mg Q8H PRN PRN Administration NAUSEA/VOMITING Polyethylene Glycol 17 gm 10/14/17 14:33 10/19/17 08:16 Miralax PO Not Given BID [facility] Senna/Docusate Sodium 2 tablet 10/05/17 22:00 10/19/17 08:23 Senokot-S, Denisa-Colace PO 2 tablet BID TEETEE Administration Medical Necessity - Tobacco Use Smoking Status: Former smoker Assessment/Plan All Active Problems Stroke-like symptoms (Acute) 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 Goal of rehab is latter day of prior level of functional independence. Plan to discharge to home on Sunday. Physical therapy for gait and balance Occupational Therapy for ADLs Blood pressure control Sliding scale insulin DVT prophylaxis: Lovenox Bowel protocol As needed analgesics Continue Zofran for nausea, improved Stroke prevention: Statin therapy, blood pressure control, Plavix Outpatient follow-up in 1-2 weeks No driving for now but will likely be cleared for driving due to his current status and level of improvement.
--- NOTE | 2017-10-19 10:31 | DCINST_ITS ---
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 Reason(s) for Visit for Discharge Instructions: Debility due to stroke You will use the following diet at home:: Calorie/Carbohydrate Controlled ( specify 1200, 1400, etc) - 1800-calorie ADA diet Your food should be the consistency of: Regular Your liquids should be the consistency of: Regular/Thin Discharge Activity: Return to Normal Activity, May Not Drive Weight Bearing Status: Weight bearing as tolerated Lifting Restrictions: 10 pounds Allergies/Adverse Reactions: Allergies No Known Allergies Allergy (Verified 10/02/17 21:22) Medications to take at Discharge Terazosin HCl 2 mg PO DAILY 10/02/17 Atorvastatin Calcium [Lipitor] 80 mg PO QHS #30 tab 10/19/17 Bisacodyl [Dulcolax] 10 mg RECTAL .PRN X 1 PRN suppos. 10/19/17 Clopidogrel Bisulfate [Plavix] 75 mg PO DAILY #30 tab 10/19/17 Insulin Glargine [Lantus SoloStar Pen] 23 units SC DAILY #30 pen 10/19/17 Insulin Lispro [Humalog KwikPen] 10 unit SC TIDAC #90 insuln.pen 10/19/17 Lisinopril [Zestril] 5 mg PO DAILY #30 tab 10/19/17 Metformin HCl [Glucophage] 1,000 mg PO DAILY@0800 #30 tab 10/19/17 Naproxen [Naprosyn] 500 mg PO DAILY@0800 #30 tab 10/19/17 Ondansetron [Zofran Odt] 4 mg PO Q8H PRN PRN #90 tab 10/19/17 Senna/Docusate Sodium [Senokot-S] 2 tablet PO BID tablet 10/19/17 glipiZIDE [Glucotrol] 5 mg PO DAILY@0800 #30 tab 10/19/17 The following prescriptions were given: Ondansetron [Zofran Odt] 4 mg PO Q8H PRN PRN #90 tab PRN Reason: NAUSEA/VOMITING Atorvastatin Calcium [Lipitor] 80 mg PO QHS #30 tab Clopidogrel Bisulfate [Plavix] 75 mg PO DAILY #30 tab glipiZIDE [Glucotrol] 5 mg PO DAILY@0800 #30 tab Insulin Glargine [Lantus SoloStar Pen] 23 units SC DAILY #30 pen Insulin Lispro [Humalog KwikPen] 10 unit SC TIDAC #90 insuln.pen Lisinopril [Zestril] 5 mg PO DAILY #30 tab Metformin HCl [Glucophage] 1,000 mg PO DAILY@0800 #30 tab Naproxen [Naprosyn] 500 mg PO DAILY@0800 #30 tab Test Results: Test results from this visit will be discussed in further detail at your follow- up appointment, if applicable. Please Follow Up With: Nafisa Payne NP-C - Please call [phone] for an appointment Proposed Discharge Date: 10/22/17
--- NOTE | 2017-10-19 10:32 | PCM.RU.DC ---
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 10/19/17 Clopidogrel Bisulfate [Plavix] 75 mg PO DAILY #30 tab 10/19/17 Insulin Glargine [Lantus SoloStar Pen] 23 units SC DAILY #30 pen 10/19/17 Insulin Lispro [Humalog KwikPen] 10 unit SC TIDAC #90 insuln.pen 10/19/17 Lisinopril [Zestril] 5 mg PO DAILY #30 tab 10/19/17 Metformin HCl [Glucophage] 1,000 mg PO DAILY@0800 #30 tab 10/19/17 Naproxen [Naprosyn] 500 mg PO DAILY@0800 #30 tab 10/19/17 Ondansetron [Zofran Odt] 4 mg PO Q8H PRN PRN #90 tab 10/19/17 Senna/Docusate Sodium [Senokot-S] 2 tablet PO BID tablet 10/19/17 glipiZIDE [Glucotrol] 5 mg PO DAILY@0800 #30 tab 10/19/17 Following Prescrptions Were Given to Patient: Ondansetron [Zofran Odt] 4 mg PO Q8H PRN PRN #90 tab PRN Reason: NAUSEA/VOMITING Atorvastatin Calcium [Lipitor] 80 mg PO QHS #30 tab Clopidogrel Bisulfate [Plavix] 75 mg PO DAILY #30 tab glipiZIDE [Glucotrol] 5 mg PO DAILY@0800 #30 tab Insulin Glargine [Lantus SoloStar Pen] 23 units SC DAILY #30 pen Insulin Lispro [Humalog KwikPen] 10 unit SC TIDAC #90 insuln.pen Lisinopril [Zestril] 5 mg PO DAILY #30 tab Metformin HCl [Glucophage] 1,000 mg PO DAILY@0800 #30 tab Naproxen [Naprosyn] 500 mg PO DAILY@0800 #30 tab Please Follow Up With: Nafisa Payne NP-C - Please call [phone] for an appointment Disposition: Home Minutes spent on discharge:: 45 Patient Condition:: Good Rehab Course Per rehab admission H&P: The patient is a 72 year old handed white male who is admitted to the rehab unit after hospitalization in the PCU because of a right lateral medullary syndrome which began initially associated with nausea vomiting right-sided weakness and facial droop. His symptoms have improved. He lives alone in his own house, goal of rehab is episcopal of prior level functional independence. He says his nausea has improved, he has no GI or complaints and his swallowing has improved but he continues to have right sided paresthesias. His stay in the rehab unit was uneventful. His nausea was controlled with as needed use of Zofran which he will be discharged on. He tolerated therapies and improved to the extent that he could safely return home. Meaningful Use Info Meaningful Use Diagnoses (Choose all that apply): None applicable
[2017-10-19] MEDS: Mag Hydrox/Al Hydrox/Simeth 30 ML UDC 15 ML PO (11:26)
[2017-10-19 11:30] LABS: Bedside Glucose 112 mg/dL (70-110)
--- NOTE | 2017-10-19 12:24 | CASEMGMT ---
Addendum entered by Gabby Castaneda 10/19/17 12:29: Patient to also have a home health aide and skilled nurse through home health services. Original Note: Social Work Order for cane faxed to [facility]. Friend to flower picker cane on this day. [facility] social [facility] making referral for physical and occupational therapy as well as long-term and a home health aide. Order faxed. Spoke with patient in room to collaborate further on discharge plan. Patient requesting for further services to be set up through the PA. This director social welfare reporting to be able to contact to PA to see if patient qualifies for any services. Patient thanking this director social welfare. Patient reporting to be concerned about returning to home alone. This director social welfare voicing that patient has done well on the Inpatient Rehab unit and that the therapy team is not voicing any concerns with patient returning to home alone. Patient voicing understanding and voicing to have limited confidence. Emotional support given. Nursing also working on insulin injection teaching. Support given. Telephone call to [place] [facility]. Patient is 20% service connected and does not currently qualify for services due to patient current level of functioning being supervision. [facility] voicing that patient director social welfare is Brennan. This director social welfare providing patient with Brennan's contact information. No further needs voiced at this time. Support given. Proposed discharge date: 10/22/17 PLAN: Discharge to home alone with home health services. Gabby HARRIS, AQUATICS DIRECTOR
[2017-10-19 15:42] VITALS: BMI 30.7
[2017-10-19 17:15] LABS: Bedside Glucose 134 mg/dL (70-110)
[2017-10-19 20:38] VITALS: BP 132/70; PULSE 90; RESP 17; TEMP 36.9; O2SAT 96
[2017-10-19] MEDS: Atorvastatin Calcium 80 MG Tablet PO (20:46)
[2017-10-19 21:20] LABS: Bedside Glucose 150 mg/dL (70-110)
[2017-10-20] MEDS: Ondansetron ODT 4 MG Tablet PO (02:20)
[2017-10-20] MEDS: Enoxaparin 40 MG/0.4 ML Syringe SC (06:35)
[2017-10-20 06:40] LABS: Bedside Glucose 187 mg/dL (70-110)
[2017-10-20 07:59] VITALS: BP 133/81; PULSE 84; RESP 18; TEMP 36.9; O2SAT 97
[2017-10-20] MEDS: Insulin Lispro 100 UNIT/ML INSULN.PEN 10 UNIT SC ×3 (08:10→18:05)
[2017-10-20] MEDS: Insulin Lispro 100 UNIT/ML INSULN.PEN SC (08:10)
[2017-10-20] MEDS: Naproxen 500 MG Tablet PO (08:13)
[2017-10-20] MEDS: metFORMIN HCl 1,000 MG Tablet 1000 MG PO (08:14)
[2017-10-20] MEDS: Clopidogrel Bisulfate 75 MG Tablet PO (08:14)
[2017-10-20] MEDS: Lisinopril 5 MG Tablet PO (08:14)
[2017-10-20] MEDS: Senna/Docusate Sodium 1 Tablet 2 TABLET PO ×2 (08:14→21:17)
[2017-10-20] MEDS: Doxazosin 1 MG Tablet 2 MG PO (08:14)
[2017-10-20] MEDS: glipiZIDE 5 MG Tablet PO (08:14)
--- NOTE | 2017-10-20 09:42 | NURSING ---
patient demonstrated proper insulin administration with injection and correct units.
--- NOTE | 2017-10-20 11:01 | PCM.PN.HOSP ---
Subjective: Patient seen and examined. He denies any complains. Being discharged tomorrow. He feels improved. Objective: General: Alert, Oriented x3, Cooperative, No apparent distress HEENT: Atraumatic, PERRLA, EOMI, Normocephalic Oral: Moist Mucosa Neck: Supple Lungs: Clear to auscultation, Normal air movement Cardiovascular: Regular rate, Regular Rhythm, Normal S1, Normal S2, No murmurs Abdomen: Bowel Sounds Present, Soft, Non Tender, Non-Distended, No Hepato-splenomegaly Extremities: No edema Skin: No rashes, No breakdown Musculoskeletal: No Tenderness to Palpation of Joints or Extremities Lymphatic: No Cervical, Supraclavicular, or Inguinal Adenopathy Neurological: Neuro grossly intact, - - Slight right ptsosis, otherwise CN II-XII intact, power is 5/5, tone is normal Psych/Mental Status: Normal Affect, Appropriate Vitals/I&O's: Vital Signs Temp Pulse Resp BP Pulse Ox 98.4 F 84 18 133/81 H 97 10/20/17 07:59 10/20/17 07:59 10/20/17 07:59 10/20/17 07:59 10/20/17 07:59 Oxygen Delivery Method Room Air Weight: 97 kg Body Mass Index (BMI) 30.7 Intake and Output for Last 24 Hours 10/18/17 10/19/17 10/20/17 23:59 23:59 23:59 Intake Total 480 / 480 800 / 800 Balance 480 / 480 800 / 800 Laboratory Results 10/19/17 11:28: POC Glucose 112 H 10/19/17 17:09: POC Glucose 134 H 10/19/17 20:43: POC Glucose 150 H 10/20/17 06:36: POC Glucose 187 H Current Medications Al Hydroxide/Mg Hydroxide (Mylanta Ii) 15 ml PO Q6H PRN PRN PRN Reason: DYSPEPSIA Last Admin: 10/19/17 11:26 Dose: 15 ml Atorvastatin Calcium (Lipitor) 80 mg PO QHS TEETEE Last Admin: 10/19/17 20:46 Dose: 80 mg Bisacodyl (Dulcolax) 10 mg RECTAL .PRN X 1 PRN PRN Reason: Constipation Last Admin: 10/14/17 14:14 Dose: 10 mg Calcium Carbonate (Tums) 500 mg PO Q6H PRN PRN PRN Reason: DYSPEPSIA Clopidogrel Bisulfate (Plavix) 75 mg PO DAILY [facility] Last Admin: 10/20/17 08:14 Dose: 75 mg Doxazosin Mesylate (Cardura) 2 mg PO DAILY [facility] Last Admin: 10/20/17 08:14 Dose: 2 mg Enoxaparin Sodium (Lovenox) 40 mg SC DAILY@0600 [facility] Last Admin: 10/20/17 06:35 Dose: 40 mg Glipizide (Glucotrol) 5 mg PO DAILY@0800 [facility] Last Admin: 10/20/17 08:14 Dose: 5 mg Insulin Glargine (Lantus (Bkc)) 23 units SC DAILY [facility] Last Admin: 10/20/17 09:41 Dose: 23 u Insulin Human Lispro (Humalog Kwikpen (Bkc)) 0 unit SC ACHS [facility] PRN Reason: Protocol Last Admin: 10/20/17 08:10 Dose: 3 u Insulin Human Lispro (Humalog Kwikpen (Bkc)) 10 unit SC TIDAC [facility] Last Admin: 10/20/17 08:10 Dose: 10 unit Lisinopril (Zestril) 5 mg PO DAILY [facility] Last Admin: 10/20/17 08:14 Dose: 5 mg Magnesium Hydroxide (Milk Of Magnesia) 30 ml PO .PRN X 1 PRN PRN Reason: Constipation Last Admin: 10/13/17 16:43 Dose: 30 ml Metformin HCl (Glucophage) 1,000 mg PO DAILY@0800 [facility] Last Admin: 10/20/17 08:14 Dose: 1,000 mg Naproxen (Naprosyn) 500 mg PO DAILY@0800 [facility] Last Admin: 10/20/17 08:13 Dose: 500 mg Ondansetron HCl (Zofran Odt) 4 mg PO Q8H PRN PRN PRN Reason: NAUSEA/VOMITING Last Admin: 10/20/17 02:20 Dose: 4 mg Polyethylene Glycol (Miralax) 17 gm PO BID [facility] Last Admin: 10/20/17 08:16 Dose: Not Given Senna/Docusate Sodium (Senokot-S, Denisa-Colace) 2 tablet PO BID [facility] Last Admin: 10/20/17 08:14 Dose: 2 tablet Medical Necessity - Tobacco Use Smoking Status: Former smoker Assessment/Plan All Active Problems Stroke-like symptoms (Acute) 72 years old male patient admitted to acute rehab with symptoms of right facial droop, right cheek numbness, difficulty swallowing and 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 1. 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 Dysphagia, on calorie controlled diet, speech therapy following. 3. Type 2 diabetes mellitus, blood sugars are controlled, HgbA1c is 10.9, on glipizide and metformin, Lantus 23 units daily as well as 10 units 3 times daily 4. Hyperlipidemia, on Lipitor. 5. Benign prostatic hypertrophy, on Cardura. 6. DVT prophylaxis - Lovenox SC. Code Visit Inpatient E&M: 44323 Subs Hosp L2
[2017-10-20 12:01] LABS: Bedside Glucose 120 mg/dL (70-110)
[2017-10-20 14:56] VITALS: BMI 30.7
[2017-10-20 17:16] LABS: Bedside Glucose 87 mg/dL (70-110)
[2017-10-20 20:33] VITALS: BP 138/79; PULSE 91; RESP 18; TEMP 37.1; O2SAT 96
[2017-10-20] MEDS: Atorvastatin Calcium 80 MG Tablet PO (21:17)
[2017-10-20 21:26] LABS: Bedside Glucose 125 mg/dL (70-110)
[2017-10-21] MEDS: Ondansetron ODT 4 MG Tablet PO (05:46)
[2017-10-21] MEDS: Enoxaparin 40 MG/0.4 ML Syringe SC (05:47)
[2017-10-21 06:36] LABS: Bedside Glucose 193 mg/dL (70-110)
[2017-10-21] MEDS: Insulin Lispro 100 UNIT/ML INSULN.PEN 10 UNIT SC ×3 (08:07→18:07)
[2017-10-21] MEDS: Insulin Lispro 100 UNIT/ML INSULN.PEN SC ×2 (08:07→21:00)
[2017-10-21] MEDS: Doxazosin 1 MG Tablet 2 MG PO (08:07)
[2017-10-21 08:08] VITALS: BP 114/69; PULSE 95; RESP 18; TEMP 36.9; O2SAT 96
[2017-10-21] MEDS: metFORMIN HCl 1,000 MG Tablet 1000 MG PO (08:08)
[2017-10-21] MEDS: glipiZIDE 5 MG Tablet PO (08:08)
[2017-10-21] MEDS: Naproxen 500 MG Tablet PO (08:08)
[2017-10-21] MEDS: Senna/Docusate Sodium 1 Tablet 2 TABLET PO ×2 (08:08→20:23)
[2017-10-21] MEDS: Clopidogrel Bisulfate 75 MG Tablet PO (08:08)
[2017-10-21] MEDS: Lisinopril 5 MG Tablet PO (08:08)
[2017-10-21 10:17] VITALS: BMI 30.7
[2017-10-21 12:00] LABS: Bedside Glucose 101 mg/dL (70-110)
[2017-10-21 17:06] LABS: Bedside Glucose 91 mg/dL (70-110)
[2017-10-21 20:00] VITALS: BP 144/71; PULSE 92; RESP 16; TEMP 36.9; O2SAT 98
[2017-10-21 20:19] VITALS: BMI 30.7
[2017-10-21] MEDS: Atorvastatin Calcium 80 MG Tablet PO (20:23)
[2017-10-21 21:01] LABS: Bedside Glucose 165 mg/dL (70-110)
--- NOTE | 2017-10-22 02:50 | NURSING ---
REVIEWED AND AGREE WITH [employer] ARCHITECT'S FIM AND HANDOFF CHARTING.
[2017-10-22] MEDS: Ondansetron ODT 4 MG Tablet PO (04:01)
[2017-10-22] MEDS: Enoxaparin 40 MG/0.4 ML Syringe SC (05:18)
[2017-10-22 06:36] LABS: Bedside Glucose 167 mg/dL (70-110)
[2017-10-22] MEDS: Doxazosin 1 MG Tablet 2 MG PO (08:25)
[2017-10-22] MEDS: glipiZIDE 5 MG Tablet PO (08:25)
[2017-10-22] MEDS: Senna/Docusate Sodium 1 Tablet 2 TABLET PO (08:25)
[2017-10-22] MEDS: Naproxen 500 MG Tablet PO (08:25)
[2017-10-22] MEDS: metFORMIN HCl 1,000 MG Tablet 1000 MG PO (08:25)
[2017-10-22] MEDS: Clopidogrel Bisulfate 75 MG Tablet PO (08:25)
[2017-10-22] MEDS: Lisinopril 5 MG Tablet PO (08:25)
[2017-10-22] MEDS: Insulin Lispro 100 UNIT/ML INSULN.PEN SC (08:26)
[2017-10-22] MEDS: Insulin Lispro 100 UNIT/ML INSULN.PEN 10 UNIT SC (08:26)
[2017-10-22 08:32] VITALS: BP 108/63; PULSE 88; RESP 16; TEMP 36.7; O2SAT 93
[2017-10-22 10:00] VITALS: BP 108/63; PULSE 88; RESP 16; TEMP 36.7; O2SAT 98
--- NOTE | 2017-10-22 10:50 | NURSING ---
Went over DC intructions, medications and appts with pt. Pt verbalized understanding, pt has all personal belongings in hand to include valuables locked in safe, pt signed yellow receipt Envelope # [id number]
--- NOTE | 2017-10-22 11:13 | CASEMGMT ---
Insurance Notified insurance of patient discharge on 10/22/17 to home alone with home health services. Auth#[id number] Gabby HARRIS, [employer]LECT[employer] OUTS[employer]
--- NOTE | 2017-10-22 11:14 | PCM.PN.HOSP ---
Vitals/I&O's: Vital Signs Temp Pulse Resp BP Pulse Ox 98.1 F 88 16 108/63 98 10/22/17 10:00 10/22/17 10:00 10/22/17 10:00 10/22/17 10:00 10/22/17 10:00 Oxygen Delivery Method Room Air Weight: 97 kg Body Mass Index (BMI) 30.7 Intake and Output for Last 24 Hours 10/20/17 10/21/17 10/22/17 23:59 23:59 23:59 Intake Total 240 / 240 240 / 240 Balance 240 / 240 240 / 240 Laboratory Results 10/21/17 11:54: POC Glucose 101 10/21/17 17:02: POC Glucose 91 10/21/17 20:59: POC Glucose 165 H 10/22/17 06:29: POC Glucose 167 H Medical Necessity - Tobacco Use Smoking Status: Former smoker Assessment/Plan All Active Problems Stroke-like symptoms (Acute) 72 years old male patient admitted to acute rehab with symptoms of right facial droop, right cheek numbness, difficulty swallowing and 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 1. 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 Dysphagia, speech therapy following. 3. Type 2 diabetes mellitus, blood sugars are better controlled now, HgbA1c is 10.9, on glipizide and metformin, Lantus 23 units daily as well as 10 units 3 times daily 4. Hyperlipidemia, on Lipitor. 5. Benign prostatic hypertrophy, on Cardura. 6. DVT prophylaxis - Lovenox SC. Code Visit Inpatient E&M: 97454 Subs Hosp L2
== END 2017-10-22 10:55 | disposition home health service (06) | DRG 57 ==
PROVIDERS: Hospitalist; Internal Medicine; Admitting Provider Psychiatry & Neurology Neurology; Visit Provider Internal Medicine
DX: I69.351 Hemiplegia and hemiparesis following cerebral infarction affecting right dominant side (principal); N40.0 Benign prostatic hyperplasia without lower urinary tract symptoms; E78.5 Hyperlipidemia, unspecified; I10 Essential (primary) hypertension; H02.401 Unspecified ptosis of right eyelid; I69.398 Other sequelae of cerebral infarction; I69.392 Facial weakness following cerebral infarction; R20.9 Unspecified disturbances of skin sensation; E11.65 Type 2 diabetes mellitus with hyperglycemia; I69.391 Dysphagia following cerebral infarction; R13.12 Dysphagia, oropharyngeal phase; Z79.899 Other long term (current) drug therapy; Z79.4 Long term (current) use of insulin; Z79.02 Long term (current) use of antithrombotics/antiplatelets; Z87.891 Personal history of nicotine dependence
CPT/HCPCS: 36415; 70450; 80048; 82962; 85027; 92507; 92523; 92526; 97110; 97112; 97116; 97162; 97166; 97530; 97535; 97802

== ENCOUNTER 2018-12-22 12:55 | Emergency (ER) | payer MEDICARE, BC, SELFPAY ==
[2018-12-22 12:56] VITALS: BP 146/74; PULSE 96; RESP 18; TEMP 36.1; O2SAT 97; BMI 30.7
--- NOTE | 2018-12-22 13:14 | RAD_ITS ---
STUDY: X-RAY - LEFT FOOT CLINICAL: Male, 73 years old. Wound of the second toe, diabetes TECHNIQUE: 3 view(s) of the foot. COMPARISON: None. FINDINGS: There is a plantar calcaneal spur. Normal visualized subtalar, talonavicular, calcaneocuboid, tarsal and tarsometatarsal articulations. Normal metatarsi. There is degenerative arthrosis of the metatarsophalangeal joint of the hallux . Normal tibial and fibular sesamoid bones. Normal interphalangeal joint of the great toe. Normal phalanges of the great toe. Normal second through fifth metatarsophalangeal joints. Normal interphalangeal joints and phalanges of the lesser toes. There is soft tissue swelling of the second digit. RAD/Foot min 3 Views IMPRESSION: 1. Second digit soft tissue swelling without demonstrated fracture or erosive process. Electronically Signed: Austen Rosenthal MD (Brooks) at 13:55 EDT , Service support ,
--- NOTE | 2018-12-22 13:15 | ED.VIS.LOWEX ---
History of Present Illness Chief Complaint: Wound Informant: Patient Onset: Days - 2 Context: Gradual Onset Timing: Continuous Quality of Pain: - - red Location: left 2nd toe Current Severity: Moderate Maximum Severity: Moderate Associated Symptoms: Parasthesia - throughout both forefeet chronically due to periph neuropathy Narrative: Patient states he has had an ulceration on the bottom of his left second toe for the last 2 or 3 months, he has been seeing a money manager for it who has been doing wound care, in the past 2 days he has noticed redness in the toe progressing into his foot. He denies any pain because he has history of peripheral neuropathy there. He denies any fevers or systemic symptoms or feeling poorly. Has history of diabetes. Also has an appointment with his money manager tomorrow but was concerned about the appearance of it so he came to the ER for evaluation today. No recent injuries. - Past Medical History (1) Ischemic stroke Status: Chronic (2) Benign prostatic hyperplasia Status: Chronic (3) Hyperlipidemia Status: Chronic (4) Hypertension Status: Chronic (5) Type 2 diabetes mellitus Status: Chronic (6) Diabetic peripheral neuropathy Status: Chronic Past Medical History - Allergies and Home Meds Allergies/Adverse Reactions: Allergies No Known Allergies Allergy (Verified 12/22/18 12:59) Primary Care Physician: Emilie Hyatt [Primary Care Provider] - Surgical History: no surgical history Lives: Spouse/ Significant Other Smoking Status: Former smoker - Family History Paternal Family History: Reports: Cancer Maternal Family History: Reports: Diabetes Review of Systems General: Denies: Chills, Fever, Sweats Eyes: Denies: Visual changes - bilaterally, Diplopia ENT: Denies: Rhinorrhea, Sore throat Cardiovascular: Denies: Chest pain, Palpitations Respiratory: Denies: Dyspnea, Cough, Dyspnea on exertion Gastrointestinal: Denies: Abdominal pain, Nausea, Vomiting, Diarrhea, Melena, Hematochezia Genitourinary: Denies: Dysuria, Hematuria, Frequency Musculoskeletal: Reports: Swelling - Left second toe. Denies: Back pain, Extremity Pain Skin: Reports: Rash - Redness in the forefoot left, Wounds - Left second toe Neurological: Denies: Headache, Weakness, Numbness Physical Exam Vital Signs/Narrative: Vital Signs Temp Pulse Resp BP Pulse Ox 12/22/18 12:56 97 F L 96 18 146/74 H 97 Inital Vital Signs reviewed: Yes - Extremity Exam Left Toe: Edema - Plantar callus/wound surrounded by blister, left second toe. The rest of the toe is erythematous and mildly swollen. There is some blanching erythema that is tender into the dorsal forefoot just proximal to this, it stops at about the base of the second metatarsal. There is no lymphangitis elsewhere up the leg. He has edema in both legs that is chronic. General: Well nourished, Well developed Head: Normocephalic, Atraumatic Eyes: Perrl, EOMI ENT: No Trauma, Moist Mucous Membranes Neck: Nontender, Full ROM Respiratory: No distress Skin: Normal color, Rash - Erythema and blister to left second toe, no abscess. Neurological: Alert, Oriented x3, Cranial nerves II-XII grossly intact, Normal Strength. Negative for: Normal Sensation - Decreased sensation both forefeet Psychological: Normal affect, Normal Mood Diagnostic/Tx/Re-eval Impressions Foot X-Ray 12/22/18 13:14 IMPRESSION: 1. Second digit soft tissue swelling without demonstrated fracture or erosive process. Electronically Signed: Austen Rosenthal MD (Brooks) at 13:55 EDT , Service support , 12/22/18 13:14 Foot min 3 Views [RAD] Stat Laboratory Results 12/22/18 12/22/18 13:25 13:25 WBC 5.6 RBC 4.89 Hgb 14.2 Hct 43.7 MCV 89.4 MCH 29.0 MCHC 32.5 RDW Std Deviation 44.2 H RDW Coeff of Paula 13.6 Plt Count 174 MPV 9.5 Immature Gran % (Auto) 0.200 Neut % (Auto) 59.0 Lymph % (Auto) 26.6 Jones % (Auto) 9.4 Eos % (Auto) 3.7 Baso % (Auto) 1.1 H Absolute Neuts (auto) 3.3 Absolute Lymphs (auto) 1.50 Nucleated RBC % 0 ESR 9 Sodium 138 Potassium 4.3 Chloride 103 Carbon Dioxide 28.0 Anion Gap 7 BUN 29 H Creatinine 1.49 H Estim Creat Clear Calc 48.43 Est GFR (MDRD) Af Amer 60 Est GFR (MDRD) Non-Af 49 L BUN/Creatinine Ratio 19.5 Glucose 169 H Calcium 8.7 C-React Prot Ext Range 6.56 H - Medical Decision Making Clinically, patient's toe does appear to be getting infected. He was empirically given Zosyn IV for that. Labs are reassuring, he has an elevated CRP at 6.5 but his ESR and blood counts are normal. X-ray shows soft tissue swelling in the affected area without any signs of osteomyelitis on x-ray. I do not think he needs to be admitted for this at this time, plan is to put him on antibiotics and have him follow-up with podiatry as scheduled tomorrow. He is comfortable with that plan. ED Disposition - Plan for ED Patient: Disposition: Home or Assisted Living Diagnosis: Infected blister of second toe of left foot Instructions: Cellulitis, Diabetic Foot Ulcers Prescriptions: Cephalexin [Keflex] 500 mg PO Q6 #40 cap Transmission Status: Pending to [place] [address] [address] [facility] Referrals: Emilie Hyatt [Primary Care Provider] - Principal Statistical Programmer, your [Other] (As scheduled tomorrow)
[2018-12-22 13:33] LABS: Erythrocyte Sedimentation Rate 9 mm/hr (0-20)
[2018-12-22 13:34] LABS: Absolute Neutrophil Count 3.3 X10^3/uL (2.0-7.7); Basophil# 0.06 X10^3/uL; Basophil% 1.1 % (0-1); Eosinophil# 0.21 X10^3/uL; Eosinophils% 3.7 % (0-5); Hematocrit 43.7 % (40-54); Hemoglobin 14.2 g/dL (13.0-16.5); Lymphocyte % 26.6 % (19-41); Mean Corp Hgb Conc 32.5 g/dL (32-36); Mean Corpuscular Volume 89.4 fL (80-94); Mean Platelet Vol. 9.5 fl (6.2-12.0); Monocyte# 0.53 X10^3/uL; Monocyte% 9.4 % (0-10); NRBC Flagged by Analyzer 0 % (0-5); Neutrophil # 3.33 X10^3/uL (2.7-7.7); Platelet Count 174 K/mm3 (150-450); RBC Distribution Width CV 13.6 % (11.6-14.6); RBC Distribution Width SD 44.2 fl (35.1-43.9); Red Blood Count 4.89 M/mm3 (4.6-6.2); White Blood Count 5.6 K/mm3 (4.4-11.0)
[2018-12-22 13:42] LABS: Anion Gap 7 (5-15); BUN 29 mg/dL (7-18); BUN/Creat Ratio 19.5 RATIO (10-20); CRP 6.56 mg/L (0.0-3.0); Calcium,Total 8.7 mg/dL (8.5-10.1); Chloride 103 mmol/L (98-107); Creatinine, Serum 1.49 mg/dL (0.70-1.30); EST Glomerular Filtration Rate 49 mL/min (>60); Est Glom Filt Rate - Afr Amer 60 mL/min (>60); Estimated Creatinine Clearance 48.43 ml/min; Glucose 169 mg/dL (74-106); Potassium 4.3 mmol/L (3.5-5.1); Sodium Level 138 mmol/L (136-145)
[2018-12-22 15:40] VITALS: BP 132/77; PULSE 62; RESP 15; O2SAT 96
== END 2018-12-22 15:41 | disposition home or self-care (01) ==
PROVIDERS: Emergency Provider Emergency Medicine; Family Provider Family Medicine; PCP Family Medicine
DX: S90.426A Blister (nonthermal), unspecified lesser toe(s), initial encounter (principal); B99.8 Other infectious disease; E11.42 Type 2 diabetes mellitus with diabetic polyneuropathy; E78.5 Hyperlipidemia, unspecified; I10 Essential (primary) hypertension; N40.0 Benign prostatic hyperplasia without lower urinary tract symptoms; Z86.73 Personal history of transient ischemic attack (TIA), and cerebral infarction without residual deficits; Z87.891 Personal history of nicotine dependence
CPT/HCPCS: 73630; 80048; 85025; 85652; 86140; 96365; 99283; A4216

== ENCOUNTER 2020-03-10 16:50 | Observation (INO) | payer OTHER, MEDICARE, BC, SELFPAY ==
[2020-03-10] VITALS (8 sets, daily range): BP systolic 148–165; BP diastolic 98–104; PULSE 91–113; RESP 16–21; TEMP 36.6–36.7; O2SAT 94–96; BMI 31.2; BMI 31.3
--- NOTE | 2020-03-10 17:14 | EKG12_ITS ---
Test Reason : SOB Blood Pressure : / mmHG Vent. Rate : 092 BPM Atrial Rate : 092 BPM P-R Int : 192 ms QRS Dur : 080 ms QT Int : 354 ms P-R-T Axes : 041 006 013 degrees QTc Int : 437 ms Sinus rhythm with Premature atrial complexes Possible Inferior infarct , age undetermined Abnormal ECG Confirmed by CAROLYN GONZALEZ, [place]ODROW ([id number]), publication editor KATIANA ANDRES ([id number]) on 03/15/2020 11:07:55 AM Referred By: KEYSHAWN Confirmed By:CHARITY LEON MD
--- NOTE | 2020-03-10 17:29 | ED.DCSUM_ITS ---
- ER Visit Summary Date of Service: 03/10/20 Chief Complaint: [Shortness of breath] History of Present Illness: The patient is a 74 M [presents with shortness of breath for last 3 to 4 days. Patient complains of severe exertional dyspnea. He denies any chest pain. He is not had symptoms like this before. Patient does not have history of COPD or emphysema. He denies CHF history. He denies weight gain or increased swelling of his extremities. He denies recent travel or surgery. Patient denies fever or cough or recent illness. He denies any COVID-19 exposures. Patient does have history of diabetes, hypertension, asthma, and chronic neck pain. Patient has history of prior stroke.] Physical Examination: [HEENT-PERRLA, EOMI. Cranial nerves II through XII grossly intact. TMs clear. Mucous membranes moist. No adenopathy. Cardiovascular-regular rate and rhythm without murmur or ectopy Lungs-clear to auscultation, chest wall stable without crepitus or subcu emphysema Abdomen-normoactive bowel sounds, soft, nontender, no rebound or rigidity, no peritoneal signs. Extremities-intact ?4, normal range of motion, normal pulses, atraumatic] Test Results: [EKG obtained arrival shows sinus rhythm with a ventricular rate of 92 bpm with old inferior infarct noted. CBC with differential showed a white count of 5.6, hemoglobin 15, hematocrit 46, plates 184. Chemistries unremarkable. Troponin was less than 0.015. BNP was 3.1. SARS COVID-19 testing was negative. D-dimer was less than 0.27. Chest x-ray interpreted by myself as mild increased markings in both lungs. Radiology felt that he may have mild interstitial edema versus infiltrate.] Emergency Department Course and Treatment: [ Established on arrival. Patient placed on activity director. Patient was ordered baby aspirin.] Treatment Plan: [Admit for further work-up and evaluation of his exertional dyspnea. Concerned about an anginal equivalent and acute coronary syndrome.] Disposition: [Admit] Impression: [Exertional dyspnea Anginal equivalent-rule out acute coronary syndrome] This note was generated with [employer] software. It may contain incorrect words, spelling, and punctuation that were not noted in review of the chart prior to signing ED Disposition - Plan for ED Patient: Referrals: Emilie Hyatt DO [Primary Care Provider] -
--- NOTE | 2020-03-10 17:35 | RAD_ITS ---
STUDY: X-RAY CHEST REASON FOR EXAM: Male, 74 years old. SOB with exertion for a couple days. Hx of asthma TECHNIQUE: Single AP portable view of the chest. COMPARISON: None. FINDINGS: There are mild interstitial increased opacities of the lungs. There is no demonstrated pleural abnormality. Normal size heart. Normal mediastinum and drew. Normal visualized pulmonary arteries. Normal visualized aortic arch and descending thoracic aorta. There are diffuse degenerative changes of the visualized thoracic spine. There are healed right rib fractures. There is no demonstrated abnormality of the visualized soft tissue structures of the upper abdomen. RAD/Chest 1 View (Portable) IMPRESSION: Mild interstitial edema or early infiltrates. Electronically Signed: Ruiz Kelly MD at 18:06 EST , Service support ,
[2020-03-10 18:57] LABS: Absolute Lymphocyte Count 1.61 X10^3/uL (0.83-4.51); Absolute Neutrophil Count 3.2 X10^3/uL (2.0-7.7); Basophil# 0.04 X10^3/uL; Basophil% 0.7 % (0-1); Eosinophil# 0.21 X10^3/uL; Eosinophils% 3.7 % (0-5); Hematocrit 45.7 % (40-54); Lymphocyte # 1.61 X10^3/ul (4.0); Lymphocyte % 28.6 % (19-41); Mean Corp Hgb Conc 32.8 g/dL (32-36); Mean Corpuscular Hgb 28.4 pg (27.0-32.0); Mean Corpuscular Volume 86.6 fL (80-94); Mean Platelet Vol. 9.6 fl (6.2-12.0); Monocyte# 0.59 X10^3/uL; Monocyte% 10.5 % (0-10); NRBC Flagged by Analyzer 0 % (0-5); Neutrophil # 3.16 X10^3/uL (2.7-7.7); Neutrophil % 56.3 % (47-70); Platelet Count 184 K/mm3 (150-450); RBC Distribution Width CV 13.7 % (11.6-14.6); Red Blood Count 5.28 M/mm3 (4.6-6.2); White Blood Count 5.6 K/mm3 (4.4-11.0)
[2020-03-10 19:09] LABS: BNP,B-Type NATRIURETIC PEPTIDE 3.1 pg/mL (0-100)
[2020-03-10 19:12] LABS: Anion Gap 3 (5-15); BUN 24 mg/dL (7-18); BUN/Creat Ratio 19.8 RATIO (10-20); Calcium,Total 9.1 mg/dL (8.5-10.1); Chloride 106 mmol/L (98-107); Creatinine, Serum 1.21 mg/dL (0.70-1.30); D-Dimer Quantitative (DVT/PE) <= 0.27 FEU/ug/m (0.27-0.49); EST Glomerular Filtration Rate 63 mL/min (>60); Est Glom Filt Rate - Afr Amer 76 mL/min (>60); Estimated Creatinine Clearance 56.98 ml/min; Glucose 89 mg/dL (74-106); Potassium 4.2 mmol/L (3.5-5.1); Sodium Level 141 mmol/L (136-145)
--- NOTE | 2020-03-10 19:55 | HP.PCM_ITS ---
Problem List (1) Dyspnea Status: Acute (2) Ischemic stroke Status: Chronic (3) Diabetic peripheral neuropathy Status: Chronic (4) Benign prostatic hyperplasia Status: Chronic (5) Hyperlipidemia Status: Chronic (6) Hypertension Status: Chronic (7) Type 2 diabetes mellitus Status: Chronic History of Present Illness Date of Admission: 03/10/20 Chief Complaint: Dyspnea The patient is a 74 year old M with a significant history of asthma; hypertension; diabetes mellitus; and CVA who presents to the emergency department with a 3-day history of shortness of breath. He denies shortness of breath at rest. However he has shortness of breath with mild activities like bending over and dressing. He reports orthopnea requiring him to sleep in a recliner. Further, he has fatigue. He does not check his weight to tell whether he has had any weight changes. He denies any fever. Past Medical History Past Medical History (Chronic Problems): Chronic Problems Ischemic stroke (Chronic) Diabetic peripheral neuropathy (Chronic) Benign prostatic hyperplasia (Chronic) Hyperlipidemia (Chronic) Hypertension (Chronic) Type 2 diabetes mellitus (Chronic) Allergies No Known Allergies Allergy (Verified 03/10/20 16:56) Home Medications: Ambulatory Orders Medication Instructions Recorded Atorvastatin Calcium 40 mg PO QHS 03/10/20 Cholecalciferol (Vitamin D3) 75 mcg PO DAILY 03/10/20 [Vitamin D3] Clopidogrel Bisulfate [Plavix] 75 mg PO DAILY 03/10/20 Cyanocobalamin (Vitamin B-12) 500 mcg PO DAILY 03/10/20 [Vitamin B-12] Empagliflozin [Jardiance] 10 mg PO DAILY 03/10/20 Finasteride 5 mg PO DAILY 03/10/20 Insulin Aspart [Novolog Flexpen] 8 units SQ BREAKFAST 03/10/20 Insulin Aspart [Novolog Flexpen] 10 unit SQ DINNER 03/10/20 Insulin Aspart [Novolog Flexpen] 11 unit SQ LUNCH 03/10/20 Insulin Glargine [Lantus SoloStar 60 units SC DAILY 03/10/20 Pen] Magnesium Oxide [Magnesium] 500 mg PO DAILY 03/10/20 Multivit-Mins/Iron/Folic/Lycop 1 tab PO DAILY 03/10/20 [Centrum Men's Tablet] [place]-3 Fatty Acids/Fish Oil [Fish 1 cap PO TIDCM 03/10/20 Oil 1,000 mg Capsule] Terazosin HCl 5 mg PO QHS 03/10/20 Vit A/Vit C/Vit E/Zinc/Copper 1 tab PO BID 03/10/20 [Preservision Areds Tablet] Surgical History: no surgical history Smoking Status: Former smoker - *Family History Paternal History Items: Cancer Maternal History Items: Diabetes Review of Systems Constitutional: Denies: Chills, Fever, Weight Change HEENT: Denies: Head Aches, Sinus Congestion, Sinus Drainage Cardiovascular: Reports: Orthopnea. Denies: Chest Pain, Palpitations Respiratory: Reports: Shortness of breath upon exertion. Denies: Cough, Shortness of breath at rest, Sputum production Gastrointestinal: Denies: Abdominal Pain, Nausea, Vomiting Genitourinary: Denies: Dysuria Musculoskeletal: Denies: Joint Pain, Joint Tenderness Skin: Denies: Rash, Wounds Neurological: Denies: Numbness, Tingling, Focal weakness Psychiatric: Denies: Anxiety, Depression, Homicidal Ideations, Suicidal Ideations Hematologic/ Lymphatic: Denies: Easy Bruising, Easy Bleeding VTE Information - Inpt Only VTE Present on Admission: No VTE Mechan Device Prophylaxis: SCD's, None VTE Pharm Prophylaxis ordered?: No Patient Problems: Active and Suspected Problems Dyspnea (Acute) - Physical Exam Vitals/I&O's: Vital Signs Temp Pulse Resp BP Pulse Ox 98.0 F 113 H 16 148/98 H 96 03/10/20 18:02 03/10/20 18:02 03/10/20 18:02 03/10/20 18:02 03/10/20 18:02 Oxygen Delivery Method Room Air Weight: 95 kg Body Mass Index (BMI) 30.0 General: Alert, Oriented x3, Cooperative HEENT: Atraumatic, PERRLA, EOMI, Normocephalic Neck: Supple, No JVD, Negative Carotid Bruits Lungs: Clear to auscultation, Normal air movement, Short of Breath, Tachypneic, Using Accessory Muscles Cardiovascular: Regular rate, Normal S1, Normal S2, No murmurs Abdomen: Bowel Sounds Present, Soft, Non Tender Extremities: No edema, Capillary Refill Less than 3 Seconds Skin: No rashes, No breakdown Musculoskeletal: No Tenderness to Palpation of Joints or Extremities Neurological: Cranial nerves II-XII grossly intact Psych/Mental Status: Normal Affect, Appropriate Microbiology Past 72 Hours 03/10/20 18:00 Mucosa - Nose SARS-CoV-2 Antigen (Rapid) - Final Laboratory Results 03/10/20 18:50: WBC 5.6, RBC 5.28, Hgb 15.0, Hct 45.7, MCV 86.6, MCH 28.4, MCHC 32.8, RDW Std Deviation 43.0, RDW Coeff of Paula 13.7, Plt Count 184, MPV 9.6, Immature Gran % (Auto) 0.200, Neut % (Auto) 56.3, Lymph % (Auto) 28.6, Edgar % (Auto) 10.5 H, Eos % (Auto) 3.7, Baso % (Auto) 0.7, Absolute Neuts (auto) 3.2, Absolute Lymphs (auto) 1.61, Nucleated RBC % 0 03/10/20 18:50: D-Dimer Quant (PE/DVT) <= 0.27 03/10/20 18:50: Sodium 141, Potassium 4.2, Chloride 106, Carbon Dioxide 32.0, Anion Gap 3 L, BUN 24 H, Creatinine 1.21, Estim Creat Clear Calc 56.98, Est GFR (MDRD) Af Amer 76, Est GFR (MDRD) Non-Af 63, BUN/Creatinine Ratio 19.8, Glucose 89, Calcium 9.1, Troponin I < 0.015 03/10/20 18:50: B-Natriuretic Peptide 3.1 Current Medications Dextrose (Dextrose 50%-Water 25 Gm/50 Ml Disp.Syrin) 0 gm IV X1 PRN; Protocol PRN Reason: Hypoglycemia Glucagon (Glucagon 1 Mg/Ml Syringe) 1 mg IM .X1 PRN PRN Reason: Hypoglycemia Assessment/Plan All Active Problems Dyspnea (Acute) The patient is a 74 year old M with a significant history of asthma; hypertension; diabetes mellitus; and CVA who presents emergency department with 3-day history of exertional dyspnea; and orthopnea. Exertional dyspnea and orthopnea Chest x-ray interpreted by radiologist as mild interstitial edema or early infiltrates. Chest x-ray was independently reviewed. I agree with radiologist interpretation. Review of emergency department labs showed low BNP. Actual EKG tracing was reviewed. Noted Q waves in lead III and aVF. Previous EKG was reviewed. Previous EKG showed Q waves only in lead III. We will get a echocardiogram and a chemical stress test. Daily weights. Strict intake and output. N.p.o. except meds for stress test. Lasix 40 mg IV x1. Trend CBC and BMP. Diabetes mellitus Blood glucose is within goal. Home empagliflozin continued. Basal and prandial insulin held because patient is at risk of hypoglycemia. Accu-Chek every 6 hours in the setting of patient being kept n.p.o. for stress test. Hypertension Blood pressure is now within goal. As needed hydralazine ordered. Trend blood pressure and adjust blood pressure medication as necessary. BPH Terazosin and finasteride continued History of stroke Plavix continued. Lipitor continued. DVT Prophylaxis SCD in the setting of cardiac work-up. OBSV E&M: 52776 Initial observation care L2
[2020-03-10] MEDS: Aspirin 81 MG TAB.CHEW PO (20:16)
--- NOTE | 2020-03-10 20:25 | ED.RN ---
PT TOOK NIGHT MEDS.
[2020-03-10 20:26] LABS: Bedside Glucose 91 mg/dL (70-110)
--- NOTE | 2020-03-10 21:00 | ECHOD_ITS ---
Reason For Study: DYSPNEA Procedure This was a 2D Doppler, Color Flow transthoracic echocardiogram. The study was technically difficult. Difficult image acquisition due to respiratory interference. Exam performed portable in patient room. Left Ventricle Normal LV size. The estimated ejection fraction is 65 %. No evidence for diastolic dysfunction. No regional wall motion abnormalities noted. Right Ventricle Normal RV size. Normal systolic function. Atria Normal left atrium. Normal atrial septum. Mitral Valve There is no mitral valve stenosis. No mitral valve insufficiency. Tricuspid Valve There is no tricuspid stenosis. Trivial tricuspid valve insufficiency. Unable to estimate RV systolic pressure due to insufficient tricuspid regurgitant envelope. Aortic Valve Trisinus/trileaflet aortic valve. There is no aortic stenosis. No aortic valve insufficiency. Pulmonic Valve There is no pulmonic valvular stenosis. No pulmonic valve insufficiency. Great Vessels Normal aortic root. Pericardium/Pleural No pericardial effusion. Medication Previously negative bubble study. MMode/2D Measurements & Calculations LVIDd: 3.6 cm IVSd: 1.2 cm Ao root diam: 3.1 cm LVIDs: 2.3 cm LVPWd: 1.3 cm RVDd: 3.7 cm FS: 34.8 % LAV(MOD-bp): 40.8 ml LA A4 area: 16.8 cm2 LA dimension(2D): 3.8 cm LAV(MOD-bp) Indexed: 19.2 ml/m2 LAV(MOD-sp2): 35.3 ml LAV(MOD-sp4): 37.2 ml RA A4 area: 8.9 cm2 Time Measurements MV dec time: 0.38 sec Doppler Measurements & Calculations MV E max zack: 56.3 cm/sec Lat Peak E' Zack: 9.8 cm/sec Med Peak E' Zack: 6.6 cm/sec MV A max zack: 85.0 cm/sec E/E' lat: 5.8 E/E' med: 8.6 MV E/A: 0.66 Ao V2 max: 97.6 cm/sec LV V1 max: 86.1 cm/sec PA V2 max: 127.9 cm/sec Ao max P.8 mmHg LV V1 max P.0 mmHg TR max zack: 298.4 cm/sec TR max P.6 mmHg Interpretation Summary The estimated ejection fraction is 65 %. No evidence for diastolic dysfunction. Ordering Physician: Tyson Gallegos Referring Physician: NANDINI GUTIÉRREZ Performed By: Katie Yoder, MARISA, RVT
--- NOTE | 2020-03-10 21:05 | PCS.PANDOC ---
PANDEMIC DOCUMENTATION INITIATED: Date: 03/10/2020 Time: 2100
[2020-03-10 21:46] LABS: Bedside Glucose 91 mg/dL (70-110)
[2020-03-10] MEDS: Furosemide 40 MG/4 ML Vial IV (22:24)
[2020-03-11] VITALS (13 sets, daily range): BP systolic 133–154; BP diastolic 79–97; PULSE 94–115; RESP 16–20; TEMP 36.4–36.8; O2SAT 92–95
[2020-03-11 06:32] LABS: Absolute Lymphocyte Count 1.39 X10^3/uL (0.83-4.51); Absolute Neutrophil Count 3.7 X10^3/uL (2.0-7.7); Basophil# 0.07 X10^3/uL; Basophil% 1.2 % (0-1); Eosinophil# 0.19 X10^3/uL; Eosinophils% 3.2 % (0-5); Hematocrit 46.7 % (40-54); Lymphocyte # 1.39 X10^3/ul (4.0); Lymphocyte % 23.2 % (19-41); Mean Corp Hgb Conc 32.1 g/dL (32-36); Mean Corpuscular Volume 87.1 fL (80-94); Mean Platelet Vol. 9.6 fl (6.2-12.0); Monocyte# 0.58 X10^3/uL; Monocyte% 9.7 % (0-10); NRBC Flagged by Analyzer 0 % (0-5); Neutrophil # 3.74 X10^3/uL (2.7-7.7); Neutrophil % 62.4 % (47-70); Platelet Count 176 K/mm3 (150-450); RBC Distribution Width SD 44.1 fl (35.1-43.9); Red Blood Count 5.36 M/mm3 (4.6-6.2)
[2020-03-11 07:17] LABS: Anion Gap 5 (5-15); BUN 25 mg/dL (7-18); BUN/Creat Ratio 17.4 RATIO (10-20); Calcium,Total 9.1 mg/dL (8.5-10.1); Chloride 103 mmol/L (98-107); Creatinine, Serum 1.44 mg/dL (0.70-1.30); EST Glomerular Filtration Rate 51 mL/min (>60); Est Glom Filt Rate - Afr Amer 62 mL/min (>60); Estimated Creatinine Clearance 49.39 ml/min; Glucose 168 mg/dL (74-106); Potassium 4.1 mmol/L (3.5-5.1); Sodium Level 140 mmol/L (136-145); Thyroid Stim Hormone (TSH) 1.38 uIU/mL (0.358-3.74)
[2020-03-11 08:01] LABS: Bedside Glucose 153 mg/dL (70-110)
[2020-03-11] MEDS: Empagliflozin 10 MG Tablet PO (10:26)
[2020-03-11] MEDS: Multivitamins,Ther W-Minerals Tablet 1 TABLET PO (10:26)
[2020-03-11] MEDS: Cyanocobalamin 500 MCG Tablet PO (10:26)
[2020-03-11] MEDS: Magnesium Chloride 64 MG Delay Rel.Tablet 128 MG PO (10:26)
[2020-03-11] MEDS: Clopidogrel Bisulfate 75 MG Tablet PO (10:26)
[2020-03-11] MEDS: Finasteride 5 MG Tablet PO (10:26)
[2020-03-11] MEDS: Multivitamin (Healthy Eyes) Capsule 1 CAP PO ×2 (10:26→21:53)
[2020-03-11 12:00] LABS: Bedside Glucose 265 mg/dL (70-110)
--- NOTE | 2020-03-11 12:52 | PN_ITS ---
<TimGhazal RELISH MAKER - Last Filed: 03/11/20 13:18> Patient Problems: Active and Suspected Problems Dyspnea (Acute) Subjective: Patient seen and examined. Notes improvement in shortness of breath however states he is still unable to lie flat. Patient states he has been sleeping propped up in a recliner for the past 3 to 4 days. Denies chest pain. Denies weight gain or swelling. Patient was unable to complete stress test today due to shortness of breath while lying flat. - Physical Exam Vitals/I&O's: Vital Signs Temp Pulse Resp BP Pulse Ox 98.2 F 106 H 18 145/82 H 95 03/11/20 11:25 03/11/20 11:25 03/11/20 11:25 03/11/20 11:25 03/11/20 11:25 Oxygen Delivery Method Room Air Weight: 219 lb 2.232 oz Body Mass Index (BMI) 31.2 Finger Stick Blood Glucose 91 Intake and Output for Last 24 Hours 03/09/20 03/10/20 03/11/20 23:59 23:59 23:59 Intake Total 200 / 200 340 / 340 Balance 200 / 200 340 / 340 General: Alert, Oriented x3, Cooperative HEENT: Atraumatic, PERRLA, EOMI, Normocephalic Neck: Supple, No JVD, Negative Carotid Bruits Lungs: Clear to auscultation, Diminished Cardiovascular: Regular rate, No murmurs Abdomen: Bowel Sounds Present, Soft, Non Tender Extremities: No clubbing, No cyanosis, No edema, Capillary Refill Less than 3 Seconds Skin: No rashes, No breakdown Musculoskeletal: No Tenderness to Palpation of Joints or Extremities Neurological: Cranial nerves II-XII grossly intact, Neuro grossly intact Psych/Mental Status: Normal Affect, Appropriate Microbiology Past 72 Hours 03/10/20 18:00 Mucosa - Nose SARS-CoV-2 Antigen (Rapid) - Final Laboratory Results 03/10/20 18:50: WBC 5.6, RBC 5.28, Hgb 15.0, Hct 45.7, MCV 86.6, MCH 28.4, MCHC 32.8, RDW Std Deviation 43.0, RDW Coeff of Paula 13.7, Plt Count 184, MPV 9.6, Immature Gran % (Auto) 0.200, Neut % (Auto) 56.3, Lymph % (Auto) 28.6, Blaine % (Auto) 10.5 H, Eos % (Auto) 3.7, Baso % (Auto) 0.7, Absolute Neuts (auto) 3.2, Absolute Lymphs (auto) 1.61, Nucleated RBC % 0 03/10/20 18:50: D-Dimer Quant (PE/DVT) <= 0.27 03/10/20 18:50: Sodium 141, Potassium 4.2, Chloride 106, Carbon Dioxide 32.0, Anion Gap 3 L, BUN 24 H, Creatinine 1.21, Estim Creat Clear Calc 56.98, Est GFR (MDRD) Af Amer 76, Est GFR (MDRD) Non-Af 63, BUN/Creatinine Ratio 19.8, Glucose 89, Calcium 9.1, Troponin I < 0.015 03/10/20 18:50: B-Natriuretic Peptide 3.1 03/10/20 20:13: POC Glucose 91 03/10/20 21:42: POC Glucose 91 03/11/20 06:00: WBC 6.0, RBC 5.36, Hgb 15.0, Hct 46.7, MCV 87.1, MCH 28.0, MCHC 32.1, RDW Std Deviation 44.1 H, RDW Coeff of Paula 14.0, Plt Count 176, MPV 9.6, Immature Gran % (Auto) 0.300, Neut % (Auto) 62.4, Lymph % (Auto) 23.2, Blaine % (Auto) 9.7, Eos % (Auto) 3.2, Baso % (Auto) 1.2 H, Absolute Neuts (auto) 3.7, Absolute Lymphs (auto) 1.39, Nucleated RBC % 0 03/11/20 06:00: Sodium 140, Potassium 4.1, Chloride 103, Carbon Dioxide 32.0, Anion Gap 5, BUN 25 H, Creatinine 1.44 H, Estim Creat Clear Calc 49.39, Est GFR (MDRD) Af Amer 62, Est GFR (MDRD) Non-Af 51 L, BUN/Creatinine Ratio 17.4, Glucose 168 H, Calcium 9.1, TSH 1.38 03/11/20 06:00: Troponin I < 0.015 03/11/20 07:13: POC Glucose 153 H 03/11/20 11:52: POC Glucose 265 H Current Medications Acetaminophen (Acetaminophen 325 Mg Tablet) 650 mg PO Q6H PRN PRN PRN Reason: Pain Score 1-10/Temp > 100.7 F Atorvastatin Calcium (Atorvastatin Calcium 40 Mg Tablet) 40 mg PO QHS [facility] Last Admin: 03/10/20 22:34 Dose: Not Given Documented by: Clopidogrel Bisulfate (Clopidogrel Bisulfate 75 Mg Tablet) 75 mg PO DAILY [facility] Last Admin: 03/11/20 10:26 Dose: 75 mg Documented by: Cyanocobalamin (Cyanocobalamin 500 Mcg Tablet) 500 mcg PO DAILY [facility] Last Admin: 03/11/20 10:26 Dose: 500 mcg Documented by: Dextrose (Dextrose 50%-Water 25 Gm/50 Ml Disp.Syrin) 0 gm IV X1 PRN; Protocol PRN Reason: Hypoglycemia Doxazosin Mesylate (Doxazosin 4 Mg Tablet) 4 mg PO QHS [facility] Last Admin: 03/10/20 22:34 Dose: Not Given Documented by: Empagliflozin (Empagliflozin 10 Mg Tablet) 10 mg PO DAILY [facility] Last Admin: 03/11/20 10:26 Dose: 10 mg Documented by: Finasteride (Finasteride 5 Mg Tablet) 5 mg PO DAILY [facility] Last Admin: 03/11/20 10:26 Dose: 5 mg Documented by: Glucagon (Glucagon 1 Mg/Ml Syringe) 1 mg IM .X1 PRN PRN Reason: Hypoglycemia Hydralazine HCl (Hydralazine 20 Mg/Ml Vial) 5 mg IV Q6H PRN PRN PRN Reason: SBP > 160 OR DBP > 120 Insulin Glargine (Insulin Glargine 100 Units/Ml Pen) 60 units SC DAILY [facility] Insulin Human Lispro (Insulin Lispro 100 Unit/Ml Insuln.Pen) 0 unit SC [facility]; Protocol Magnesium Chloride (Magnesium Chloride 64 Mg Delay Rel.Tablet) 128 mg PO DAILY [facility] Last Admin: 03/11/20 10:26 Dose: 128 mg Documented by: Melatonin (Melatonin 3 Mg Tablet) 3 mg PO QHS PRN PRN PRN Reason: INSOMNIA Multivitamins/Minerals (Multivitamins,Ther W-Minerals Tablet) 1 tablet PO DAILY@0800 [facility] Last Admin: 03/11/20 10:26 Dose: 1 tablet Documented by: Multivitamins/Minerals (Multivitamin (Healthy Eyes) Capsule) 1 capsule PO BID [facility] Last Admin: 03/11/20 10:26 Dose: 1 capsule Documented by: Non-Formulary Medication (Insulin Aspart [Novolog Flexpen]) 8 units SQ BREAKFAST [facility] Non-Formulary Medication (Insulin Aspart [Novolog Flexpen]) 10 unit SQ DINNER [facility] Non-Formulary Medication (Insulin Aspart [Novolog Flexpen]) 11 unit SQ LUNCH [place] Ondansetron HCl (Ondansetron 4 Mg/2 Ml Vial) 4 mg IV Q8H PRN PRN PRN Reason: NAUSEA/VOMITING Senna/Docusate Sodium (Senna/Docusate Sodium 1 Tablet) 2 tablet PO BID PRN PRN PRN Reason: Constipation Sodium Chloride (0.9% Saline Lock 10 Ml Syringe) 10 - 40 ml IV UD PRN PRN Reason: SALINE FLUSH Medical Necessity - Tobacco Use Smoking Status: Former smoker Tobacco Use: Cigarettes Assessment/Plan All Active Problems Dyspnea (Acute) 1. Exertional dyspnea and orthopnea, suspect secondary to heart failure with preserved ejection fraction-BNP normal however chest x-ray with congestion. Echocardiogram September 2017 demonstrated an EF of 65%, stage I diastolic dysfunction, RVSP estimated to be 30 mmHg. Repeat echo pending. Strict I&O. Daily weight. IV Lasix. Plan for stress test in a.m. if patient is able to lie flat. Troponin negative. 2. Type 2 diabetes [id number] with sliding scale insulin. Continue 3 times daily NovoLog and home Lantus regimen. Check hemoglobin A1c. 3. Hypertension-does not appear to be on regimen. Previously on lisinopril. Monitor BP. 4. History of CVA-on statin, Plavix. 5. BPH-on finasteride and Terazosin. 6. Chronic kidney disease stage III-appears at baseline. Trend BMP. DVT prophylaxis- Lovenox sc This patient was seen by HIWOT Griffith under the supervision of Dr. Keen. <David Keen - Last Filed: 03/11/20 15:28> Subjective: Patient was admitted with shortness of breath mainly orthopnea on lying flat, exertional dyspnea. This has been going on for 3 to 4 days. Patient denies any chest pain. During the stress test today he was not able to lay flat and therefore was postponed for tomorrow a.m. Physical exam General: Alert, Oriented x3, Cooperative HEENT: Atraumatic, PERRLA, EOMI, Normocephalic Oral: No Gingival or Mucosal Lesions/ Ulcerations Neck: Supple, elevated bilateral JVD, Negative Carotid Bruits Lungs: Air entry diminished in bilateral lung bases. No crepitation/rhonchi Cardiovascular: Regular rate, Regular Rhythm, Normal S1, Normal S2, No murmurs Abdomen: Bowel Sounds Present, Soft, Non Tender, Non-Distended : No renal angle tenderness. No suprapubic tenderness. Extremities: Mild bilateral ankle edema, Capillary Refill Less than 3 Seconds Skin: No rashes, No breakdown Musculoskeletal: No Tenderness to Palpation of Joints or Extremities Neurological: Cranial nerves II-XII grossly intact, Deep Tendon Reflexes 2+/4 and Symmetrical, Neuro grossly intact Psych/Mental Status: Normal Affect, Appropriate. - Physical Exam Vitals/I&O's: Vital Signs Temp Pulse Resp BP Pulse Ox 98.2 F 102 H 18 145/82 H 95 03/11/20 11:25 03/11/20 15:00 03/11/20 11:25 03/11/20 11:25 03/11/20 11:25 Oxygen Delivery Method Room Air Weight: 219 lb 2.232 oz Body Mass Index (BMI) 31.2 Finger Stick Blood Glucose 91 Intake and Output for Last 24 Hours 03/09/20 03/10/20 03/11/20 23:59 23:59 23:59 Intake Total 200 / 200 340 / 340 Balance 200 / 200 340 / 340 Microbiology Past 72 Hours 03/10/20 18:00 Mucosa - Nose SARS-CoV-2 Antigen (Rapid) - Final Laboratory Results 03/10/20 18:50: WBC 5.6, RBC 5.28, Hgb 15.0, Hct 45.7, MCV 86.6, MCH 28.4, MCHC 32.8, RDW Std Deviation 43.0, RDW Coeff of Paula 13.7, Plt Count 184, MPV 9.6, Immature Gran % (Auto) 0.200, Neut % (Auto) 56.3, Lymph % (Auto) 28.6, Blaine % (Auto) 10.5 H, Eos % (Auto) 3.7, Baso % (Auto) 0.7, Absolute Neuts (auto) 3.2, Absolute Lymphs (auto) 1.61, Nucleated RBC % 0 03/10/20 18:50: D-Dimer Quant (PE/DVT) <= 0.27 03/10/20 18:50: Sodium 141, Potassium 4.2, Chloride 106, Carbon Dioxide 32.0, Anion Gap 3 L, BUN 24 H, Creatinine 1.21, Estim Creat Clear Calc 56.98, Est GFR (MDRD) Af Amer 76, Est GFR (MDRD) Non-Af 63, BUN/Creatinine Ratio 19.8, Glucose 89, Calcium 9.1, Troponin I < 0.015 03/10/20 18:50: B-Natriuretic Peptide 3.1 03/10/20 20:13: POC Glucose 91 03/10/20 21:42: POC Glucose 91 03/11/20 06:00: WBC 6.0, RBC 5.36, Hgb 15.0, Hct 46.7, MCV 87.1, MCH 28.0, MCHC 32.1, RDW Std Deviation 44.1 H, RDW Coeff of Paula 14.0, Plt Count 176, MPV 9.6, Immature Gran % (Auto) 0.300, Neut % (Auto) 62.4, Lymph % (Auto) 23.2, Blaine % (Auto) 9.7, Eos % (Auto) 3.2, Baso % (Auto) 1.2 H, Absolute Neuts (auto) 3.7, Absolute Lymphs (auto) 1.39, Nucleated RBC % 0 03/11/20 06:00: Sodium 140, Potassium 4.1, Chloride 103, Carbon Dioxide 32.0, Anion Gap 5, BUN 25 H, Creatinine 1.44 H, Estim Creat Clear Calc 49.39, Est GFR (MDRD) Af Amer 62, Est GFR (MDRD) Non-Af 51 L, BUN/Creatinine Ratio 17.4, Glucose 168 H, Calcium 9.1, TSH 1.38 03/11/20 06:00: Troponin I < 0.015 03/11/20 06:00: Hemoglobin A1c 7.4 H 03/11/20 07:13: POC Glucose 153 H 03/11/20 11:52: POC Glucose 265 H Current Medications Acetaminophen (Acetaminophen 325 Mg Tablet) 650 mg PO Q6H PRN PRN PRN Reason: Pain Score 1-10/Temp > 100.7 F Atorvastatin Calcium (Atorvastatin Calcium 40 Mg Tablet) 40 mg PO QHS [facility] Last Admin: 03/10/20 22:34 Dose: Not Given Documented by: Clopidogrel Bisulfate (Clopidogrel Bisulfate 75 Mg Tablet) 75 mg PO DAILY [facility] Last Admin: 03/11/20 10:26 Dose: 75 mg Documented by: Cyanocobalamin (Cyanocobalamin 500 Mcg Tablet) 500 mcg PO DAILY [facility] Last Admin: 03/11/20 10:26 Dose: 500 mcg Documented by: Dextrose (Dextrose 50%-Water 25 Gm/50 Ml Disp.Syrin) 0 gm IV X1 PRN; Protocol PRN Reason: Hypoglycemia Doxazosin Mesylate (Doxazosin 4 Mg Tablet) 4 mg PO QHS [facility] Last Admin: 03/10/20 22:34 Dose: Not Given Documented by: Empagliflozin (Empagliflozin 10 Mg Tablet) 10 mg PO DAILY [facility] Last Admin: 03/11/20 10:26 Dose: 10 mg Documented by: Enoxaparin Sodium (Enoxaparin 40 Mg/0.4 Ml Syringe) 40 mg SC DAILY [facility] Finasteride (Finasteride 5 Mg Tablet) 5 mg PO DAILY [facility] Last Admin: 03/11/20 10:26 Dose: 5 mg Documented by: Furosemide (Furosemide 40 Mg/4 Ml Vial) 40 mg IV BID@1000,1800 [facility] Last Admin: 03/11/20 13:27 Dose: 40 mg Documented by: Glucagon (Glucagon 1 Mg/Ml Syringe) 1 mg IM .X1 PRN PRN Reason: Hypoglycemia Hydralazine HCl (Hydralazine 20 Mg/Ml Vial) 5 mg IV Q6H PRN PRN PRN Reason: SBP > 160 OR DBP > 120 Insulin Glargine (Insulin Glargine 100 Units/Ml Pen) 60 units SC DAILY [facility] Insulin Human Lispro (Insulin Lispro 100 Unit/Ml Insuln.Pen) 8 unit SC BREAKFAST [facility] Insulin Human Lispro (Insulin Lispro 100 Unit/Ml Insuln.Pen) 10 unit SC DINNER [facility] Insulin Human Lispro (Insulin Lispro 100 Unit/Ml Insuln.Pen) 11 unit SC LUNCH [facility] Last Admin: 03/11/20 13:22 Dose: 11 u Documented by: Insulin Human Lispro (Insulin Lispro 100 Unit/Ml Insuln.Pen) 0 unit SC ACHS [facility]; Protocol Last Admin: 03/11/20 13:22 Dose: 2 u Documented by: Magnesium Chloride (Magnesium Chloride 64 Mg Delay Rel.Tablet) 128 mg PO DAILY [facility] Last Admin: 03/11/20 10:26 Dose: 128 mg Documented by: Melatonin (Melatonin 3 Mg Tablet) 3 mg PO QHS PRN PRN PRN Reason: INSOMNIA Multivitamins/Minerals (Multivitamins,Ther W-Minerals Tablet) 1 tablet PO DAILY@0800 [facility] Last Admin: 03/11/20 10:26 Dose: 1 tablet Documented by: Multivitamins/Minerals (Multivitamin (Healthy Eyes) Capsule) 1 capsule PO BID [facility] Last Admin: 03/11/20 10:26 Dose: 1 capsule Documented by: Ondansetron HCl (Ondansetron 4 Mg/2 Ml Vial) 4 mg IV Q8H PRN PRN PRN Reason: NAUSEA/VOMITING Senna/Docusate Sodium (Senna/Docusate Sodium 1 Tablet) 2 tablet PO BID PRN PRN PRN Reason: Constipation Sodium Chloride (0.9% Saline Lock 10 Ml Syringe) 10 - 40 ml IV UD PRN PRN Reason: SALINE FLUSH Last Admin: 03/11/20 13:27 Dose: 10 ml Documented by: Assessment/Plan This patient was seen in conjunction with Ghazal LEDEZMA. I have independently interviewed and examined the patient and reviewed pertinent history, examination findings, laboratory and plan of management. I have reviewed the note and agree with the documented findings with the few additional points. In brief, patient is admitted with orthopnea and exertional dyspnea secondary to CHF exacerbation, acute on chronic diastolic heart failure/HFpEF. Last echo in September 2018 patient had EF 65% stage I respiratory dysfunction. On IV Lasix. 2D echo is ordered. Serial troponins negative. Type 2 diabetes mellitus Other comorbidities include hypertension, CVA, BPH and chronic kidney disease stage III I have discussed my assessment with Ghazal LEDEZMA and orders have been reviewed. Central patient gentleman admitted with exertional dyspnea and orthopnea Inpatient E&M: [id number] [facility] Hosp L2
[2020-03-11] MEDS: Insulin Lispro 100 UNIT/ML INSULN.PEN SC ×3 (13:22→21:54)
[2020-03-11] MEDS: Insulin Lispro 100 UNIT/ML INSULN.PEN 11 UNIT SC (13:22)
[2020-03-11] MEDS: Furosemide 40 MG/4 ML Vial IV ×2 (13:27→17:07)
[2020-03-11] MEDS: 0.9% Saline Lock 10 ML Syringe IV ×2 (13:27→17:06)
[2020-03-11 13:46] LABS: Hemoglobin A1c 7.4 % (3.8-5.6)
[2020-03-11 16:30] LABS: Bedside Glucose 189 mg/dL (70-110)
[2020-03-11] MEDS: Insulin Lispro 100 UNIT/ML INSULN.PEN 10 UNIT SC (17:04)
[2020-03-11] MEDS: Doxazosin 4 MG Tablet PO (21:53)
[2020-03-11] MEDS: Atorvastatin Calcium 40 MG Tablet PO (21:55)
[2020-03-11 23:31] LABS: Bedside Glucose 221 mg/dL (70-110)
[2020-03-12] VITALS (9 sets, daily range): BP systolic 129–151; BP diastolic 74–83; PULSE 80–120; RESP 18; TEMP 36.4–36.8; O2SAT 92–97
--- NOTE | 2020-03-12 05:55 | EKG12_ITS ---
Test Reason : AM EKG Blood Pressure : / mmHG Vent. Rate : 107 BPM Atrial Rate : 107 BPM P-R Int : 194 ms QRS Dur : 082 ms QT Int : 336 ms P-R-T Axes : 055 030 -08 degrees QTc Int : 448 ms Sinus tachycardia Low Voltage QRS (Limb Leads) Confirmed by SLAVA GONZALEZ, ADORE ([id number]), magazine editor KATIANA ANDRES ([id number]) on 03/19/2020 9:52:51 AM Referred By: DR FLORES Confirmed By:ADORE PEDERSEN MD
[2020-03-12 06:35] LABS: Anion Gap 6 (5-15); BUN 38 mg/dL (7-18); BUN/Creat Ratio 22.1 RATIO (10-20); Calcium,Total 9.5 mg/dL (8.5-10.1); Chloride 99 mmol/L (98-107); Creatinine, Serum 1.72 mg/dL (0.70-1.30); EST Glomerular Filtration Rate 42 mL/min (>60); Est Glom Filt Rate - Afr Amer 50 mL/min (>60); Estimated Creatinine Clearance 41.35 ml/min; Glucose 220 mg/dL (74-106); Sodium Level 136 mmol/L (136-145)
[2020-03-12] MEDS: Clopidogrel Bisulfate 75 MG Tablet PO (06:44)
[2020-03-12 06:51] LABS: Bedside Glucose 225 mg/dL (70-110)
[2020-03-12] MEDS: 0.9% Saline Lock 10 ML Syringe IV (08:03)
[2020-03-12] MEDS: Magnesium Chloride 64 MG Delay Rel.Tablet 128 MG PO (11:07)
[2020-03-12] MEDS: Cyanocobalamin 500 MCG Tablet PO (11:07)
[2020-03-12] MEDS: Multivitamins,Ther W-Minerals Tablet 1 TABLET PO (11:07)
[2020-03-12] MEDS: Multivitamin (Healthy Eyes) Capsule 1 CAP PO (11:07)
[2020-03-12] MEDS: Finasteride 5 MG Tablet PO (11:07)
[2020-03-12] MEDS: Empagliflozin 10 MG Tablet PO (11:07)
[2020-03-12] MEDS: Insulin Lispro 100 UNIT/ML INSULN.PEN SC (11:08)
[2020-03-12 11:25] LABS: Bedside Glucose 316 mg/dL (70-110)
[2020-03-12] MEDS: Insulin Lispro 100 UNIT/ML INSULN.PEN 11 UNIT SC (12:41)
[2020-03-12 12:45] LABS: Bedside Glucose 266 mg/dL (70-110)
--- NOTE | 2020-03-12 13:36 | STRESSREP ---
Stress Test Report Date: 03-12-2020 Procedure: Pharmacologic stress nuclear imaging study Indications: Chest pain Consent: Per the patient Procedure: The patient underwent pharmacologic (Regadenoson) evaluation with a peak heart rate of 118 beats per minute (79%predicted maximal heart rate) and a peak blood pressure of 122/70 mmHg. The baseline ECG demonstrated sinus rhythm; nonspecific ST/T wave abnormality. The peak pharmacologic ECG demonstrated no obvious ECG changes. There were no cardiac dysrhythmias pretest, during pharmacologic infusion, or recovery. There was no complaint of chest discomfort during pharmacologic infusion or recovery. The examination was discontinued secondary to completion of protocol. Impression: 1. Pharmacologic (Regadenoson) evaluation 2. Peak pharmacologic ECG with continued nonspecific ST/T wave abnormality. 3. There were no cardiac dysrhythmias pretest, during pharmacologic infusion, or recovery. 4. Nuclear images pending Myocardial perfusion imaging study: Technique: The patient was injected with 14.7 millicuries of technetium 99m Cardiolite and subsequently rest SPECT Cardiolite nuclear imaging was obtained in the horizontal long, vertical long, and short axis views. The patient underwent pharmacologic (Regadenoson) evaluation with a peak heart rate of 118 beats per minute (79% percent predicted maximal heart rate) and a peak blood pressure of 122/70 mmHg. The patient was injected with 44.8 millicuries of technetium 99m Cardiolite and subsequently stress SPECT Cardiolite nuclear imaging was obtained in the horizontal long, vertical long, and short axis views. A gated Cardiolite study at peak stress was obtained. Interpretation: Rest and stress SPECT Cardiolite nuclear imaging status post realignment, normalization, and attenuation correction demonstrate relative uniform tracer uptake and myocardial perfusion appearing within normal limits. There is end systolic thickening and brightening. The gated Cardiolite study demonstrates myocardial thickening and inward wall motion. The reported LVEF is 74%. Impression: 1. Rest and stress SPECT Cardiolite nuclear imaging demonstrate relative uniform tracer uptake and myocardial perfusion appearing within normal limits. 2. The gated Cardiolite study reports an LVEF of 74%. This note was generated with [employer]oyushang[employer] software. It may contain incorrect words, spelling, and punctuation that were not noted in checking the note before signing.
--- NOTE | 2020-03-12 14:04 | DCINST_ITS ---
- Discharge Diagnoses Current Active Problems: Current Active and Chronic Problems Ischemic stroke (Chronic) Diabetic peripheral neuropathy (Chronic) Dyspnea (Acute) Benign prostatic hyperplasia (Chronic) Hyperlipidemia (Chronic) Hypertension (Chronic) Type 2 diabetes mellitus (Chronic) You will use the following diet at home:: Cardiac Discharge Activity: Return to Normal Activity Call your doctor if you observe: Shortness of breath, Dizziness, Fainting spells, Chest pain Allergies/Adverse Reactions: Allergies No Known Allergies Allergy (Verified 03/10/20 16:56) Medications to take at Discharge Atorvastatin Calcium 40 mg PO QHS 03/10/20 Cholecalciferol (Vitamin D3) [Vitamin D3] 75 mcg PO DAILY 03/10/20 Clopidogrel Bisulfate [Plavix] 75 mg PO DAILY 03/10/20 Cyanocobalamin (Vitamin B-12) [Vitamin B-12] 500 mcg PO DAILY 03/10/20 Empagliflozin [Jardiance] 10 mg PO DAILY 03/10/20 Finasteride 5 mg PO DAILY 03/10/20 Insulin Aspart [Novolog Flexpen] 8 units SQ BREAKFAST 03/10/20 Insulin Aspart [Novolog Flexpen] 10 unit SQ DINNER 03/10/20 Insulin Aspart [Novolog Flexpen] 11 unit SQ LUNCH 03/10/20 Insulin Glargine [Lantus SoloStar Pen] 60 units SC DAILY 03/10/20 Magnesium Oxide [Magnesium] 500 mg PO DAILY 03/10/20 Multivit-Mins/Iron/Folic/Lycop [Centrum Men's Tablet] 1 tab PO DAILY 03/10/20 [place]-3 Fatty Acids/Fish Oil [Fish Oil 1,000 mg Capsule] 1 cap PO TIDCM 03/10/20 Terazosin HCl 5 mg PO QHS 03/10/20 Vit A/Vit C/Vit E/Zinc/Copper [Preservision Areds Tablet] 1 tab PO BID 03/10/20 Primary Care Physician: Emilie Hyatt DO [Primary Care Provider] - Please follow up with your Primary Care Physician in: 1 Week Test Results: Test results from this visit will be discussed in further detail at your follow- up appointment, if applicable. Proposed Discharge Date: 03/12/20
--- NOTE | 2020-03-12 14:06 | PCM.DC.SUM ---
<Ghazal Dumont AUDIT OFFICER - Last Filed: 03/12/20 14:11> Discharge Date and Diagnosis - Problem List Patient Problems: Active and Suspected Problems Dyspnea (Acute) Date of Admission: 03/10/20 Date of Discharge: 03/12/20 - Primary Discharge Diagnosis Acute Problems: Active Problems 1. Acute on chronic heart failure with preserved ejection fraction 2. Type 2 diabetes mellitus 3. Hypertension 4. History of CVA 5. BPH 6. Chronic kidney disease stage III - Secondary Discharge Diagnosis Chronic Problems: Chronic Problems Ischemic stroke (Chronic) Diabetic peripheral neuropathy (Chronic) Benign prostatic hyperplasia (Chronic) Hyperlipidemia (Chronic) Hypertension (Chronic) Type 2 diabetes mellitus (Chronic) Hospital Course and Treatment Imaging Results: Diagnostic Data Chest X-Ray 03/10/20 17:35 IMPRESSION: Mild interstitial edema or early infiltrates. Electronically Signed: Ruiz Kelly MD at 18:06 EST , Service support , Operations: None Procedures: 2-D Echocardiogram, Stress test Summary of Care Provided: The patient is a 74 year old M admitted 03/10/2020 due to dyspnea. 1. Exertional dyspnea and orthopnea, secondary to heart failure with preserved ejection fraction-BNP normal however chest x-ray with congestion. Echocardiogram September 2017 demonstrated an EF of 65%, stage I diastolic dysfunction, RVSP estimated to be 30 mmHg. Troponin negative. Repeat echo demonstrates an EF of 65%. Patient underwent nuclear stress test which was negative for ischemia. Symptoms resolved with diuresis with IV Lasix. Further Lasix discontinued due to increasing creatinine. Follow-up with primary care physician in 1 week. Patient did not require supplemental oxygen. 2. Type 2 diabetes mellitus-continue home oral and insulin regimen. Hemoglobin A1c 7.4%. 3. Hypertension-does not appear to be on regimen. Previously on lisinopril. BP stable. 4. History of CVA-on statin, Plavix. 5. BPH-on finasteride and Terazosin. 6. Chronic kidney disease stage III-mildly increased from baseline following IV Lasix. Stable. General: Alert, Oriented x3, Cooperative HEENT: Atraumatic, PERRLA, EOMI, Normocephalic Neck: Supple, No JVD, Negative Carotid Bruits Lungs: Clear to auscultation, Diminished Cardiovascular: Regular rate, No murmurs Abdomen: Bowel Sounds Present, Soft, Non Tender Extremities: No clubbing, No cyanosis, No edema, Capillary Refill Less than 3 Seconds Skin: No rashes, No breakdown Musculoskeletal: No Tenderness to Palpation of Joints or Extremities Neurological: Cranial nerves II-XII grossly intact, Neuro grossly intact Psych/Mental Status: Normal Affect, Appropriate Patient seen and examined prior to discharge. Physical assessment as noted above. Patient is stable for discharge with follow up recommendations as noted above. This patient was seen by [facility] Griffith under the supervision of Dr. Keen. Patient Problems: Active and Suspected Problems Dyspnea (Acute) - Physical Exam Vitals/I&O's: Vital Signs Temp Pulse Resp BP Pulse Ox 97.8 F 80 18 129/74 H 95 03/12/20 11:00 03/12/20 11:00 03/12/20 11:00 03/12/20 11:00 03/12/20 11:00 Oxygen Delivery Method Room Air Weight: 213 lb 2.992 oz Body Mass Index (BMI) 31.2 Finger Stick Blood Glucose 91 Intake and Output for Last 24 Hours 03/10/20 03/11/20 03/12/20 23:59 23:59 23:59 Intake Total 200 / 200 580 / 580 240 / 240 Balance 200 / 200 580 / 580 240 / 240 Microbiology Past 72 Hours 03/10/20 18:00 Mucosa - Nose SARS-CoV-2 Antigen (Rapid) - Final Laboratory Results 03/11/20 16:18: POC Glucose 189 H 03/11/20 21:52: POC Glucose 221 H 03/12/20 05:16: Sodium 136, Potassium 4.0, Chloride 99, Carbon Dioxide 31.0, Anion Gap 6, BUN 38 H, Creatinine 1.72 H, Estim Creat Clear Calc 41.35, Est GFR (MDRD) Af Amer 50 L, Est GFR (MDRD) Non-Af 42 L, BUN/Creatinine Ratio 22.1 H, Glucose 220 H, Calcium 9.5 03/12/20 06:42: POC Glucose 225 H 03/12/20 11:05: POC Glucose 316 H 03/12/20 12:40: POC Glucose 266 H Current Medications Acetaminophen (Acetaminophen 325 Mg Tablet) 650 mg PO Q6H PRN PRN PRN Reason: Pain Score 1-10/Temp > 100.7 F Atorvastatin Calcium (Atorvastatin Calcium 40 Mg Tablet) 40 mg PO QHS [facility] Last Admin: 03/11/20 21:55 Dose: 40 mg Documented by: Clopidogrel Bisulfate (Clopidogrel Bisulfate 75 Mg Tablet) 75 mg PO DAILY [facility] Last Admin: 03/12/20 06:44 Dose: 75 mg Documented by: Cyanocobalamin (Cyanocobalamin 500 Mcg Tablet) 500 mcg PO DAILY [facility] Last Admin: 03/12/20 11:07 Dose: 500 mcg Documented by: Dextrose (Dextrose 50%-Water 25 Gm/50 Ml Disp.Syrin) 0 gm IV X1 PRN; Protocol PRN Reason: Hypoglycemia Doxazosin Mesylate (Doxazosin 4 Mg Tablet) 4 mg PO QHS [facility] Last Admin: 03/11/20 21:53 Dose: 4 mg Documented by: Empagliflozin (Empagliflozin 10 Mg Tablet) 10 mg PO DAILY [facility] Last Admin: 03/12/20 11:07 Dose: 10 mg Documented by: Enoxaparin Sodium (Enoxaparin 40 Mg/0.4 Ml Syringe) 40 mg SC DAILY [facility] Last Admin: 03/12/20 08:00 Dose: Not Given Documented by: Finasteride (Finasteride 5 Mg Tablet) 5 mg PO DAILY [facility] Last Admin: 03/12/20 11:07 Dose: 5 mg Documented by: Glucagon (Glucagon 1 Mg/Ml Syringe) 1 mg IM .X1 PRN PRN Reason: Hypoglycemia Hydralazine HCl (Hydralazine 20 Mg/Ml Vial) 5 mg IV Q6H PRN PRN PRN Reason: SBP > 160 OR DBP > 120 Insulin Glargine (Insulin Glargine 100 Units/Ml Pen) 60 units SC DAILY [facility] Last Admin: 03/12/20 11:14 Dose: Not Given Documented by: Insulin Human Lispro (Insulin Lispro 100 Unit/Ml Insuln.Pen) 8 unit SC BREAKFAST [facility] Last Admin: 03/12/20 08:00 Dose: Not Given Documented by: Insulin Human Lispro (Insulin Lispro 100 Unit/Ml Insuln.Pen) 10 unit SC DINNER [facility] Last Admin: 03/11/20 17:04 Dose: 10 u Documented by: Insulin Human Lispro (Insulin Lispro 100 Unit/Ml Insuln.Pen) 11 unit SC LUNCH [facility] Last Admin: 03/12/20 12:41 Dose: 11 u Documented by: Insulin Human Lispro (Insulin Lispro 100 Unit/Ml Insuln.Pen) 0 unit SC [facility]; Protocol Last Admin: 03/12/20 11:08 Dose: 3 u Documented by: Magnesium Chloride (Magnesium Chloride 64 Mg Delay Rel.Tablet) 128 mg PO DAILY [facility] Last Admin: 03/12/20 11:07 Dose: 128 mg Documented by: Melatonin (Melatonin 3 Mg Tablet) 3 mg PO QHS PRN PRN PRN Reason: INSOMNIA Multivitamins/Minerals (Multivitamins,Ther W-Minerals Tablet) 1 tablet PO DAILY@0800 [facility] Last Admin: 03/12/20 11:07 Dose: 1 tablet Documented by: Multivitamins/Minerals (Multivitamin (Healthy Eyes) Capsule) 1 capsule PO BID [facility] Last Admin: 03/12/20 11:07 Dose: 1 capsule Documented by: Ondansetron HCl (Ondansetron 4 Mg/2 Ml Vial) 4 mg IV Q8H PRN PRN PRN Reason: NAUSEA/VOMITING Senna/Docusate Sodium (Senna/Docusate Sodium 1 Tablet) 2 tablet PO BID PRN PRN PRN Reason: Constipation Sodium Chloride (0.9% Saline Lock 10 Ml Syringe) 10 - 40 ml IV UD PRN PRN Reason: SALINE FLUSH Last Admin: 03/12/20 08:03 Dose: 10 ml Documented by: Discharge Diet: Low fat/ Low Cholesterol Discharge Activity: Return to Normal Activity Call your doctor if you observe: Shortness of breath, Dizziness, Fainting spells, Chest pain Home Medications: Medications to take at Discharge Atorvastatin Calcium 40 mg PO QHS 03/10/20 Cholecalciferol (Vitamin D3) [Vitamin D3] 75 mcg PO DAILY 03/10/20 Clopidogrel Bisulfate [Plavix] 75 mg PO DAILY 03/10/20 Cyanocobalamin (Vitamin B-12) [Vitamin B-12] 500 mcg PO DAILY 03/10/20 Empagliflozin [Jardiance] 10 mg PO DAILY 03/10/20 Finasteride 5 mg PO DAILY 03/10/20 Insulin Aspart [Novolog Flexpen] 8 units SQ BREAKFAST 03/10/20 Insulin Aspart [Novolog Flexpen] 10 unit SQ DINNER 03/10/20 Insulin Aspart [Novolog Flexpen] 11 unit SQ LUNCH 03/10/20 Insulin Glargine [Lantus SoloStar Pen] 60 units SC DAILY 03/10/20 Magnesium Oxide [Magnesium] 500 mg PO DAILY 03/10/20 Multivit-Mins/Iron/Folic/Lycop [Centrum Men's Tablet] 1 tab PO DAILY 03/10/20 [place]-3 Fatty Acids/Fish Oil [Fish Oil 1,000 mg Capsule] 1 cap PO TIDCM 03/10/20 Terazosin HCl 5 mg PO QHS 03/10/20 Vit A/Vit C/Vit E/Zinc/Copper [Preservision Areds Tablet] 1 tab PO BID 03/10/20 Primary Care Physician: Emilie Hyatt DO [Primary Care Provider] - Please follow up with your Primary Care Physician in: 1 Week Disposition: Home Minutes spent on discharge:: 35 Patient Condition:: Stable Medical Necessity - Tobacco Use Smoking Status: Former smoker Tobacco Use: Cigarettes Meaningful Use Info Meaningful Use Diagnoses (Choose all that apply): CHF - CHF MASOUD/ARB ordered at discharge?: No Reason MASOUD/ARB not ordered?: Worsening renal function Documented LVEF (%): 60 <David Keen - Last Filed: 03/12/20 17:25> Discharge Date and Diagnosis - Primary Discharge Diagnosis Acute Problems: Active Problems Dyspnea (Acute) - Secondary Discharge Diagnosis Chronic Problems: Chronic Problems Ischemic stroke (Chronic) Diabetic peripheral neuropathy (Chronic) Benign prostatic hyperplasia (Chronic) Hyperlipidemia (Chronic) Hypertension (Chronic) Type 2 diabetes mellitus (Chronic) Hospital Course and Treatment Summary of Care Provided: T [] This patient was seen in conjunction with AUDIT OFFICER, Ghazal. I have independently interviewed and examined the patient and reviewed pertinent history, examination findings, laboratory and plan of management. I have reviewed the note and agree with the documented findings with the few additional points. In brief, patient is admitted with orthopnea and exertional dyspnea secondary to CHF exacerbation, acute on chronic diastolic heart failure/HFpEF. Last echo in September 2018 patient had EF 65% stage I respiratory dysfunction. On IV Lasix. 2D echo is ordered. Serial troponins negative. Patient was treated with Lasix during hospital stay but discontinued due to increasing BUN/creatinine. Patient mild ankle edema and chest congestion resolved. Pulse ox 95% on room air at rest; 97% at rest on ambulation. Repeat echo shows EF 65%. Patient had a stress test which was negative for stress-induced ischemia. Type 2 diabetes mellitus: A1c 7.4%. Other comorbidities include hypertension, CVA, BPH and chronic kidney disease stage III Discharge medication reconciliation done. Discharge follow-up instructions completed. Discharge process discussed with the patient and all questions were answered to patient's satisfaction. Total time spent, exact 35 minutes on discharge meds reconciliation, examination, coordination of care with nurses and ancillary staff, review of imaging and blood test and discussion with the patient on follow-up instructions I have discussed my assessment with AUDIT OFFICER, Ghazal and orders have been reviewed. Objective: Patient heart rate and blood pressure in acceptable limit. Pulse ox 95% at rest on room air, 97% ambulating on room air. Patient BUN/creatinine went up 38/1.72 mainly due to Lasix. Physical exam General: Alert, Oriented x3, Cooperative HEENT: Atraumatic, PERRLA, EOMI, Normocephalic Oral: No Gingival or Mucosal Lesions/ Ulcerations Neck: Supple, elevated bilateral JVD, Negative Carotid Bruits Lungs: Air entry diminished in bilateral lung bases. No crepitation/rhonchi Cardiovascular: Regular rate, Regular Rhythm, Normal S1, Normal S2, No murmurs Abdomen: Bowel Sounds Present, Soft, Non Tender, Non-Distended : No renal angle tenderness. No suprapubic tenderness. Extremities: Leg edema has resolved. Capillary Refill Less than 3 Seconds Skin: No rashes, No breakdown Musculoskeletal: No Tenderness to Palpation of Joints or Extremities Neurological: Cranial nerves II-XII grossly intact, Deep Tendon Reflexes 2+/4 and Symmetrical, Neuro grossly intact Psych/Mental Status: Normal Affect, Appropriate. - Physical Exam Vitals/I&O's: Vital Signs Temp Pulse Resp BP Pulse Ox 97.6 F L 97 18 151/83 H 97 03/12/20 14:27 03/12/20 14:27 03/12/20 14:27 03/12/20 14:27 03/12/20 14:36 Oxygen Flow Rate (L/min) [ 0 AMBULATING on Room Air] Oxygen Flow Rate (L/min) [At 0 REST on Room Air] Oxygen Delivery Method Room Air Weight: 213 lb 2.992 oz Body Mass Index (BMI) 31.2 Finger Stick Blood Glucose 91 Intake and Output for Last 24 Hours 03/10/20 03/11/20 03/12/20 23:59 23:59 23:59 Intake Total 200 / 200 580 / 580 240 / 240 Balance 200 / 200 580 / 580 240 / 240 Microbiology Past 72 Hours 03/10/20 18:00 Mucosa - Nose SARS-CoV-2 Antigen (Rapid) - Final Laboratory Results 03/11/20 21:52: POC Glucose 221 H 03/12/20 05:16: Sodium 136, Potassium 4.0, Chloride 99, Carbon Dioxide 31.0, Anion Gap 6, BUN 38 H, Creatinine 1.72 H, Estim Creat Clear Calc 41.35, Est GFR (MDRD) Af Amer 50 L, Est GFR (MDRD) Non-Af 42 L, BUN/Creatinine Ratio 22.1 H, Glucose 220 H, Calcium 9.5 03/12/20 06:42: POC Glucose 225 H 03/12/20 11:05: POC Glucose 316 H 03/12/20 12:40: POC Glucose 266 H OBSV E&M: [id number] Observation care discharge
== END 2020-03-12 14:05 | disposition home or self-care (01) ==
LOC: ED 17:45 → PCU 20:01
PROVIDERS: Nurse Practitioner Family; Admitting Provider Hospitalist; Emergency Provider Emergency Medicine; PCP Family Medicine; Visit Provider Internal Medicine
DX: I13.0 Hypertensive heart and chronic kidney disease with heart failure and stage 1 through stage 4 chronic kidney disease, or unspecified chronic kidney disease (principal); E11.22 Type 2 diabetes mellitus with diabetic chronic kidney disease; I50.33 Acute on chronic diastolic (congestive) heart failure; N18.30 Chronic kidney disease, stage 3 unspecified; N40.0 Benign prostatic hyperplasia without lower urinary tract symptoms; E78.5 Hyperlipidemia, unspecified; J45.909 Unspecified asthma, uncomplicated; Z86.73 Personal history of transient ischemic attack (TIA), and cerebral infarction without residual deficits; Z87.891 Personal history of nicotine dependence; Z79.899 Other long term (current) drug therapy; Z79.4 Long term (current) use of insulin; Z79.02 Long term (current) use of antithrombotics/antiplatelets; E11.42 Type 2 diabetes mellitus with diabetic polyneuropathy; R94.31 Abnormal electrocardiogram [ECG] [EKG]
CPT/HCPCS: 36415; 71045; 78452; 80048; 82962; 83036; 83880; 84443; 84484; 85025; 85379; 87426; 93005; 93017; 93306; 96374; 96376; 99218; 99285; A9500; A4216; G0378; J1940; J2785

== ENCOUNTER 2022-01-25 11:01 | Emergency (ER) | payer OTHER, SELFPAY ==
[2022-01-25 11:02] VITALS: BP 122/58; PULSE 106; RESP 18; TEMP 37.1; O2SAT 86; BMI 29.1
[2022-01-25 11:28] VITALS: PULSE 74; RESP 18; O2SAT 93
[2022-01-25 12:57] LABS: Absolute Lymphocyte Count 1.01 X10^3/uL (0.83-4.51); Absolute Neutrophil Count 4.7 X10^3/uL (2.0-7.7); Basophil# 0.06 X10^3/uL; Basophil% 0.9 % (0-1); Eosinophil# 0.48 X10^3/uL; Hematocrit 44.1 % (40-54); Hemoglobin 12.6 g/dL (13.0-16.5); Lymphocyte # 1.01 X10^3/ul (0.83-4.51); Lymphocyte % 14.6 % (19-41); Mean Corp Hgb Conc 28.6 g/dL (32-36); Mean Corpuscular Volume 90.9 fL (80-94); Mean Platelet Vol. 9.5 fl (6.2-12.0); Monocyte# 0.63 X10^3/uL; Monocyte% 9.1 % (0-10); NRBC Flagged by Analyzer 0 % (0-5); Neutrophil % 68.1 % (47-70); Platelet Count 191 K/mm3 (150-450); RBC Distribution Width CV 17.2 % (11.6-14.6); RBC Distribution Width SD 56.6 fl (35.1-43.9); Red Blood Count 4.85 M/mm3 (4.6-6.2); White Blood Count 6.9 K/mm3 (4.4-11.0)
[2022-01-25 13:07] LABS: Anion Gap 1 (5-15); BUN 37 mg/dL (7-18); BUN/Creat Ratio 25.7 RATIO (10-20); Calcium,Total 8.5 mg/dL (8.5-10.1); Chloride 103 mmol/L (98-107); Creatinine, Serum 1.44 mg/dL (0.70-1.30); EST Glomerular Filtration Rate 51 mL/min (>60); Est Glom Filt Rate - Afr Amer 62 mL/min (>60); Glucose 187 mg/dL (74-106); Potassium 5.9 mmol/L (3.5-5.1); Sodium Level 139 mmol/L (136-145)
--- NOTE | 2022-01-25 13:16 | EDS_ITS ---
HPI History of Present Illness Chief Complaint: Wound Detail of Chief Complaint: Wound distal anterior right leg and dorsal distal left forearm Informant: patient Onset/Context/Timing Onset: Days (Left forearm) and Weeks (Right leg) Context: Sudden Onset Timing: Continuous Quality: Open wounds, erythema and drainage leg wound only Location: Left forearm and right leg. Current Severity: Mild Maximum Severity: Mild Worsened by: Initial injury of the right leg was 2 years ago. Associated Symptoms Associated Symptoms: None Narrative Narrative: Patient is 76-year-old male who presents because wounds will not heal and he does not have a doctor. He is on chronic O2. He does not use his O2 as instructed. He denies fever, chills night sweats. He does not check his blood sugar on the regular basis. He denies polyuria, polydipsia or blurred vision. He purchased some type of dressing at the pharmacy and applied it to the wounds. The dressings are occlusive. Prior similar symptoms: Yes Recent Illness/Hospitalization: No PFSH PFS Medical History COPD (chronic obstructive pulmonary disease) Diabetes Hypertension Stroke/cerebrovascular accident Home Medications Cholecalciferol (Vitamin D3) [Vitamin D3] 75 mcg PO DAILY supplement 03/10/20 [History Last Taken 03/10/20] atorvastatin 40 mg tablet 80 mg PO QHS cholesterol 03/10/20 [History Last Taken 03/09/20] clopidogrel 75 mg tablet 75 mg PO DAILY stroke 03/10/20 [History Last Taken 03/10/20] cyanocobalamin (vitamin B-12) 500 mcg tablet 500 mcg PO DAILY supplement 03/10/20 [History Last Taken 03/10/20] empagliflozin 10 mg tablet 10 mg PO DAILY dm 03/10/20 [History Last Taken 03/10/20] finasteride 5 mg tablet 5 mg PO DAILY prostate 03/10/20 [History Last Taken 03/10/20] insulin aspart U-100 100 unit/mL (3 mL) subcutaneous pen 8 units SQ BREAKFAST dm 03/10/20 [History Last Taken 03/10/20] insulin aspart U-100 100 unit/mL (3 mL) subcutaneous pen 10 unit SQ DINNER dm 03/10/20 [History Last Taken 03/09/20] insulin aspart U-100 100 unit/mL (3 mL) subcutaneous pen 11 unit SQ LUNCH dm 03/10/20 [History Last Taken 03/10/20] insulin glargine 100 unit/mL (3 mL) subcutaneous pen 60 units subcut DAILY dm 03/10/20 [History Last Taken 03/09/20] magnesium oxide 500 mg capsule 500 mg PO DAILY supplement 03/10/20 [History Last Taken 03/10/20] multivit,Ca,min-iron 8 mg-folic acid 200 mcg-lycopene 600 mcg tablet 1 tab PO DAILY supplement 03/10/20 [History Last Taken 03/10/20] omega-3 fatty acids-fish oil 340 mg-1,000 mg capsule 1 cap PO TIDCM supplement 03/10/20 [History Last Taken 03/10/20] terazosin 5 mg capsule 5 mg PO QHS prostate 03/10/20 [History Last Taken 03/09/20] vitamins A,C,X-kybq-rzbfbp 2,148 mcg-113 mg-45 mg-17.4 mg tablet 1 tab PO BID eye health 03/10/20 [History Last Taken 03/10/20] albuterol 90 mcg/actuation aerosol inhaler 1 - 2 mcg inhalation Q6H PRN PRN Shortness Of Breath 01/25/22 [History Last Taken Unknown] doxycycline monohydrate 100 mg capsule 100 mg PO BID #14 CAPSULES 01/25/22 [Rx Last Taken Unknown] Allergy/AdvReac Type Severity Reaction Status Date / Time No Known Allergies Allergy Verified 01/25/22 11:01 Social History (Updated 01/25/22 @ 13:[address] Brant Alexandra MD) household members: none Smoking Status: Former smoker substance use type: does not use ROS ROS ED Constitutional Constitutional ED: Denies chills, fever(s), subjective, sweats or weight loss Eyes Eyes: Denies blurry vision, change in vision or diplopia ENT ENT ED: Denies ear pain, rhinorrhea or sore throat Cardiovascular Cardiovascular: Denies chest pain, orthopnea, palpitations, paroxysmal nocturnal dyspnea or racing heartbeat Respiratory/Chest Respiratory/Chest: Reports cough, dyspnea and other Details: Patient arrived not using his oxygen. He is on continuous oxygen at 2 L by nasal cannula ; Denies dyspnea on exertion, orthopnea or paroxysmal nocturnal dyspnea Gastrointestinal Gastrointestinal: Denies abdominal pain, nausea or vomiting Musculoskeletal Musculoskeletal: Denies arthralgias, back pain, myalgias or neck pain Integumentary Reports other Details: Open wound dorsal surface of left forearm and anterior right leg Neurologic Neurologic: Denies paresthesias or weakness Hematologic/Lymphatic Hematologic/Lymphatic: Denies easy bleeding or easy bruising Allergic/Immunologic Allergic/Immunologic ED: Denies mouth swelling, tongue swelling or urticaria EXAM Physical Exam Const Vital Signs: 01/25/22 11:02 01/25/22 11:28 Temperature 98.7 F Temperature Source Temporal Pulse Rate 106 H 74 Respiratory Rate 18 18 Blood Pressure 122/58 H Blood Pressure Mean 79 Pulse Ox 86 93 Oxygen Delivery Method Room Air Nasal Cannula Oxygen Flow Rate (L/min) 2 Positive well nourished, well developed, obese and unkempt General Appearance ED: unkempt, well developed and NAD; Negative for cyanotic, diaphoretic or pallor Nutritional Appearance: obese HEENT Reports moist mucous membranes HEENT Narrative: Head is atraumatic normocephalic. Nares patent. Ears normal. Posterior pharynx out erythema or exudate. Eyes PERRL and EOMs intact bilaterally General Eye ED: Negative for pale conjunctiva or scleral icterus Neck no lymphadenopathy, supple and no JVD Chest Wall inspection of chest normal and palpation of chest normal Resp normal respiratory effort and clear to auscultation bilaterally Cardio regular rate, regular rhythm, S1 normal heart sound, S2 normal heart sound and no murmurs Extremity Extremity Narrative: 4 mm x 30 mm skin avulsion distal dorsal left forearm. There is no evidence infection. There is a irregular shaped wound distal anterior right leg with serous drainage. There is surrounding erythema of 2 to 3 cm. There is no lymphangitis. There is no popliteal or inguinal lymphadenopathy. Patient does have stigmata of peripheral arterial disease. Neuro oriented x3, CN's II-XII intact bilaterally and no sensory deficits noted Sensory Exam: sensory level loss detected Psych Appearance: unkempt Skin General Skin Exam: Negative for jaundice or pallor Wounds: wounds noted other Previously typed MDM MDM MDM Narrative Medical decision making narrative: Since patient does not have a physician has not seen a physician in some time and has diabetes will obtain basic metabolic panel to assess glucose, CO2 anion gap and CBC was obtained assess white count differential. Patient was treated with doxycycline. Nurse was instructed to clean and dress the wounds. He was referred to Dr. Browning since he did have a physician and the wound center. Lab Data Attestation: I reviewed the patient's lab results. Lab results narrative: CBC is unremarkable. Glucose is elevated 187. Creatinine is 1.44 which is a proximal . Labs: Laboratory Results - last 24 hr 01/25/22 01/25/22 12:48 12:48 WBC 6.9 RBC 4.85 Hgb 12.6 L Hct 44.1 MCV 90.9 MCH 26.0 L MCHC 28.6 L RDW Std Deviation 56.6 H RDW Coeff of Paula 17.2 H Plt Count 191 MPV 9.5 Immature Gran % (Auto) 0.300 Neut % (Auto) 68.1 Lymph % (Auto) 14.6 L [place] % (Auto) 9.1 Eos % (Auto) 7.0 H Baso % (Auto) 0.9 Absolute Neuts (auto) 4.7 Absolute Lymphs (auto) 1.01 Nucleated RBC % 0 Sodium 139 Potassium 5.9 H Chloride 103 Carbon Dioxide 35.0 H Anion Gap 1 L BUN 37 H Creatinine 1.44 H Estim Creat Clear Calc 49.40 Est GFR (MDRD) Af Amer 62 Est GFR (MDRD) Non-Af 51 L BUN/Creatinine Ratio 25.7 H Glucose 187 H Calcium 8.5 Discharge Plan Triage Chief Complaint: Wound ED Provider: Brant Alexandra Dx/Rx/DC Orders Clinical Impression: Traumatic open wound of right lower leg with infection, Avulsion of skin of left forearm, Type 2 diabetes mellitus, Anemia in stage 3a chronic kidney disease Instructions: ED Cellulitis, ED Skin Avulsion Prescriptions: New doxycycline monohydrate 100 mg capsule 100 mg PO BID Qty: 14 0RF No Action terazosin 5 MG capsule 5 mg PO QHS atorvastatin 40 MG tablet 80 mg PO QHS cyanocobalamin (vitamin B-12) 500 MCG tablet 500 mcg PO DAILY finasteride 5 MG tablet 5 mg PO DAILY insulin aspart U-100 100 UNITS/ML insulin pen 8 units SQ BREAKFAST insulin aspart U-100 100 UNITS/ML insulin pen 11 unit SQ LUNCH insulin aspart U-100 100 UNITS/ML insulin pen 10 unit SQ DINNER omega-3 fatty acids-fish oil 1 EACH capsule 1 cap PO TIDCM magnesium oxide 500 MG capsule 500 mg PO DAILY mv,Ca,nlq-jgtu-YC-lycopene 1 EACH tablet 1 tab PO DAILY vitamins A,C,N-wxqp-lhoejv 1 EACH tablet 1 tab PO BID empagliflozin 10 MG tablet 10 mg PO DAILY Cholecalciferol (Vitamin D3) [Vitamin D3] 25 MCG tablet 75 mcg PO DAILY clopidogrel 75 MG tablet 75 mg PO DAILY insulin glargine 100 UNITS/ML insulin pen 60 units SC DAILY albuterol 90 mcg/actuation Aerosol 1 - 2 mcg INHALATION Q6H PRN PRN (Reason: Shortness Of Breath) Primary Care Provider: [place] Referrals: Lorraine Louis DO [Med Staff - [employer]water [employer] Trapper] - 2 Days for wound check [facility] [Primary Care Provider] - Center,Wound [Non-Staff] - 3-5 Days Activity Restrictions/Additional Instructions: 1. Take antibiotics until gone 2. Do not apply an occlusive dressing to your wounds. This will delay healing. 3. Keep wound clean and dry Disposition Disposition: Home, Self Care
[2022-01-25] MEDS: Doxycycline 100 MG CAPSULE PO (14:03)
[2022-01-25 14:06] VITALS: PULSE 65; O2SAT 90
== END 2022-01-25 14:07 | disposition home or self-care (01) ==
PROVIDERS: Emergency Provider Emergency Medicine; Visit Provider Emergency Medicine
DX: S81.801A Unspecified open wound, right lower leg, initial encounter (principal); J44.9 Chronic obstructive pulmonary disease, unspecified; E11.22 Type 2 diabetes mellitus with diabetic chronic kidney disease; Z79.4 Long term (current) use of insulin; N18.31 Chronic kidney disease, stage 3a; S51.802A Unspecified open wound of left forearm, initial encounter; L08.9 Local infection of the skin and subcutaneous tissue, unspecified; I12.9 Hypertensive chronic kidney disease with stage 1 through stage 4 chronic kidney disease, or unspecified chronic kidney disease; D63.1 Anemia in chronic kidney disease; E66.9 Obesity, unspecified; Z79.899 Other long term (current) drug therapy; Z86.73 Personal history of transient ischemic attack (TIA), and cerebral infarction without residual deficits; Z87.891 Personal history of nicotine dependence; X58.XXXA Exposure to other specified factors, initial encounter
CPT/HCPCS: 80048; 85025; 99284; A4216